=== PATIENT | male | born 1940 | race Caucasian/White ===

== ENCOUNTER 2021-05-23 15:50 | Inpatient (IN) | payer MEDICARE ==
[2021-05-23 15:58] LABS: Glucose,Whole Blood 152 mg/dL (75-99)
[2021-05-23] MEDS ORDERED: SODIUM CHLORIDE 0.9% 1,000 ML IV ONE (16:10)
--- NOTE | 2021-05-23 16:13 | ED ---
General Adult HPI - General Chief complaint: Altered Mental Status Stated complaint: AMS Time Seen by Provider: 05/23/21 15:58 Source: patient, EMS, RN notes reviewed Mode of arrival: EMS Limitations: altered mental status - History of Present Illness Initial comments: Patient is a pleasant 81-year-old male presenting to the emergency department with concerns for change in mental status. Patient is somewhat a poor historian. Patient reportedly drove to his friend's house and was altered. Unclear onset. Patient denies any complaints. Patient denies any weakness. - Related Data Home Medications Medication Instructions Recorded Confirmed Unable To Assess [Unable to Assess] 05/23/21 05/23/21 Allergies Allergy/AdvReac Type Severity Reaction Status Date / Time Unable to Assess Allergy Verified 05/23/21 15:58 Review of Systems ROS Statement: Those systems with pertinent positive or pertinent negative responses have been documented in the HPI. ROS Other: All systems not noted in ROS Statement are negative. Constitutional: Denies: fever Eyes: Denies: eye pain ENT: Denies: ear pain Respiratory: Denies: cough Cardiovascular: Denies: chest pain Endocrine: Denies: fatigue Gastrointestinal: Denies: abdominal pain Genitourinary: Denies: dysuria Musculoskeletal: Denies: back pain Skin: Denies: rash Neurological: Reports: as per HPI. Denies: headache, weakness Past Medical History Past Medical History: Unable to Obtain History of Any Multi-Drug Resistant Organisms: Unobtainable Past Surgical History: Unable to Obtain Past Psychological History: Unable to Obtain Smoking Status: Unknown if ever smoked Past Alcohol Use History: Unable to Obtain Past Drug Use History: Unable to Obtain General Exam Limitations: no limitations General appearance: alert, in no apparent distress Head exam: Present: normocephalic Eye exam: Present: normal appearance, PERRL, EOMI ENT exam: Present: normal oropharynx Neck exam: Present: normal inspection Respiratory exam: Present: normal lung sounds bilaterally Cardiovascular Exam: Present: regular rate, normal rhythm GI/Abdominal exam: Absent: tenderness Extremities exam: Present: normal inspection, full ROM. Absent: tenderness Neurological exam: Present: alert, altered, CN II-XII intact. Absent: motor sensory deficit Expanded Neurological exam: Present: protecting the airway, other (Questionable mild slurred speech intermittently.) Patient oriented to: Present: person. Absent: place, time Cranial nerves: EOM's Intact: Normal Sensory exam: Upper Extremity Light Touch: Normal, Lower Extremity Light Touch: Normal Motor strength exam: RUE: 5, LUE: 5, RLE: 5, LLE: 5 Eye Response: (4) open spontaneously Motor Response: (6) obeys commands Verbal Response: (5) oriented Psychiatric exam: Present: normal affect, normal mood Skin exam: Present: normal color Course Vital Signs 05/23/21 05/23/21 15:52 17:35 Temperature 98.1 F Pulse Rate 104 H 99 Respiratory 20 20 Rate Blood Pressure 204/110 192/102 O2 Sat by Pulse 97 97 Oximetry EKG Findings - EKG Comments: EKG Findings:: Normal sinus rhythm with rate of 92. CA 164. QRS 128. QT 356. QTc 440. Left axis. Right bundle branch block. No acute ST change. Medical Decision Making - Medical Decision Making Patient reevaluated and unchanged. Case was discussed with Dr. Bryant, who will admit covering hospital call. - Lab Data Result diagrams: 05/23/21 16:27 05/23/21 16:27 Lab Results 05/23/21 05/23/21 05/23/21 Range/Units 15:56 16:27 16:27 WBC 9.9 (3.8-10.6) k/uL RBC 4.65 (4.30-5.90) m/uL Hgb 14.5 (13.0-17.5) gm/dL Hct 43.8 (39.0-53.0) % MCV 94.0 (80.0-100.0) fL MCH 31.1 (25.0-35.0) pg MCHC 33.1 (31.0-37.0) g/dL RDW 12.8 (11.5-15.5) % Plt Count 227 (150-450) k/uL MPV 7.3 Neutrophils % (Manual) 79 % Lymphocytes % (Manual) 17 % Monocytes % (Manual) 3 % Eosinophils % (Manual) 1 % Neutrophils # MASTER PRINTER Neutrophils # (Manual) 7.82 H (1.3-7.7) k/uL Lymphocytes # (Manual) 1.68 (1.0-4.8) k/uL Monocytes # (Manual) 0.30 (0-1.0) k/uL Eosinophils # (Manual) 0.10 (0-0.7) k/uL Nucleated RBCs 0 (0-0) /100 WBC Polychromasia Present PT 9.4 (9.0-12.0) sec INR 0.8 (<1.2) APTT 22.1 (22.0-30.0) sec Sodium (137-145) mmol/L Potassium (3.5-5.1) mmol/L Chloride (98-107) mmol/L Carbon Dioxide (22-30) mmol/L Anion Gap mmol/L BUN (9-20) mg/dL Creatinine (0.66-1.25) mg/dL Est GFR (CKD-EPI)AfAm (>60 ml/min/1.73 sqM) Est GFR (CKD-EPI)NonAf (>60 ml/min/1.73 sqM) Glucose (74-99) mg/dL POC Glucose (mg/dL) 152 H (75-99) mg/dL POC Glu Trademark Attorney ID Viky Badillo Calcium (8.4-10.2) mg/dL Total Bilirubin (0.2-1.3) mg/dL AST (17-59) U/L ALT (4-49) U/L Alkaline Phosphatase (38-126) U/L Troponin I (0.000-0.034) ng/mL Total Protein (6.3-8.2) g/dL Albumin (3.5-5.0) g/dL Urine Color Urine Appearance (Clear) Urine pH (5.0-8.0) Ur Specific Tolley (1.001-1.035) Urine Protein (Negative) Urine Glucose (UA) (Negative) Urine Ketones (Negative) Urine Blood (Negative) Urine Nitrite (Negative) Urine Bilirubin (Negative) Urine Urobilinogen (<2.0) mg/dL Ur Leukocyte Esterase (Negative) Urine Opiates Screen (NotDetected) Ur Oxycodone Screen (NotDetected) Urine Methadone Screen (NotDetected) Ur Propoxyphene Screen (NotDetected) Ur Barbiturates Screen (NotDetected) U Tricyclic Antidepress (NotDetected) Ur Phencyclidine Scrn (NotDetected) Ur Amphetamines Screen (NotDetected) U Methamphetamines Scrn (NotDetected) U Benzodiazepines Scrn (NotDetected) Urine Cocaine Screen (NotDetected) U Marijuana (THC) Screen (NotDetected) Coronavirus (PCR) (Not Detectd) 05/23/21 05/23/21 05/23/21 Range/Units 16:27 16:27 16:27 WBC (3.8-10.6) k/uL RBC (4.30-5.90) m/uL Hgb (13.0-17.5) gm/dL Hct (39.0-53.0) % MCV (80.0-100.0) fL MCH (25.0-35.0) pg MCHC (31.0-37.0) g/dL RDW (11.5-15.5) % Plt Count (150-450) k/uL MPV Neutrophils % (Manual) % Lymphocytes % (Manual) % Monocytes % (Manual) % Eosinophils % (Manual) % Neutrophils # Neutrophils # (Manual) (1.3-7.7) k/uL Lymphocytes # (Manual) (1.0-4.8) k/uL Monocytes # (Manual) (0-1.0) k/uL Eosinophils # (Manual) (0-0.7) k/uL Nucleated RBCs (0-0) /100 WBC Polychromasia PT (9.0-12.0) sec INR (<1.2) APTT (22.0-30.0) sec Sodium 139 (137-145) mmol/L Potassium 4.2 (3.5-5.1) mmol/L Chloride 103 (98-107) mmol/L Carbon Dioxide 26 (22-30) mmol/L Anion Gap 10 mmol/L BUN 21 H (9-20) mg/dL Creatinine 1.05 (0.66-1.25) mg/dL Est GFR (CKD-EPI)AfAm 77 (>60 ml/min/1.73 sqM) Est GFR (CKD-EPI)NonAf 66 (>60 ml/min/1.73 sqM) Glucose 158 H (74-99) mg/dL POC Glucose (mg/dL) (75-99) mg/dL POC Glu Trademark Attorney ID Calcium 9.0 (8.4-10.2) mg/dL Total Bilirubin 0.4 (0.2-1.3) mg/dL AST 26 (17-59) U/L ALT 18 (4-49) U/L Alkaline Phosphatase 69 (38-126) U/L Troponin I <0.012 (0.000-0.034) ng/mL Total Protein 6.7 (6.3-8.2) g/dL Albumin 3.9 (3.5-5.0) g/dL Urine Color Light Yellow Urine Appearance Clear (Clear) Urine pH 5.0 (5.0-8.0) Ur Specific Tolley 1.009 (1.001-1.035) Urine Protein Negative (Negative) Urine Glucose (UA) Negative (Negative) Urine Ketones Negative (Negative) Urine Blood Negative (Negative) Urine Nitrite Negative (Negative) Urine Bilirubin Negative (Negative) Urine Urobilinogen <2.0 (<2.0) mg/dL Ur Leukocyte Esterase Negative (Negative) Urine Opiates Screen Not Detected (NotDetected) Ur Oxycodone Screen Not Detected (NotDetected) Urine Methadone Screen Not Detected (NotDetected) Ur Propoxyphene Screen Not Detected (NotDetected) Ur Barbiturates Screen Not Detected (NotDetected) U Tricyclic Antidepress Not Detected (NotDetected) Ur Phencyclidine Scrn Not Detected (NotDetected) Ur Amphetamines Screen Not Detected (NotDetected) U Methamphetamines Scrn Not Detected (NotDetected) U Benzodiazepines Scrn Not Detected (NotDetected) Urine Cocaine Screen Not Detected (NotDetected) U Marijuana (THC) Screen Not Detected (NotDetected) Coronavirus (PCR) (Not Detectd) 05/23/21 Range/Units 17:43 WBC (3.8-10.6) k/uL RBC (4.30-5.90) m/uL Hgb (13.0-17.5) gm/dL Hct (39.0-53.0) % MCV (80.0-100.0) fL MCH (25.0-35.0) pg MCHC (31.0-37.0) g/dL RDW (11.5-15.5) % Plt Count (150-450) k/uL MPV Neutrophils % (Manual) % Lymphocytes % (Manual) % Monocytes % (Manual) % Eosinophils % (Manual) % Neutrophils # Neutrophils # (Manual) (1.3-7.7) k/uL Lymphocytes # (Manual) (1.0-4.8) k/uL Monocytes # (Manual) (0-1.0) k/uL Eosinophils # (Manual) (0-0.7) k/uL Nucleated RBCs (0-0) /100 WBC Polychromasia PT (9.0-12.0) sec INR (<1.2) APTT (22.0-30.0) sec Sodium (137-145) mmol/L Potassium (3.5-5.1) mmol/L Chloride (98-107) mmol/L Carbon Dioxide (22-30) mmol/L Anion Gap mmol/L BUN (9-20) mg/dL Creatinine (0.66-1.25) mg/dL Est GFR (CKD-EPI)AfAm (>60 ml/min/1.73 sqM) Est GFR (CKD-EPI)NonAf (>60 ml/min/1.73 sqM) Glucose (74-99) mg/dL POC Glucose (mg/dL) (75-99) mg/dL POC Glu Trademark Attorney ID Calcium (8.4-10.2) mg/dL Total Bilirubin (0.2-1.3) mg/dL AST (17-59) U/L ALT (4-49) U/L Alkaline Phosphatase (38-126) U/L Troponin I (0.000-0.034) ng/mL Total Protein (6.3-8.2) g/dL Albumin (3.5-5.0) g/dL Urine Color Urine Appearance (Clear) Urine pH (5.0-8.0) Ur Specific Tolley (1.001-1.035) Urine Protein (Negative) Urine Glucose (UA) (Negative) Urine Ketones (Negative) Urine Blood (Negative) Urine Nitrite (Negative) Urine Bilirubin (Negative) Urine Urobilinogen (<2.0) mg/dL Ur Leukocyte Esterase (Negative) Urine Opiates Screen (NotDetected) Ur Oxycodone Screen (NotDetected) Urine Methadone Screen (NotDetected) Ur Propoxyphene Screen (NotDetected) Ur Barbiturates Screen (NotDetected) U Tricyclic Antidepress (NotDetected) Ur Phencyclidine Scrn (NotDetected) Ur Amphetamines Screen (NotDetected) U Methamphetamines Scrn (NotDetected) U Benzodiazepines Scrn (NotDetected) Urine Cocaine Screen (NotDetected) U Marijuana (THC) Screen (NotDetected) Coronavirus (PCR) Not Detected (Not Detectd) - Radiology Data Radiology results: report reviewed (Computed tomography scan of the brain reveals infarcts that appear old new from previous.), image reviewed (Chest x- ray shows mild interstitial infiltrate and atelectasis.) Disposition Clinical Impression: Altered mental status Disposition: ADMITTED IP TO THIS HOSP Is patient prescribed a controlled substance at d/c from ED?: No Referrals: None,Stated [Primary Care Provider] - 1-2 days Decision Time: 18:59
[2021-05-23 16:39] LABS: Appearance,Urine Clear (Clear); Bilirubin,Urine Negative (Negative); Blood,Urine Negative (Negative); Color,Urine Light Yellow; Glucose,Urine (UA) Negative (Negative); Ketones,Urine Negative (Negative); Leukocyte Esterase,Urine Negative (Negative); Nitrite,Urine Negative (Negative); Protein,Urine Negative (Negative); Specific Gravity,Urine 1.009 (1.001-1.035); Urobilinogen,Urine <2.0 mg/dL (<2.0)
[2021-05-23 16:45] LABS: Albumin 3.9 g/dL (3.5-5.0); HCT 43.8 % (39.0-53.0); HGB 14.5 gm/dL (13.0-17.5); MCH 31.1 pg (25.0-35.0); MCHC 33.1 g/dL (31.0-37.0); Mean Platelet Volume 7.3; Platelet Count 227 k/uL (150-450); Potassium 4.2 mmol/L (3.5-5.1); RBC 4.65 m/uL (4.30-5.90); RDW 12.8 % (11.5-15.5); Total Bilirubin 0.4 mg/dL (0.2-1.3); Total Protein 6.7 g/dL (6.3-8.2); WBC 9.9 k/uL (3.8-10.6)
[2021-05-23 16:52] LABS: Amphetamine Screen,Urine Not Detected (NotDetected); Barbiturate Screen,Urine Not Detected (NotDetected); Benzodiazepines Screen,Urine Not Detected (NotDetected); Cocaine Screen,Urine Not Detected (NotDetected); Methadone Screen, Urine Not Detected (NotDetected); Opiate Screen,Urine Not Detected (NotDetected); Oxycodone Screen, Urine Not Detected (NotDetected); Phencyclidine Screen,Urine Not Detected (NotDetected); Tricyclic Antidepressant,Urine Not Detected (NotDetected); Urn Cannabinoid Scrn Not Detected (NotDetected)
--- NOTE | 2021-05-23 17:07 | CT ---
EXAMINATION TYPE: CT brain wo con DATE OF EXAM: 05/23/2021 COMPARISON: 05/10/2012 HISTORY: altered mental status CT DLP: 1099.4 mGycm Automated exposure control for dose reduction was used. FINDINGS: Images obtained without contrast. There is diffuse cerebral atrophy. There is no mass effect or midli ne shift. There is no sign of intracranial hemorrhage. There is some hypodensity in the left and righ t internal capsule bilaterally. Skull base is intact. Calvarium is intact. IMPRESSION: Cerebral atrophy. 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
[2021-05-23 17:13] LABS: Lymphocytes # (M) 1.68 k/uL (1.0-4.8); Neutrophils # (M) 7.82 k/uL (1.3-7.7); Neutrophils % (M) 79 %; Nucleated Red Blood Cells 0 /100 WBC (0-0); Total Cells Counted 100
[2021-05-23 17:14] LABS: Polychromasia Present
--- NOTE | 2021-05-23 17:20 | XR ---
EXAMINATION TYPE: XR chest 2V DATE OF EXAM: 05/23/2021 COMPARISON: NONE HISTORY: Altered mental status TECHNIQUE: 2 views FINDINGS: Heart is normal. Lungs are clear of consolidation. There are no hilar masses. There are mohit e mild interstitial density at the lung bases. Bony thorax is intact. IMPRESSION: Mild interstitial infiltrate and subsegmental atelectasis at the lung bases. Normal heart . No heart failure.
[2021-05-23 17:25] LABS: INR 0.8 (<1.2); Partial Thromboplastin Time 22.1 sec (22.0-30.0); Prothrombin Time 9.4 sec (9.0-12.0)
[2021-05-23] MEDS ORDERED: amLODIPine 5 MG TAB PO STA ×2 (17:42→20:53)
[2021-05-23] MEDS ORDERED: NALOXONE 0.4 MG/ML 1 ML VIAL IV PRN (18:59)
[2021-05-23] MEDS: ASPIRIN 325 MG TAB PO SCH (20:23)
[2021-05-23] MEDS: SODIUM CHLORIDE 0.9% 1,000 ML IV SCH (20:23)
--- NOTE | 2021-05-24 00:33 | P.HPIM ---
History of Present Illness H&P Date: 05/23/21 Chief Complaint: altered mental status 81 year old male with unknown past medical history patient unable to provide any meaningful history , he was uncooperative initially wanting to leave, with some reassurance, he became pleasant and was only interested in fooling around. he was arm wrestling me, or squeezes my hands really hard during exam , almost kicked me couple times as a joke while doing neuro exam , he looks well, but pleasantly confused and does not provide any meaningful history and he currently denies any medical concerns , and answers with no to all review of systems which is unreliable , otherwise he does not answer any questions related to his living conditions and becomes immediately suspicious when asked such questions. ER reported that he drove himself to a friend house, who found the patient unlike his normal self and a bit more confused, and decided to get him to the hospital for evaluation . workup in the ED showed no electrolytes abnormalities. CT of the brain , suggested some old bilateral lacunar infarcts. Review of Systems ROS unobtainable: due to mental status Past Medical History Past Medical History: Unable to Obtain History of Any Multi-Drug Resistant Organisms: Unobtainable Past Surgical History: Unable to Obtain Past Psychological History: Unable to Obtain Smoking Status: Unknown if ever smoked Past Alcohol Use History: Unable to Obtain Past Drug Use History: Unable to Obtain - Past Family History family Family Medical History: No Reported History Medications and Allergies Home Medications Medication Instructions Recorded Confirmed Type Unable To Assess [Unable to Assess] 05/23/21 05/23/21 History Allergies Allergy/AdvReac Type Severity Reaction Status Date / Time Unable to Assess Allergy Verified 05/23/21 15:58 Physical Exam Vitals: Vital Signs Temp Pulse Resp BP Pulse Ox 05/23/21 20:23 98 18 172/117 93 L 05/23/21 17:35 99 20 192/102 97 05/23/21 15:52 98.1 F 104 H 20 204/110 97 Intake and Output 05/23/21 05/23/21 05/23/21 06:59 14:59 22:59 Other: Weight 81.964 kg Constitutional: No acute distress, paranoid, dressed in his casual clothes refusing hospital gown , not cooperative with meds and care. Eyes: Anicteric sclerae, moist conjunctiva, Pupils equal round reactive to light ENMT: NC/AT otherwise limited Neck: Supple, no masses, or JVD No carotid bruits No thyromegaly Lungs: inspirtory rales audible bilaterally at lung bases otherwise good air entry Clear to percussion Normal respiratory effort, no accessory muscle use Cardiovascular: Heart regular in rate and rhythm, No murmurs, gallops, or rubs No peripheral edema Abdominal: limited exam Soft Nontender, no guarding, rebound or rigidity Abdomen moving with respiration Normoactive bowel sounds Skin: visible portion of the skin looked Normal temperature, tone, texture, turgor Extremities: No digital cyanosis No clubbing Pedal pulses intact and symmetrical Radial pulses intact and symmetrical No calf tenderness Psychiatric: Alert and oriented self only Neuro Muscles Strength 5/5 in all 4 extremities Sensation to light touch grossly present throughout did not cooperated with cranial nerve exam able to stand up quickly when asked , patient did not walk for no specific reason Lymphatics: no palpable cervical or supraclavicular lymph nodes Results CBC & Chem 7: 05/23/21 16:27 05/23/21 16:27 Labs: Abnormal Lab Results - Last 24 Hours (Table) 05/23/21 05/23/21 05/23/21 Range/Units 15:56 16:27 16:27 Neutrophils # (Manual) 7.82 H (1.3-7.7) k/uL BUN 21 H (9-20) mg/dL Glucose 158 H (74-99) mg/dL POC Glucose (mg/dL) 152 H (75-99) mg/dL Assessment and Plan Assessment: patient resisting care altered mental status , unknown underlying cause, rule out stroke ASA, statin check echocardiogram neuro checks neuro eval fall precautions check thyroid function follow up labs CT of the brain reviewed showed old bilateral lacunar infarcts allow permissive hypertension today unknown past medical history blood work overall unremarkable attempt to contact family if possible unable to discuss code status DVT PPX mechanical anticipated length of stay > 2 midnights
[2021-05-24] MEDS ORDERED: cloNIDine HCL 0.2 MG TAB PO PRN (00:35)
[2021-05-24] MEDS ORDERED: LORazepam 2 MG/ML INJ IV STA (07:48)
[2021-05-24] MEDS: SODIUM CHLORIDE 0.9% 1,000 ML IV SCH ×2 (08:13→21:40)
[2021-05-24 09:12] LABS: African American GFR (CKD) 77 (>60 ml/min/1.73 sqM); Anion Gap 8 mmol/L; Blood Urea Nitrogen 15 mg/dL (9-20); Calcium 9.2 mg/dL (8.4-10.2); Carbon Dioxide 26 mmol/L (22-30); Chloride 106 mmol/L (98-107); Glucose 128 mg/dL (74-99); Non-African American GFR(CKD) 66 (>60 ml/min/1.73 sqM); Potassium 3.9 mmol/L (3.5-5.1); Sodium 140 mmol/L (137-145)
[2021-05-24 09:28] LABS: HCT 47.4 % (39.0-53.0); HGB 15.4 gm/dL (13.0-17.5); MCHC 32.6 g/dL (31.0-37.0); MCV 95.2 fL (80.0-100.0); Mean Platelet Volume 7.5; Platelet Count 243 k/uL (150-450); RBC 4.98 m/uL (4.30-5.90); WBC 10.3 k/uL (3.8-10.6)
[2021-05-24 09:59] LABS: Lymphocytes # (M) 1.65 k/uL (1.0-4.8); Monocytes # (M) 0.21 k/uL (0-1.0); Neutrophils # (M) 8.34 k/uL (1.3-7.7); Neutrophils % (M) 81 %; Nucleated Red Blood Cells 0 /100 WBC (0-0); Total Cells Counted 100
--- NOTE | 2021-05-24 10:47 | US ---
EXAMINATION TYPE: US carotid duplex BILAT DATE OF EXAM: 05/24/2021 COMPARISON: NONE CLINICAL HISTORY: possible stroke . AMA, poor historian EXAM MEASUREMENTS: RIGHT: Peak Systolic Velocity (PSV) cm/sec ----- Right CCA: 61.7 ----- Right ICA: 59.8 ----- Right ECA: 140.0 ICA/CCA ratio: 1.0 RIGHT: End Diastole cm/sec ----- Right CCA: 9.1 ----- Right ICA: 13.0 ----- Right ECA: 0.0 LEFT: Peak Systolic Velocity (PSV) cm/sec ----- Left CCA: 90.1 ----- Left ICA: 90.7 ----- Left ECA: 130.0 ICA/CCA ratio: 1.0 LEFT: End Diastole cm/sec ----- Left CCA: 9.8 ----- Left ICA: 18.9 ----- Left ECA: 0.0 VERTEBRALS (direction of flow): Right Vertebral: Antegrade Left Vertebral: Antegrade Rhythm: Normal No wall thickening or plaque. No significant stenosis. Bilateral elevated ECA velocities. IMPRESSION: Less than 50% stenosis of the bilateral carotid bifurcations. Criteria for Assigning % of Stenosis / Diameter reduction (Estimation based on the indirect measurements of the internal carotid artery velocities (ICA PSV). 1. Normal (no stenosis)=ICA PSV < 125 cm/s: ratio < 2.0: ICA EDV<40 cm/s. 2. Less than 50% stenosis=ICA PSV < 125 cm/s: ratio < 2.0: ICA EDV<40 cm/s. 3. 50 to 69% stenosis=ICA PSV of 125 to 230 cm/s: ration 2.0 ? 4.0: ICA EDV 40-100 cm/s. 4. Greater than 70% stenosis to near occlusion= ICA PSV > 230 cm/s: ratio > 4.0: ICA EDV > 100 cm/s. 5. Near occlusion= ICA PSV velocities may be low or undetectable: variable ratio and ICA EDV. 6. Total occlusion=unable to detect flow.
--- NOTE | 2021-05-24 12:17 | P.CNNES ---
History of Present Illness Consult date: 05/24/21 Requesting physician: Sita Fountain Reason for Consult: stroke History of Present Illness: This is a 81-year-old gentleman with unknown medical history who presented emergency department on 05/23/2021 for altered mental status. Patient is a poor historian. History is obtained from medical record that. Per the ED note and it is reported that patient reportedly drove to his friend's house and was altered and unclear onset but he denied any complaints to the ED team and denied any weakness. per the patient's nurse patient is having difficulty speaking and had some slurring of speech. He got agitated and as result he was Ativan 1mg. Upon seeing him he could not provide with history. Some of the workup in the hospital consisted of: Initial vital signs is blood pressure of 204/110, heart rate of 104, respiratory of 20, and per Dr. of 98.1 Fahrenheit oral and pulse ox of 97% room air. Most recent blood pressure is 171/99. CBC with differential is unremarkable Chemistry panel is the initial serum glucose is 158 otherwise the rest of the chemistry panel is unremarkable. TSH is 2.220. Urinalysis negative for urinary tract infection. Urine drug screen is nondetected Garcia virus PCR is negative CT of the head is reported as cerebral atrophy. Bilateral lacunar infarct in the internal capsule which appears old R change compared to old exam and old exam was comparison for CT of the head was in 2013 Per the nurse overnight the patient was agitated and wanted to Levaquin was restless as a result patient received Ativan 1 mg around 7:48am today. Review of Systems Review of system is limited but the parent positive and negative as per HPI. Past Medical History Past Medical History: Unable to Obtain History of Any Multi-Drug Resistant Organisms: Unobtainable Past Surgical History: Unable to Obtain Past Psychological History: Unable to Obtain Smoking Status: Unknown if ever smoked Past Alcohol Use History: Unable to Obtain Past Drug Use History: Unable to Obtain - Past Family History family Family Medical History: No Reported History Medications and Allergies Home Medications Medication Instructions Recorded Confirmed Type Unable To Assess [Unable to Assess] 05/23/21 05/23/21 History Allergies Allergy/AdvReac Type Severity Reaction Status Date / Time Unable to Assess Allergy Verified 05/23/21 15:58 Physical Examination - Vital Signs Vital Signs: Vital Signs Temp Pulse Pulse Resp BP BP Pulse Ox 05/24/21 04:00 88 18 192/88 97 05/24/21 00:00 82 18 179/90 96 05/23/21 23:21 89 18 171/99 95 05/23/21 22:09 85 18 176/112 96 05/23/21 20:23 98 18 172/117 93 L 05/23/21 17:35 99 20 192/102 97 05/23/21 15:52 98.1 F 104 H 20 204/110 97 Intake and Output 05/23/21 05/24/21 05/24/21 22:59 06:59 14:59 Other: Weight 81.964 kg GENERAL: The patient is lying in bed and does not seem in acute distress. CHEST: The heart rate is regular rate rhythm. No murmurs to auscultation. No carotid bruit bilaterally. LUNG: Clear to auscultation bilaterally no wheezing noted throughout. Not labored breathing. ABDOMEN/GI: Bowel sounds present in all 4 quadrants. No tenderness to palpation throughout. NEUROLOGICAL: Higher mental function: The patient is awake, alert, oriented to self. He could not tell me year or month. Patient is able to name telephone correctly but could not name watch or cup. Patient is following few simple commands. It seems he has expressive aphasia. No neglect. Cranial nerves: The pupils are round, equal and reactive to light. Has mild ptosis over the left eyes. Visual farrell are full to confrontation throughout. Extraocular movement is intact no nystagmus is noted. No facial weakness. Is very hard of hearing bilaterally. Tongue is midline and moved [id number] without any difficulty. Has moderate dysarthria. Motor: Gait is deferred. The strength is 5 over 5 throughout uppers and lifting bilateral lower above gravity and no focality noted (could not evaluated lower individual muscle because of cooperation). Normal tone and bulk. Cerebellum: Normal finger to nose over right but would not cooperate for left. Sensation: Could not assess because of cooperation. Reflexes (right/left): 2+ throughout except ankles are 1+. Plantars are mute bilaterally. Results - Laboratory Findings CBC and BMP: 05/24/21 08:12 05/24/21 08:12 Abnormal Lab Findings: Abnormal Labs 01/21/22 01/21/22 01/21/22 15:56 16:27 16:27 Neutrophils # (Manual) 7.82 H BUN 21 H Glucose 158 H POC Glucose (mg/dL) 152 H 05/24/21 05/24/21 08:12 08:12 Neutrophils # (Manual) 8.34 H BUN Glucose 128 H POC Glucose (mg/dL) Assessment and Plan Assessment: Altered mental status: Encephalopathy of unknown etiology. On examination I feel patient has expressive aphasia and dysarthria: Rule out acute ischemic stroke. 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 2-D echo, carotid duplex is ordered and is pending I ordered MRI of the brain and routine EEG. Ordered vitamin B12, folate. Lipid pane, TSH and HbA1c are ordered is pending PT, OT, [employer] SCIENTIST are consulted I started the patient on Seroquel 25 mg daily at bedtime for agitation. Please avoid any sedation especially in elderly patient which can worsens his agitation. Sedation should be used as last resort in elderly patient's. We'll defer the rest of the medical management to primary team The plan was discussed with the primary team and his nurse. We'll try to find out whether the patient has any family members or friends that we can contact for more history. Thank you for the consultation. UPDATE: The patient's nurse spoke with the patient's friend, who stated that patient resides byself but is independent and it seems he went to lead mechanic shop yesterday then went next door to restaurant and was confused. He is very hard of hearing at baseline and stutters. The friend is not sure about his medical history. Fredo Mcfadden M.D. Neuro-Hospitalist Time with Patient: Greater than 30
--- NOTE | 2021-05-24 14:01 | ECHOF ---
Referral Reason:possible stroke MEASUREMENTS -------- HEIGHT: 175.3 cm WEIGHT: 4.5 kg BP: IVSd: 1.3 cm (0.6 - 1.1) LVIDd: 3.8 cm (3.9 - 5.3) LVPWd: 1.5 cm (0.6 - 1.1) IVSs: 1.7 cm LVIDs: 2.7 cm LVPWs: 1.6 cm Ao Diam: 2.6 cm (2.0 - 3.7) AV Cusp: 3.2 cm (1.5 - 2.6) MV E Torres: 0.09 m/s MV DecT: 98 ms MV A Torres: 0.04 m/s MV E/A Ratio: 2.16 RAP: 5.00 mmHg RVSP: 13.38 mmHg FINDINGS -------- Sinus rhythm. This was a technically adequate study. LV size, wall thickness and systolic function are normal, with an EF greater than 55%. The left brennen tricular size is normal. The right ventricle is normal in size. The left atrial size is normal. The right atrial size is normal. There is mild aortic valve sclerosis. There is no evidence of aortic regurgitation. Mild mitral regurgitation is present. Mild tricuspid regurgitation present. Right ventricular systolic pressure is normal at < 35 mmHg. The pulmonic valve was not well visualized. CONCLUSIONS -------- 1. LV size, wall thickness and systolic function are normal, with an EF greater than 55%. 2. The left ventricular size is normal. 3. The right ventricle is normal in size. 4. The left atrial size is normal. 5. The right atrial size is normal. 6. There is mild aortic valve sclerosis. 7. Mild mitral regurgitation is present. 8. Mild tricuspid regurgitation present. 9. The pulmonic valve was not well visualized. RENT AND HOUSING INVESTIGATOR: Ewa Askew RDCS
--- NOTE | 2021-05-24 15:04 | MR ---
EXAMINATION TYPE: MR brain wo/w con DATE OF EXAM: 05/24/2021 COMPARISON: CT brain yesterday HISTORY: Altered mental status. CONTRAST: Standard multiplanar, multisequence MRI departmental protocol images were obtained without contrast a nd with 8 mL intravenous Gadavist gadolinium contrast. There is diffuse cerebral atrophy. There is no mass effect or midline shift. There is mild enlargemen t of the ventricles. There is a 2 x 0.7 cm area of increased signal in the right internal capsule on the diffusion images suggestive of an acute infarct. There is patchy increased signal in the perivent ricular white matter on the T2 and FLAIR images with coalescent areas measuring up to 1 cm in thickne ss. There is irregular mild increased signal in the amos in the midline and towards the left side measuri ng 10 mm and consistent with ischemia. There is no evidence of posterior fossa mass. There is thinning of the corpus callosum. There is no e vidence of orbital mass. Sella turcica appears normal. IMPRESSION: There is evidence of acute or subacute infarct right internal capsule. Cerebral atrophy and extensive white matter changes consistent with chronic small vessel ischemia or demyelinating disease.
[2021-05-24] MEDS: ATORVASTATIN 40 MG TAB PO SCH (15:22)
[2021-05-24] MEDS: ASPIRIN 325 MG TAB PO SCH (15:22)
[2021-05-24 17:42] LABS: LDL Cholesterol,Calculated 132.8 mg/dL (0.0-131.0); VLDL Calculation 14.92 mg/dL (5.00-40.00)
--- NOTE | 2021-05-24 18:11 | P.PN ---
Subjective Progress Note Date: 05/24/21 (delayed charting seen at 1030) Principal diagnosis: confusion Patient is an 81-year-old female with a known past medical history who was brought in by friends do to confusion. In the ER he underwent an extensive evaluation. CT head was obtained which showed bilateral lacunar infarcts. He was found to be hypertensive with blood pressure of 204/110 on arrival. Laboratory analysis is unremarkable. He was admitted for possible stroke. He was seen by neurology who ordered an MRI, EEG. Patient seen and examined at bedside. He wants to leave and does not understand the hospital. He believes it is 2001. He is able to tell me his first and last name and that he has born in January but not the date and year. He is also very worried about how much information we all know about him. General: non toxic, no distress, appears at stated age Derm: warm, dry Head: atraumatic, normocephalic, symmetric Eyes: EOMI, no lid lag, anicteric sclera Mouth: no lip lesion, mucus membranes moist Cardiovascular: S1S2 reg, no murmur, positive posterior tibial pulse bilateral, Lungs: CTA bilateral, no rhonchi, no rales , no accessory muscle use Abdominal: soft, nontender to palpation, no guarding, no appreciable organomegaly Ext: no gross muscle atrophy, no edema, no contractures Neuro: Pupils equal round reactive to light, extraocular motion intact, finger to nose normal, muscle strength 5 out of 5 in bilateral upper and lower extremities. Word finding difficulties with stuttering. Psych: Alert, oriented 1. 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 Discussed with neurology -Await echocardiogram, EEG, and MRI of the brain -All of her permissive hypertension -Lipid profile, TSH, and vitamin B12 as well as folic acid are all within normal limits -Neuro checks -Aspirin -Statin -Telemetry DVT prophylaxis: Lovenox Discussed with: patient, nursing, neurology Anticipated discharge: undetermined Anticipated discharge place: undetermined A total of 35 minutes was spent on the care of this complex patient more than 50% of the time was spent in counseling and care coordination. Objective - Vital Signs Vital signs: Vital Signs Temp 98 F 05/24/21 12:00 Pulse 77 05/24/21 12:00 Resp 18 05/24/21 12:00 BP 147/75 05/24/21 12:00 Pulse Ox 97 05/24/21 12:00 Intake & Output 05/23/21 05/24/21 05/24/21 18:59 06:59 18:59 Output Total 1 Balance -1 Weight 81.964 kg 81.964 kg Output: Urine 1 Other: # Voids 1 - Labs CBC & Chem 7: 05/24/21 08:12 05/24/21 08:12 Labs: Abnormal Lab Results - Last 24 Hours (Table) 05/24/21 05/24/21 05/24/21 Range/Units 08:12 08:12 08:12 Neutrophils # (Manual) 8.34 H (1.3-7.7) k/uL Glucose 128 H (74-99) mg/dL Hemoglobin A1c 6.5 H (0.0-6.0) % LDL Cholesterol, Calc 132.8 H (0.0-131.0) mg/dL
[2021-05-24] MEDS: QUEtiapine 25 MG TAB PO SCH (20:40)
[2021-05-25] MEDS: ENOXAPARIN 40 MG/0.4 ML SYRINGE SQ SCH (09:37)
[2021-05-25] MEDS: ATORVASTATIN 40 MG TAB PO SCH (09:38)
[2021-05-25] MEDS: ASPIRIN 81 MG PO SCH (09:38)
[2021-05-25] MEDS: CLOPIDOGREL 75 MG TAB PO SCH (09:38)
[2021-05-25] MEDS: lisinopriL 20 MG TAB PO SCH (09:38)
[2021-05-25] MEDS: SODIUM CHLORIDE 0.9% 1,000 ML IV SCH (09:39)
--- NOTE | 2021-05-25 14:16 | P.PN ---
Subjective Progress Note Date: 05/25/21 The patient is seen at bedside and per his nurse no confusion. According to nurse, she spoke to his sister who feels he is slurred and his language is not same as prior. Also, it seems, the patient is not following-up with PCP and does not spend any money for medication. He was independent prior to this. Objective - Vital Signs Vital signs: Vital Signs Temp 98 F 05/25/21 08:00 Pulse 78 05/25/21 11:46 Resp 18 05/25/21 11:46 BP 132/64 05/25/21 11:46 Pulse Ox 97 05/25/21 11:46 Intake & Output 05/24/21 05/25/21 05/25/21 18:59 06:59 18:59 Output Total 3 Balance -3 Weight 81.964 kg Output: Urine 3 Other: # Voids 1 2 - Exam GENERAL: The patient is lying in bed and does not seem in acute distress. NEUROLOGICAL: Higher mental function: The patient is awake, alert, oriented to self. He stated the year is 2021 and month is July. He could not tell me place but to options he correctly chose Hospital. Patient is able to name telephone, glasses, and pen. Patient is following few simple commands. It seems he has mi ld expressive aphasia. There is some delay in response. No neglect. Cranial nerves: The pupils are round, equal and reactive to light. Has mild ptosis over the left eye. Visual farrell are full to confrontation throughout. Extraocular movement is intact no nystagmus is noted. No facial weakness. Is very hard of hearing bilaterally. Tongue is midline and moved [id number] without any difficulty. Has moderate dysarthria. Motor: Gait is deferred. The strength is 5 over 5 throughout uppers and lowers. Normal tone and bulk. Cerebellum: Normal finger to nose bilaterally.. Sensation: Was hard to assess but on repeated try he stated normal.. Reflexes (right/left): 2+ throughout except ankles are 1+. Plantars are mute bilaterally. WORK-UP: TSH is 2.220. Lipid panel is triglyceride of 74, cholesterol 197, LDL of 132, HDL of 49. Serum Vitamin B12 is 275 was considered low normal. Folate is 10.5. Hemoglobin A1c is 6.5 Urinalysis negative for urinary tract infection. Urine drug screen is nondetected Rousseau virus PCR is negative 2-D echo was reported as left ventricular size is normal. Ejection fraction greater than 55%. Left atrial size is normal. Carotid duplex is reported as less than 50% stenosis bilateral carotid bifurcation. CT of the head is reported as cerebral atrophy. Bilateral lacunar infarct in the internal capsule which appears old R change compared to old exam and old exam was comparison for CT of the head was in 2012 MRI of the brain is reported as there is evidence of acute or subacute infarct in the right internal capsule. She will atrophy and extensive white matter changes consistent with chronic small vessel ischemia or edema in disease. I personally reviewed the CT of the head and I felt that ischemic stroke was more Rousseau radiata them basal ganglia in location. - Labs CBC & Chem 7: 05/24/21 08:12 05/24/21 08:12 Labs: Abnormal Lab Results - Last 24 Hours (Table) 05/24/21 Range/Units 08:12 LDL Cholesterol, Calc 132.8 H (0.0-131.0) mg/dL Assessment and Plan Assessment: * Acute to subacute ischemic stroke (It is reported as right basal ganglia but I felt more rousseau radiata). On physical exam has mild expressive aphasia and dysarthria. Etiology likely small vessel disease. No IV tpa since outside window. 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 * Very hard of hearing bilaterally * Non-compliant seeing Primary care and not taking medication (his sister notified nurse) Plan: * Started the patient on ASA 81mg and Plavix 75mg (new for both during hospital stay). The patient to be on dual antiplatelets for 21 days and after that to stop Plavix but indefinitely continue aspirin 81 mg daily. Continue Lipitor 40 mg daily at bedtime for secondary stroke prophylaxis with LDL goal less than 70 and strokes. * On cardiac monitoring and the while he was on it there is no A. fib or flutter per the nurse patient refuses to wear it. * Very low normal Vitamin B12 (275). Normal is between 200-944. I started the patient on vitamin B-12 1000 g IM for 2 days and after that by mouth after that. I started the patient on folic acid 1 mg daily * Continue neuro checks * PT, OT, BAR CAPTAIN are consulted * I canceled the EEG since it is not warranted since his symptoms are due to stroke and not altered mental status. Per nurse patient has not had altered mental status yesterday in AM or overnight. If patient has any further confusion recommend getting a routine EEG. * I started the patient on gabapentin the 100 mg 1 tablet twice a day since she was complaining of numbness and tingling of both hands. Possibly consider EMG with nerve conduction as an outpatient if the patient continues to have neuropathy. His neuropathy could be due to diabetes another possibility is a very low normal vitamin B12. * Continue Seroquel 25 mg daily at bedtime for agitation. Please avoid any sedation especially in elderly patient which can worsens his agitation. Sedation should be used as last resort in elderly patient's. * We'll defer the rest of the medical management to primary team. * Upon discharge the patient needs to follow-up with a neurologist as outpatient within 1-2 weeks. The plan was discussed with the primary team and his nurse. If patient continues to be doing well by tomorrow no further work-up and patient is clear for discharge by tomorrow from neurological perspective. Dr. Tyson will start neurology service tomorrow AM. Fredo Mcfadden M.D. Neuro-Hospitalist Time with Patient: Less than 30
[2021-05-25] MEDS ORDERED: GABAPENTIN 100 MG CAP PO STA (14:17)
[2021-05-25] MEDS: FOLIC ACID 1 MG TAB PO SCH (16:48)
[2021-05-25] MEDS: CYANOCOBALAMIN 1,000 MCG/ML 1 ML VIAL IM SCH (16:48)
--- NOTE | 2021-05-25 18:00 | P.PN ---
Subjective Progress Note Date: 05/25/21 (Delayed charting patient seen at 10:30) Principal diagnosis: confusion Patient is an 81-year-old female with a known past medical history who was brought in by friends do to confusion. In the ER he underwent an extensive evaluation. CT head was obtained which showed bilateral lacunar infarcts. He was found to be hypertensive with blood pressure of 204/110 on arrival. Laboratory analysis is unremarkable. He was admitted for possible stroke. He was seen by neurology who ordered an MRI, EEG. MRI brain demonstrated acute or subacute infarct in the right internal capsule, carotid Dopplers are less than 50% stenosis bilateral. Echocardiogram demonstrated an ejection fraction of 55%, telemetry without any signs of atrial fibrillation Patient seen and examined at bedside. He was wanting to be discharged. He is forgetting that he had an acute stroke. He denies any nausea, vomiting, or chest pain. He states he is fine to return home. General: non toxic, no distress, appears at stated age Derm: warm, dry Head: atraumatic, normocephalic, symmetric Eyes: EOMI, no lid lag, anicteric sclera Mouth: no lip lesion, mucus membranes moist Cardiovascular: S1S2 reg, no murmur, positive posterior tibial pulse bilateral, Lungs: CTA bilateral, no rhonchi, no rales , no accessory muscle use Abdominal: soft, nontender to palpation, no guarding, no appreciable organomegaly Ext: no gross muscle atrophy, no edema, no contractures Neuro: Pupils equal round reactive to light, extraocular motion intact, uvula elevation equal, no tongue deviation finger to nose normal, muscle strength 5 out of 5 in bilateral upper and lower extremities. Patient is able to maintain a phone and a watch. He calls a fork filter but is able to tell me that he uses to eat. Psych: Alert, oriented to self and being in the hospital. He is unable to remember which hospital. He believes it is 2001. Assessment/Plan: Subacute infarct in the right internal capsule Old basil ganglia ischemic stroke Hearing difficulties Hypertensive urgency-undetermined if in reaction to stroke or could be causing encephalopathy -Neurology recommendations appreciated. Discussed with neurology -Patient has completed permissive hypertension. Lisinopril initiated. -Lipid profile, TSH, and vitamin B12 as well as folic acid are all within normal limits -Neuro checks -Aspirin, Plavix -Statin -Telemetry DVT prophylaxis: Lovenox Discussed with: patient, nursing, neurology Anticipated discharge: Likely in a.m. Anticipated discharge place: Anticipate will need rehab A total of 35 minutes was spent on the care of this complex patient more than 50% of the time was spent in counseling and care coordination. Active Medications Aspirin (Aspirin 81 Mg) 81 mg PO DAILY [facility] Last Admin: 05/25/21 09:38 Dose: 81 mg Documented by: Atorvastatin Calcium (Atorvastatin 40 Mg Tab) 40 mg PO DAILY [facility] Last Admin: 05/25/21 09:38 Dose: 40 mg Documented by: Clonidine (Clonidine Hcl 0.2 Mg Tab) 0.2 mg PO TID PRN PRN Reason: Blood Pressure - High Clopidogrel Bisulfate (Clopidogrel 75 Mg Tab) 75 mg PO DAILY [facility] Last Admin: 05/25/21 09:38 Dose: 75 mg Documented by: Cyanocobalamin (Cyanocobalamin 1,000 Mcg/Ml 1 Ml Vial) 1,000 mcg IM DAILY [facility] Stop: 05/26/21 17:00 Last Admin: 05/25/21 16:48 Dose: Not Given Documented by: Cyanocobalamin (Cyanocobalamin 500 Mcg Tab) 1,000 mcg PO DAILY [facility] Enoxaparin Sodium (Enoxaparin 40 Mg/0.4 Ml Syringe) 40 mg SQ DAILY [facility] Last Admin: 05/25/21 09:37 Dose: 40 mg Documented by: Folic Acid (Folic Acid 1 Mg Tab) 1 mg PO DAILY [facility] Last Admin: 05/25/21 16:48 Dose: Not Given Documented by: Gabapentin (Gabapentin 100 Mg Cap) 100 mg PO BID [facility] Sodium Chloride (Saline 0.9%) 1,000 mls @ 75 mls/hr IV .[id number] [facility] Last Admin: 05/25/21 09:39 Dose: Not Given Documented by: Lisinopril (Lisinopril 20 Mg Tab) 20 mg PO DAILY [facility] Last Admin: 05/25/21 09:38 Dose: 20 mg Documented by: Naloxone HCl (Naloxone 0.4 Mg/Ml 1 Ml Vial) 0.2 mg IV Q2M PRN PRN Reason: Opioid Reversal Quetiapine Fumarate (Quetiapine 25 Mg Tab) [address] [facility] Last Admin: 05/24/21 20:40 Dose: 25 mg Documented by: Objective - Vital Signs Vital signs: Vital Signs Temp 98 F 05/25/21 08:00 Pulse 78 01/23/22 11:46 Resp 18 05/25/21 11:46 BP 132/64 05/25/21 11:46 Pulse Ox 97 05/25/21 11:46 Intake & Output 05/24/21 05/25/21 05/25/21 18:59 06:59 18:59 Output Total 3 Balance -3 Weight 81.964 kg Output: Urine 3 Other: Voiding Method Incontinent # Voids 1 2 1 - Labs CBC & Chem 7: 05/24/21 08:12 05/24/21 08:12
[2021-05-25] MEDS: QUEtiapine 25 MG TAB PO SCH (20:41)
[2021-05-25] MEDS: GABAPENTIN 100 MG CAP PO SCH (20:50)
[2021-05-26] MEDS: SODIUM CHLORIDE 0.9% 1,000 ML IV SCH ×3 (01:12→20:58)
[2021-05-26] MEDS: ASPIRIN 81 MG PO SCH (09:03)
[2021-05-26] MEDS: CLOPIDOGREL 75 MG TAB PO SCH (09:03)
[2021-05-26] MEDS: LINAGLIPTIN 5 MG TABLET PO SCH (09:04)
[2021-05-26] MEDS: CYANOCOBALAMIN 1,000 MCG/ML 1 ML VIAL IM SCH (09:04)
[2021-05-26] MEDS: ENOXAPARIN 40 MG/0.4 ML SYRINGE SQ SCH ×2 (09:04→09:19)
[2021-05-26] MEDS: ATORVASTATIN 40 MG TAB PO SCH (09:04)
[2021-05-26] MEDS: FOLIC ACID 1 MG TAB PO SCH (09:04)
[2021-05-26] MEDS: lisinopriL 20 MG TAB PO SCH (09:04)
[2021-05-26] MEDS: GABAPENTIN 100 MG CAP PO SCH ×2 (09:09→20:58)
--- NOTE | 2021-05-26 13:33 | P.PN ---
Subjective Progress Note Date: 05/26/21 Principal diagnosis: confusion Patient is an 81-year-old female with a known past medical history who was brought in by friends do to confusion. In the ER he underwent an extensive evaluation. CT head was obtained which showed bilateral lacunar infarcts. He w as found to be hypertensive with blood pressure of 204/110 on arrival. Laboratory analysis is unremarkable. He was admitted for possible stroke. He was seen by neurology who ordered an MRI, EEG. MRI brain demonstrated acute or subacute infarct in the right internal capsule, carotid Dopplers are less than 50% stenosis bilateral. Echocardiogram demonstrated an ejection fraction of 55%, telemetry without any signs of atrial fibrillation. LDL was 132. A1C 6.5 consistent wiht pre-diabetes. He was having significant speech and cognitive dysfunction and will require rehab placement. Patient seen and examined at bedside. He is asked to go home. We again discussed that he had a stroke and he is having word finding difficulties and difficulty with concentration that he needs to work with therapy. He again struggles with these concepts. General: non toxic, no distress, appears at stated age Derm: warm, dry Head: atraumatic, normocephalic, symmetric Eyes: EOMI, no lid lag, anicteric sclera Mouth: no lip lesion, mucus membranes moist Cardiovascular: S1S2 reg, no murmur, positive posterior tibial pulse bilateral, Lungs: CTA bilateral, no rhonchi, no rales , no accessory muscle use Abdominal: soft, nontender to palpation, no guarding, no appreciable organomegaly Ext: no gross muscle atrophy, no edema, no contractures Neuro: Pupils equal round reactive to light, extraocular motion intact, uvula elevation equal, no tongue deviation finger to nose normal, muscle strength 5 out of 5 in bilateral upper and lower extremities. Patient is able to maintain a phone and a watch. He calls a fork filter but is able to tell me that he uses to eat. Psych: Alert, oriented to self and being in the hospital. 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 -Patient has completed permissive hypertension. Lisinopril initiated and blood pressure well controlled -Lipid profile, TSH, and vitamin B12 as well as folic acid are all within normal limits -Neuro checks -Aspirin, Plavix -Statin -Telemetry Diabetes mellitus type 2 newly discovered, A1c 6.5 -Start should gentle and -Follow blood sugars every morning -Carb consistent diet. DVT prophylaxis: Lovenox Discussed with: patient, nursing, neurology Anticipated discharge: once bed available at rehab Anticipated discharge place: Anticipate will need rehab A total of 35 minutes was spent on the care of this complex patient more than 50% of the time was spent in counseling and care coordination. Active Medications Generic Name Dose Route Start Last Admin Trade Name Freq PRN Reason Stop Dose Admin Aspirin 81 mg 05/25/21 09:00 05/26/21 09:03 Aspirin 81 Mg PO 81 mg DAILY [facility] Administration Atorvastatin Calcium 40 mg 05/24/21 09:00 05/26/21 09:04 Atorvastatin 40 Mg Tab PO 40 mg DAILY [facility] Administration Clonidine 0.2 mg 05/24/21 00:35 Clonidine Hcl 0.2 Mg Tab PO TID PRN Blood Pressure - High Clopidogrel Bisulfate 75 mg 05/25/21 09:00 05/26/21 09:03 Clopidogrel 75 Mg Tab PO 75 mg DAILY [facility] Administration Cyanocobalamin 1,000 mcg 05/25/21 14:15 05/26/21 09:04 Cyanocobalamin 1,000 Mcg/Ml 1 Ml Vial IM 05/26/21 17:00 Not Given DAILY [facility] Cyanocobalamin 1,000 mcg 05/27/21 09:00 Cyanocobalamin 500 Mcg Tab PO DAILY [facility] Enoxaparin Sodium 40 mg 05/25/21 09:00 05/26/21 09:19 Enoxaparin 40 Mg/0.4 Ml Syringe SQ Not Given DAILY [facility] Folic Acid 1 mg 05/25/21 14:15 05/26/21 09:04 Folic Acid 1 Mg Tab PO 1 mg DAILY [facility] Administration Gabapentin 100 mg 05/25/21 21:00 05/26/21 09:09 Gabapentin 100 Mg Cap PO 100 mg BID [facility] Administration Sodium Chloride 1,000 mls @ 75 mls/hr 05/23/21 19:00 05/26/21 01:12 Saline 0.9% IV Not Given .[id number] [facility] Linagliptin 5 mg 05/26/21 09:00 05/26/21 09:04 Linagliptin 5 Mg Tablet PO 5 mg DAILY [facility] Administration Lisinopril 20 mg 05/25/21 09:00 05/26/21 09:04 Lisinopril 20 Mg Tab PO 20 mg DAILY [facility] Administration Naloxone HCl 0.2 mg 05/23/21 18:59 Naloxone 0.4 Mg/Ml 1 Ml Vial IV Q2M PRN Opioid Reversal Quetiapine Fumarate 25 mg 05/24/21 21:00 05/25/21 20:41 Quetiapine 25 Mg Tab PO 25 mg HS [facility] Administration Objective - Vital Signs Vital signs: Vital Signs Temp 97.8 F 05/26/21 08:59 Pulse 92 05/26/21 13:24 Resp 18 05/26/21 13:24 BP 121/68 05/26/21 13:24 Pulse Ox 94 L 05/26/21 13:24 Intake & Output 05/25/21 05/26/21 05/26/21 18:59 06:59 18:59 Other: Voiding Method Incontinent Incontinent # Voids 1 2 - Labs CBC & Chem 7: 05/24/21 08:12 05/24/21 08:12
[2021-05-26] MEDS: QUEtiapine 25 MG TAB PO SCH (20:56)
[2021-05-27] MEDS ORDERED: CYANOCOBALAMIN 500 MCG TAB PO SCH (09:00)
[2021-05-27 09:30] VITALS: RESP 20
[2021-05-27] MEDS: ENOXAPARIN 40 MG/0.4 ML SYRINGE SQ SCH (09:30)
[2021-05-27 09:31] LABS: Potassium 4.3 mmol/L (3.5-5.1)
[2021-05-27] MEDS: ASPIRIN 81 MG PO SCH (09:31)
[2021-05-27] MEDS: LINAGLIPTIN 5 MG TABLET PO SCH (09:31)
[2021-05-27] MEDS: lisinopriL 20 MG TAB PO SCH (09:31)
[2021-05-27] MEDS: FOLIC ACID 1 MG TAB PO SCH (09:31)
[2021-05-27] MEDS: GABAPENTIN 100 MG CAP PO SCH (09:31)
[2021-05-27] MEDS: CLOPIDOGREL 75 MG TAB PO SCH (09:31)
[2021-05-27] MEDS: ATORVASTATIN 40 MG TAB PO SCH (09:31)
[2021-05-27 13:01] VITALS: BP 164/95; PULSE 70; TEMP 98
--- NOTE | 2021-05-27 14:10 | P.DS ---
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 In the ER he underwent an extensive evaluation. CT head was obtained which showed bilateral lacunar infarcts. He was found to be hypertensive with blood pressure of 204/110 on arrival. Laboratory analysis is unremarkable. He was admitted for possible stroke. He was seen by neurology who ordered an MRI, EEG. MRI brain demonstrated acute or subacute infarct in the right internal capsule, carotid Dopplers are less than 50% stenosis bilateral. Echocardiogram demonstrated an ejection fraction of 55%, telemetry without any signs of atrial fibrillation. LDL was 132. A1C 6.5 consistent with pre-diabetes. He was having significant speech and cognitive dysfunction and requires rehab placement. Patient seen and examined at bedside. He is agreeable to go to rehab, he has no complaints currently. no nausea no vomiting. Vital signs reviewed and stable. General: non toxic, no distress, appears at stated age Derm: warm, dry Head: atraumatic, normocephalic, symmetric Eyes: EOMI, no lid lag, anicteric sclera Mouth: no lip lesion, mucus membranes moist Cardiovascular: S1S2 reg, no murmur, positive posterior tibial pulse bilateral, Lungs: CTA bilateral, no rhonchi, no rales , no accessory muscle use Abdominal: soft, nontender to palpation, no guarding, no appreciable organomegaly Ext: no gross muscle atrophy, no edema, no contractures Neuro: stuttering, EOMI, PERRL, no focal neuro deficits Psych: Alert, oriented to self and place, appropriate affect A total of 42 minutes of time were spent preparing this complex discharge summary . Plan - Discharge Summary New Discharge Prescriptions: New Folic Acid 1 mg PO DAILY tab Gabapentin [Neurontin] 100 mg PO BID #60 cap Linagliptin [Tradjenta] 5 mg PO DAILY tablet lisinopriL [Zestril] 20 mg PO DAILY tab Aspirin 81 mg PO DAILY Atorvastatin [Lipitor] 40 mg PO DAILY tab Clopidogrel [Plavix] 75 mg PO DAILY #0 tab QUEtiapine [SEROquel] 25 mg PO HS #0 tab Discharge Medication List Aspirin 81 mg PO DAILY 05/27/21 [Rx] Atorvastatin [Lipitor] 40 mg PO DAILY tab 05/27/21 [Rx] Clopidogrel [Plavix] 75 mg PO DAILY #0 tab 05/27/21 [Rx] Folic Acid 1 mg PO DAILY tab 05/27/21 [Rx] Gabapentin [Neurontin] 100 mg PO BID #60 cap 05/27/21 [Rx] Linagliptin [Tradjenta] 5 mg PO DAILY tablet 05/27/21 [Rx] QUEtiapine [SEROquel] 25 mg PO HS #0 tab 05/27/21 [Rx] lisinopriL [Zestril] 20 mg PO DAILY tab 05/27/21 [Rx] Follow up Appointment(s)/Referral(s): None,Stated [Primary Care Provider] - 1-2 days Activity/Diet/Wound Care/Special Instructions: Activity: as tolerated Diet: heart healthy Special Instructions: take AM blood sugar daily
== END 2021-05-27 15:41 | DRG 65 ==
LOC: EC 15:50 → 3SCARD 18:59
PROVIDERS: ADMIT Internal Medicine; ATTEND Internal Medicine
DX: I63.9 Cerebral infarction, unspecified (principal); G93.40 Encephalopathy, unspecified; E11.9 Type 2 diabetes mellitus without complications; E78.5 Hyperlipidemia, unspecified; H91.93 Unspecified hearing loss, bilateral; I10 Essential (primary) hypertension; I16.0 Hypertensive urgency; I65.23 Occlusion and stenosis of bilateral carotid arteries; Z20.822 Contact with and (suspected) exposure to COVID-19; R47.01 Aphasia; Z79.02 Long term (current) use of antithrombotics/antiplatelets; Z79.82 Long term (current) use of aspirin; Z79.84 Long term (current) use of oral hypoglycemic drugs; Z79.899 Other long term (current) drug therapy; Z86.73 Personal history of transient ischemic attack (TIA), and cerebral infarction without residual deficits; Z91.19 Patient's noncompliance with other medical treatment and regimen
CPT/HCPCS: 36415; 70450; 70553; 71046; 80048; 80053; 80061; 80306; 81003; 82140; 82607; 82746; 83036; 84443; 84484; 85025; 85610; 85730; 87635; 93005; 93306; 93880; 99285

== ENCOUNTER 2021-07-01 09:49 | Inpatient (IN) | payer MEDICARE ==
[2021-07-01] MEDS ORDERED: SODIUM CHLORIDE 0.9% 500 ML 500 ML IV STA (09:52)
[2021-07-01 09:58] LABS: Glucose,Whole Blood 147 mg/dL (75-99)
--- NOTE | 2021-07-01 10:38 | CT ---
EXAMINATION TYPE: CT brain wo con for TPA DATE OF EXAM: 07/01/2021 COMPARISON: CT dated 05/23/2021 and MRI dated 05/24/2021 HISTORY: Stroke, altered mental status CT DLP: 1183.8 mGycm Automated exposure control for dose reduction was used. TECHNIQUE: CT scan of the brain is performed without IV contrast administration. FINDINGS: Generalized brain volume loss changes, likely age-related. Bilateral cerebral white matter hypodensit ies, likely representing chronic microvascular ischemic changes. Tiny chronic infarct is seen in the right cerebellar hemisphere with another infarct in the right basal ganglia region. Chronic small lac unar infarct in the posterior limb of the left internal capsule as well as in the left side of the po ns. No acute intracranial hemorrhage or gross acute cortical infarct. No midline shift or herniation. Unr emarkable basal cisterns, sella and CP angles. No gross space-occupying lesion, vasogenic edema or ma ss effect. 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 Unremarkable orbits otherwise. Bilateral maxillary sinus polyps/retention cysts. Clear mastoid air cells. Unremarkable calvarial bones. IMPRESSION: Brain volume loss changes, chronic ischemic changes and scattered chronic infarcts as described above . No acute intracranial hemorrhage or gross acute cortical infarct however a small acute or hyperacut e infarct cannot be excluded.
[2021-07-01] MEDS ORDERED: hydrALAZINE HCL 20 MG/ML 1 ML VIAL IVP STA (10:44)
[2021-07-01 10:48] LABS: INR 0.9 (<1.2); Partial Thromboplastin Time 22.5 sec (22.0-30.0); Prothrombin Time 9.7 sec (9.0-12.0)
[2021-07-01 10:49] LABS: Albumin 3.7 g/dL (3.5-5.0); Calcium 8.8 mg/dL (8.4-10.2); Potassium 4.1 mmol/L (3.5-5.1); Total Bilirubin 0.5 mg/dL (0.2-1.3); Total Protein 6.5 g/dL (6.3-8.2)
[2021-07-01 11:04] LABS: HCT 41.8 % (39.0-53.0); HGB 14.3 gm/dL (13.0-17.5); MCH 31.4 pg (25.0-35.0); MCHC 34.2 g/dL (31.0-37.0); MCV 91.9 fL (80.0-100.0); Mean Platelet Volume 7.3; Platelet Count 216 k/uL (150-450); RBC 4.55 m/uL (4.30-5.90); RDW 12.7 % (11.5-15.5); WBC 9.1 k/uL (3.8-10.6)
--- NOTE | 2021-07-01 11:10 | CT ---
EXAMINATION TYPE: CT angio head neck DATE OF EXAM: 07/01/2021 HISTORY: Neuro deficit COMPARISON: CT brain same date MRI 05/24/2021 CT DLP: 466.5 mGycm. Automated Exposure Control for Dose Reduction was Utilized. TECHNIQUE: CTA scan of the neck is performed with IV Contrast, patient injected with 65 mL of Isovue 370, axial images are obtained, coronal and sagittal reformatted images are reviewed. 3D reconstruct ed images are created on an independent workstation and reviewed. FINDINGS: Carotid/Vascular Structures: The transverse aorta, 3 super aortic branch vessels are patent, left and right subclavian arteries, innominate artery, common carotid artery show no significant stenosis, th ere are atheromatous changes. The common carotid, internal and external carotid arteries are patent. Vertebral arteries are patent, left vertebral artery is dominant. There is no evident dissection, ane urysm, or embolus. No significant stenosis of the proximal internal carotid arteries. Anterior and posterior circulation are patent within the brain. No evident aneurysm, stenosis, dissec tion, or embolus. Other: Degenerative disc changes are present in the visualized spine. Multilevel foraminal encroachme nt is present. Possible mucus retention cyst or polyp present within the maxillary sinuses. IMPRESSION: No significant abnormality is seen. Consider MRI follow-up. NASCET criteria was used in interpretation of this exam?
--- NOTE | 2021-07-01 11:14 | ED ---
General Adult HPI - General Chief complaint: Altered Mental Status Stated complaint: Stroke Time Seen by Provider: 07/01/21 09:49 Source: patient, EMS, RN notes reviewed, old records reviewed Mode of arrival: EMS Limitations: altered mental status - History of Present Illness Initial comments: This is an 81-year-old male who came in his constitution party one stroke patient according to the staff there he normally has some slurred speech for previous stroke which occurred about a month ago but this morning his speech was much worse and he had left-sided weakness. According to EMS as left-sided weakness had resolved and he continued have some slurred speech versus some word salad. A code alteplase was called prior to patient's arrival on arrival I assessed the patient his speech was clear and he was not a candidate for TPA because of the recent previous stroke as well as the fact that we can find no new deficit. Patient is a very poor historian but he was able to move all 4 extremities with equal strength and was able to count to 5 clearly. - Related Data Home Medications Medication Instructions Recorded Confirmed Atorvastatin Calcium [Lipitor] 40 mg PO HS 07/01/21 07/01/21 Clopidogrel [Plavix] 75 mg PO DAILY@0800 07/01/21 07/01/21 Folic Acid 1 mg PO DAILY@0800 07/01/21 07/01/21 Healthshake 1 dose PO TID-W/MEALS 07/01/21 07/01/21 Linagliptin [Tradjenta] 5 mg PO DAILY@0800 07/01/21 07/01/21 QUEtiapine [SEROquel] 100 mg PO HS 07/01/21 07/01/21 Previous Rx's Medication Instructions Recorded Aspirin 81 mg PO DAILY 05/27/21 Gabapentin [Neurontin] 100 mg PO BID #60 cap 05/27/21 lisinopriL [Zestril] 20 mg PO DAILY tab 05/27/21 Allergies Allergy/AdvReac Type Severity Reaction Status Date / Time No Known Allergies Allergy Verified 07/01/21 10:35 Review of Systems ROS Statement: Those systems with pertinent positive or pertinent negative responses have been documented in the HPI. ROS Other: All systems not noted in ROS Statement are negative. Past Medical History Past Medical History: No Reported History Additional Past Medical History / Comment(s): Per sister, denies any medial di agnosis History of Any Multi-Drug Resistant Organisms: Unobtainable Past Surgical History: No Surgical Hx Reported Additional Past Surgical History / Comment(s): Per sister, no surgical interventions, patient did have eye injury at 9 years old with branch from tree Past Anesthesia/Blood Transfusion Reactions: No Reported Reaction Past Psychological History: No Psychological Hx Reported Smoking Status: Never smoker Past Alcohol Use History: None Reported Past Drug Use History: None Reported - Past Family History family Family Medical History: Cancer Additional Family Medical History / Comment(s): Father of lung cancer. Mother had Breast Cancer. Brother of pancreatic cancer. brother of colon cancer. Was the forth child out of sever, oldest living ouf of siblings General Exam - General Exam Comments Initial Comments: GENERAL: Patient is well-developed and well-nourished. Patient is nontoxic and well- hydrated and is in no acute distress. ENT: Neck is soft and supple. No significant lymphadenopathy is noted. Oropharynx is clear. Moist mucous membranes. Neck has full range of motion without eliciting any pain. EYES: The sclera were anicteric and conjunctiva were pink and moist. Extraocular movements were intact and pupils were equal round and reactive to light. Eyelids were unremarkable. PULMONARY: Unlabored respirations. Good breath sounds bilaterally. No audible rales rhonchi or wheezing was noted. CARDIOVASCULAR: There is a regular rate and rhythm without any murmurs gallops or rubs. Femoral pulses are equal bilaterally ABDOMEN: Soft and nontender with normal bowel sounds. No palpable organomegaly was noted. There is no palpable pulsatile mass. SKIN: Skin is clear with no lesions or rashes and otherwise unremarkable. NEUROLOGIC: Patient is alert and oriented 1. Cranial nerves II through XII are grossly intact. Motor and sensory are also intact. Normal speech, volume and content. Symmetrical smile. MUSCULOSKELETAL: Normal extremities with adequate strength and full range of motion. LYMPHATICS: No significant lymphadenopathy is noted PSYCHIATRIC: Unable to assess Limitations: altered mental status Course Vital Signs 07/01/21 07/01/21 07/01/21 09:51 10:05 10:20 Temperature 97.0 F L 98.5 F 98.5 F Pulse Rate 88 87 85 Respiratory 18 18 18 Rate Blood Pressure 225/112 207/109 190/76 O2 Sat by Pulse 95 98 98 Oximetry 07/01/21 07/01/21 07/01/21 10:35 10:45 10:50 Temperature 98.5 F 98.5 F Pulse Rate 89 85 92 Respiratory 18 18 18 Rate Blood Pressure 170/96 220/170 181/97 O2 Sat by Pulse 97 96 95 Oximetry 07/01/21 07/01/21 11:05 12:03 Temperature 98.4 F Pulse Rate 97 106 H Respiratory 18 18 Rate Blood Pressure 140/65 167/78 O2 Sat by Pulse 97 97 Oximetry Medical Decision Making - Medical Decision Making EKG shows sinus rhythm at 91 bpm RI interval is 183 QRS is 1:30 for QT interval 375 QTC is 424 per patient's EKG shows no ST segment elevation or depression. CT of the brain showed no acute abnormality. CT angiogram of the head and neck show no acute abnormalities. Patient did not have any deficit while in the emergency department. I spoke with Dr. Vivas he agreed to admit the patient admitted the patient I consult the neurology. - Lab Data Result diagrams: 07/01/21 10:28 Lab Results 07/01/21 07/01/21 07/01/21 Range/Units 09:54 10:28 10:28 Neutrophils % (Manual) 86 % Lymphocytes % (Manual) 10 % Monocytes % (Manual) 3 % Eosinophils % (Manual) 1 % Nucleated RBCs 0 (0-0) /100 WBC Manual Slide Review Performed PT 9.7 (9.0-12.0) sec INR 0.9 (<1.2) APTT 22.5 (22.0-30.0) sec Sodium (137-145) mmol/L Potassium (3.5-5.1) mmol/L Chloride (98-107) mmol/L Carbon Dioxide (22-30) mmol/L Anion Gap mmol/L BUN (9-20) mg/dL Creatinine (0.66-1.25) mg/dL Est GFR (CKD-EPI)AfAm (>60 ml/min/1.73 sqM) Est GFR (CKD-EPI)NonAf (>60 ml/min/1.73 sqM) Glucose (74-99) mg/dL POC Glucose (mg/dL) 147 H (75-99) mg/dL POC Glu [employer] Aylin Theodore Calcium (8.4-10.2) mg/dL Total Bilirubin (0.2-1.3) mg/dL AST (17-59) U/L ALT (4-49) U/L Alkaline Phosphatase (38-126) U/L Troponin I (0.000-0.034) ng/mL Total Protein (6.3-8.2) g/dL Albumin (3.5-5.0) g/dL Urine Color Urine Appearance (Clear) Urine pH (5.0-8.0) Ur Specific [place] (1.001-1.035) Urine Protein (Negative) Urine Glucose (UA) (Negative) Urine Ketones (Negative) Urine Blood (Negative) Urine Nitrite (Negative) Urine Bilirubin (Negative) Urine Urobilinogen (<2.0) mg/dL Ur Leukocyte Esterase (Negative) 07/01/21 07/01/21 07/01/21 Range/Units 10:28 10:28 11:58 Neutrophils % (Manual) % Lymphocytes % (Manual) % Monocytes % (Manual) % Eosinophils % (Manual) % Nucleated RBCs (0-0) /100 WBC Manual Slide Review PT (9.0-12.0) sec INR (<1.2) APTT (22.0-30.0) sec Sodium 140 (137-145) mmol/L Potassium 4.1 (3.5-5.1) mmol/L Chloride 105 (98-107) mmol/L Carbon Dioxide 27 (22-30) mmol/L Anion Gap 8 mmol/L BUN 18 (9-20) mg/dL Creatinine 1.06 (0.66-1.25) mg/dL Est GFR (CKD-EPI)AfAm 76 (>60 ml/min/1.73 sqM) Est GFR (CKD-EPI)NonAf 66 (>60 ml/min/1.73 sqM) Glucose 110 H (74-99) mg/dL POC Glucose (mg/dL) (75-99) mg/dL POC Glu Tower Excavator Operator ID Calcium 8.8 (8.4-10.2) mg/dL Total Bilirubin 0.5 (0.2-1.3) mg/dL AST 18 (17-59) U/L ALT 11 (4-49) U/L Alkaline Phosphatase 66 (38-126) U/L Troponin I <0.012 (0.000-0.034) ng/mL Total Protein 6.5 (6.3-8.2) g/dL Albumin 3.7 (3.5-5.0) g/dL Urine Color Light Yellow Urine Appearance Clear (Clear) Urine pH 6.5 (5.0-8.0) Ur Specific [place] 1.010 (1.001-1.035) Urine Protein Negative (Negative) Urine Glucose (UA) Negative (Negative) Urine Ketones Negative (Negative) Urine Blood Negative (Negative) Urine Nitrite Negative (Negative) Urine Bilirubin Negative (Negative) Urine Urobilinogen <2.0 (<2.0) mg/dL Ur Leukocyte Esterase Negative (Negative) Disposition Clinical Impression: TIA (transient ischemic attack) Disposition: ADMITTED IP TO THIS HOSP Referrals: Michael Diego DO [Primary Care Provider] - 1-2 days Time of Disposition: 13:13
[2021-07-01 11:51] LABS: Neutrophils % (M) 86 %; Nucleated Red Blood Cells 0 /100 WBC (0-0); Total Cells Counted 100
--- NOTE | 2021-07-01 11:59 | XR ---
EXAMINATION TYPE: XR chest 2V DATE OF EXAM: 07/01/2021 COMPARISON: Chest x-ray May 23, 2021 HISTORY: AMS and confusion. TECHNIQUE: Frontal and lateral views of the chest are obtained. FINDINGS: Low lung volumes and scattered chronic parenchymal changes redemonstrated. There is no new suspicious focal air space opacity, pleural effusion, or pneumothorax seen. The cardiac silhouette size remains within normal limits. The osseous structures are intact. IMPRESSION: Chronic changes without new acute pulmonary process.
[2021-07-01 12:13] LABS: Appearance,Urine Clear (Clear); Bilirubin,Urine Negative (Negative); Blood,Urine Negative (Negative); Color,Urine Light Yellow; Glucose,Urine (UA) Negative (Negative); Ketones,Urine Negative (Negative); Leukocyte Esterase,Urine Negative (Negative); Nitrite,Urine Negative (Negative); PH, Urine 6.5 (5.0-8.0); Protein,Urine Negative (Negative); Urobilinogen,Urine <2.0 mg/dL (<2.0)
[2021-07-01] MEDS ORDERED: CALCIUM CARBONATE 500 MG CHEWABLE PO PRN (13:26)
[2021-07-01] MEDS ORDERED: ONDANSETRON 4 MG/2 ML VIAL IVP PRN (13:26)
[2021-07-01] MEDS ORDERED: NALOXONE 0.4 MG/ML 1 ML VIAL IV PRN (13:26)
[2021-07-01] MEDS ORDERED: LACTULOSE 20 GM/30 ML CUP PO PRN (13:26)
[2021-07-01] MEDS ORDERED: ACETAMINOPHEN TAB 325 MG TAB PO PRN (13:26)
[2021-07-01] MEDS ORDERED: MELATONIN 3 MG TABLET PO PRN (13:26)
--- NOTE | 2021-07-01 14:59 | P.HPIM ---
History of Present Illness H&P Date: 07/01/21 Chief Complaint: Left-sided weakness This is a 81-year-old patient who follows with Dr. Diego. As per the ER physician patient is brought in for a stroke and the staff and reported that patient had had some slurred speech and a baseline from previous stroke which happened about a month ago this morning patient became much worse and had left- sided weakness. Then per the EMS the left-sided weakness had resolved but continued to have some slurred speech. Some word salad. When the patient arrived to speech was more clear and is felt not to be candidate for TPA. In t he ER physician could not find a new deficit. Patient not a very good historian. Does not complain of any vision changes or headache. Moving all his for his limbs. Patient was discharged on May 27 being here for about 4 days with a subacute infarct in the right internal Serial with resultant speech delay and cognitive reasoning deficit, hypertensive urgency. Chronic stable medical conditions include or basal ganglia, hearing difficulties, diabetes mellitus type 2, hyperlipidemia. Patient was discharged to rehab. EMS notes additionally stated: Patient's friend stated that patient showed up to his house confused and appeared that he was unit due to dizziness bands. As per the friend he was not making much sense not acting like his baseline. Patient normally lives alone and is usually able to care for himself. EMS stroke assessment was negative. Patient was initially uncooperative about coming to the hospital. His initial blood pressure recorded was over 200 systolic Review of systems:: Difficult obtained because of patient's speech GEN.: None EYES: None HEENT: Decreased hearing NECK: None RESPIRATORY: None CARDIOVASCULAR: None GASTROINTESTINAL: None GENITOURINARY: None MUSCULOSKELETAL: None LYMPHATICS: None HEMATOLOGICAL: None PSYCHIATRY: Bit confused NEUROLOGICAL: As above Past medical history to include: Right internal capsule infarct causing speech delay and cognitive impairment in May 2021, old basal ganglia ischemic stroke, hearing difficulties, hyper tensive, diabetes type 2, hyperlipidemia Social history: Lives alone. Nonsmoking. No alcohol. Family history: Lung cancer, breast cancer, pancreatic cancer, colon cancer Physical examination: VITAL SIGNS: 98.4, 97, 18, 140/65, 97% room air. Blood pressure presentation was 225/112] GENERAL: BMI 25.3, laying in bed, anxious, moving all limbs. EYES: Pupils equal. Conjunctiva normal. HEENT: External appearance of nose and ears normal, oral cavity grossly normal. NECK: JVD not raised; masses not palpable. HEART: First and second heart sounds are normal; no edema. LUNGS: Respiratory rate normal; clear to auscultation. ABDOMEN: Soft, nontender, liver spleen not palpable, no masses palpable. PSYCH: Difficult to assess, anxiousl. MUSCULOSKELETAL:No Clubbing/cyanosis;muscles-grossly intact NEUROLOGICAL: [Cranial nerves grossly intact; no facial asymmetry, patient is moving all 4 limbs.. Speech sometimes doesn't make sense, slow LYMPHATICS: No lymph nodes palpable in neck and axilla INVESTIGATIONS, reviewed in the clinical context: White count 9.1 hemoglobin 14.3 platelets 216 sodium 140 potassium 4.1 creatinine 1.06 Troponin I less than 0.012 UA: Negative EKG tracing personally reviewed by me: Right bundle-branch block, sinus rhythm Chest x-ray film personally reviewed by me-possible chronic changes CT angiogram head and neck: JVD T changes. Nothing acute CT brain without contrast for TPA: Pain volume loss changes, chronic ischemic changes and scattered chronic infarct. Lacunar infarct cannot be ruled out. Assessment and plan: -Possible acute lacunar infarct/stroke versus TIA, in a patient with a stroke just over a month ago Consults neurology. Not a candidate for TPA symptoms improved in the ER. Continue aspirin and Plavix. Lipitor 40 mg daily at bedtime -Essential hypertension with emergency Given blood in 24 hours blood pressures being washed. Repeat blood pressure is coming down. Continue with Zestril 20 mg a day -Hyperlipidemia Lipitor 40 mg daily at bedtime -Diabetes mellitus type 2 trajenta 5 mg daily. Follow Accu-Cheks with sliding scale. 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 Resume home medications. Neuro checks. Consult neurology. Patient has rather extensive neurological workup on the recent admission. We'll probably, need a MRI Consult speech therapy, PT OT. Past Medical History Past Medical History: No Reported History Additional Past Medical History / Comment(s): Per sister, denies any medial diagnosis History of Any Multi-Drug Resistant Organisms: Unobtainable Past Surgical History: No Surgical Hx Reported Additional Past Surgical History / Comment(s): Per sister, no surgical interventions, patient did have eye injury at 9 years old with branch from tree Past Anesthesia/Blood Transfusion Reactions: No Reported Reaction Past Psychological History: No Psychological Hx Reported Smoking Status: Never smoker Past Alcohol Use History: None Reported Past Drug Use History: None Reported - Past Family History family Family Medical History: Cancer Additional Family Medical History / Comment(s): Father of lung cancer. Mother had Breast Cancer. Brother of pancreatic cancer. brother of colon cancer. Was the forth child out of sever, oldest living ouf of siblings Medications and Allergies Home Medications Medication Instructions Recorded Confirmed Type Aspirin 81 mg PO DAILY 05/27/21 07/01/21 Rx Gabapentin [Neurontin] 100 mg PO BID #60 cap 05/27/21 07/01/21 Rx lisinopriL [Zestril] 20 mg PO DAILY tab 05/27/21 07/01/21 Rx Atorvastatin Calcium [Lipitor] 40 mg PO HS 07/01/21 07/01/21 History Clopidogrel [Plavix] 75 mg PO DAILY@0800 07/01/21 07/01/21 History Folic Acid 1 mg PO DAILY@0800 07/01/21 07/01/21 History Healthshake 1 dose PO TID-W/MEALS 07/01/21 07/01/21 History Linagliptin [Tradjenta] 5 mg PO DAILY@0800 07/01/21 07/01/21 History QUEtiapine [SEROquel] 100 mg PO HS 07/01/21 07/01/21 History Allergies Allergy/AdvReac Type Severity Reaction Status Date / Time No Known Allergies Allergy Verified 07/01/21 10:35 Physical Exam Vitals: Vital Signs Temp Pulse Resp BP Pulse Ox 07/01/21 12:03 106 H 18 167/78 97 07/01/21 11:05 98.4 F 97 18 140/65 97 07/01/21 10:50 98.5 F 92 18 181/97 95 07/01/21 10:45 85 18 220/170 96 07/01/21 10:35 98.5 F 89 18 170/96 97 07/01/21 10:20 98.5 F 85 18 190/76 98 07/01/21 10:05 98.5 F 87 18 207/109 98 07/01/21 09:51 97.0 F L 88 18 225/112 95 Intake and Output 06/30/21 07/01/21 07/01/21 22:59 06:59 14:59 Other: Weight 77.8 kg Results CBC & Chem 7: 07/01/21 10:28 07/01/21 10:28 Labs: Abnormal Lab Results - Last 24 Hours (Table) 07/01/21 07/01/21 Range/Units 09:54 10:28 Glucose 110 H (74-99) mg/dL POC Glucose (mg/dL) 147 H (75-99) mg/dL
--- NOTE | 2021-07-01 16:27 | P.CNNES ---
History of Present Illness Consult date: 07/01/21 Requesting physician: Fred Hutton Reason for Consult: tia History of Present Illness: This is an 82-year-old gentleman with history of multiple strokes (most recent 05/2021), diabetes mellitus, Low normal vitamin B12, very hard of hearing who presented emergency department on 07/01/2021 via EMS for worsening of slurred speech and left-sided weakness. Some of the history is obtained from medical record and patient nurse. Per nurse patient is residing at [facility] and it seems the that the patient was noted to have a worsening of her slurred speech and left-sided weakness and that ED team felt that left-sided weakness resolved but is to continue to have the slurred speech versus "word salad". But upon presenting to the ED the speech was clear and initially the a code stroke was activated then the was decided that he is not a TPA candidate since was felt his speech was clear and he was speaking normally and moving all extremities equally. Per the ED nurse she felt his speech is slurred and continue to not make sense to her. Upon seeing the patient he could not tell me what transpired and he was not making sense. Unknown exact last normal. Patient is on home medication of aspirin 81 mg, Plavix 75 mg and Lipitor 40 mg. Other oral medication consists of gabapentin 100 mg 1 tablet twice a day, lis inopril, Seroquel 100 mg daily at bedtime, folic acid. Of note I personally saw the patient last on 05/25/2021 and during the admission the patient had acute to subacute ischemic stroke and is reported as right basal ganglia by felt was more rousseau radiata. Patient on physical exam patient had mild expressive aphasia and dysarthria and etiology for his stroke seems small vessel. During that admission he did not receive IV TPA. He has a history of old bilateral basal ganglia ischemic stroke and again is due to small vessel disease. His hemoglobin A1c was 6.5 and the vitamin B12 was 275. During that admission patient was started on aspirin 81 Plavix 75 which was new during the hospital stay and was recommended for the patient to be on dual antiplatelets for 21 days then stop Plavix after that. And to continue Lipitor 40 mg daily. During that admission. Patient had a stroke workup and had the carotid duplex which was less than 50% stenosis. MRI of the brain as stated above the revealed the stroke. Please refer to my note for further details. Some of the workup in the hospital consisted of: Initial vital signs his blood pressure of 225/112, heart rate of 88, respiratory of 18, temperature of 98.0 Fahrenheit oral and pulse ox of 95% room air. Patient's blood pressure has been uncontrolled and has been in the range of 200 to 220s. Most recent blood pressure is a 160/78. CBC differential is unremarkable Chemistry panel is unremarkable. PT, PTT and INR is within normal limits Urine analysis negative for urinary tract infection CT of the head is reported as brain volume loss changes, chronic ischemic changes and scattered chronic infarct described above. No acute intracranial hemorrhage or gross acute cortical infarct however a small acute or hyperacute infarct not be excluded. CT angiography of the head and neck was reported as no significant abnormality seen. Consider MRI follow-up. Review of Systems Review of system: The 12 point system was reviewed and apparent positive and negative per HPI. Past Medical History Past Medical History: No Reported History Additional Past Medical History / Comment(s): Per sister, denies any medial diagnosis History of Any Multi-Drug Resistant Organisms: Unobtainable Past Surgical History: No Surgical Hx Reported Additional Past Surgical History / Comment(s): Per sister, no surgical interventions, patient did have eye injury at 9 years old with branch from tree Past Anesthesia/Blood Transfusion Reactions: No Reported Reaction Past Psychological History: No Psychological Hx Reported Smoking Status: Never smoker Past Alcohol Use History: None Reported Past Drug Use History: None Reported - Past Family History family Family Medical History: Cancer Additional Family Medical History / Comment(s): Father of lung cancer. Mother had Breast Cancer. Brother of pancreatic cancer. brother of colon cancer. Was the forth child out of sever, oldest living ouf of siblings Medications and Allergies Home Medications Medication Instructions Recorded Confirmed Type Aspirin 81 mg PO DAILY 05/27/21 07/01/21 Rx Gabapentin [Neurontin] 100 mg PO BID #60 cap 05/27/21 07/01/21 Rx lisinopriL [Zestril] 20 mg PO DAILY tab 05/27/21 07/01/21 Rx Atorvastatin Calcium [Lipitor] 40 mg PO HS 07/01/21 07/01/21 History Clopidogrel [Plavix] 75 mg PO DAILY@0807/01/21 07/01/21 History Folic Acid 1 mg PO DAILY@0800 07/01/21 07/01/21 History Healthshake 1 dose PO TID-W/MEALS 07/01/21 07/01/21 History Linagliptin [Tradjenta] 5 mg PO DAILY@0800 07/01/21 07/01/21 History QUEtiapine [SEROquel] 100 mg PO HS 07/01/21 07/01/21 History Allergies Allergy/AdvReac Type Severity Reaction Status Date / Time No Known Allergies Allergy Verified 07/01/21 10:35 Physical Examination - Vital Signs Vital Signs: Vital Signs Temp Pulse Resp BP Pulse Ox 07/01/21 12:03 106 H 18 167/78 97 07/01/21 11:05 98.4 F 97 18 140/65 97 07/01/21 10:50 98.5 F 92 18 181/97 95 07/01/21 10:45 85 18 220/170 96 07/01/21 10:35 98.5 F 89 18 170/96 97 07/01/21 10:20 98.5 F 85 18 190/76 98 07/01/21 10:05 98.5 F 87 18 207/109 98 07/01/21 09:51 97.0 F L 88 18 225/112 95 Intake and Output 06/30/21 07/01/21 07/01/21 22:59 06:59 14:59 Other: Weight 77.8 kg GENERAL: The patient is lying in bed and does not seem in acute distress. CHEST: The heart rate is regular rate rhythm. No murmurs to auscultation. No carotid bruit bilaterally. LUNG: Clear to auscultation bilaterally no wheezing noted throughout. Not labored breathing. ABDOMEN/GI: Bowel sounds present in all 4 quadrants. No tenderness to palpation throughout. NEUROLOGICAL: Limited because of cooperation. Higher mental function: The patient is awake, alert, oriented to self. He could not tell me place or time. Patient is following few simple commands. He speech is noncoherent for the most part and appears he is aphasic (at times it appers expressive and sometimes mixed). Cranial nerves: The pupils are round, equal and reactive to light. Visual farrell are full to confrontation throughout. Extraocular movement is intact no nystagmus is noted. Left nasolabial flattening (left eye opening seems more constricted than right). No dysarthria noted. Tongue is midline and moved [id number] without any difficulty. Motor: The strength is lifting all extremities above gravity and no drift. Could not assess individual muscle strength because of cooperation. Normal tone and bulk. Cerebellum: Normal finger to nose bilaterally. Sensation: Sensation is normal to touch throughout. Reflexes (right/left):1+ throughout Plantars are mute bilaterally. Results - Laboratory Findings CBC and BMP: 07/01/21 10:28 07/01/21 10:28 Abnormal Lab Findings: Abnormal Labs 07/01/21 07/01/21 09:54 10:28 Glucose 110 H POC Glucose (mg/dL) 147 H Assessment and Plan Assessment: * Aphasia and seems confused. (on presentation it is reported by ED has dyarthria and left sided weakness and resolved. But on examination he has aphasia and seems confused). Rule out acute ischemic stroke. Another possibility is hypertensive encephalopathy * Uncontrolled hypertension and on presentation blood pressure is 225/112 * History of stroke last on 2021 (had stroke over left basal ganglia that is reported on MRI but I felt rousseau radiata. He presented with dysarthria and expressive aphasia) * History of bilateral basal ganglia ischemic stroke * Diabetes mellitus with recent hemoglobin A1c 6.5 * Low vitamin B12 of 275 * Very hard of hearing Plan: Patient was restarted on his home dose of aspirin 81mg daily and Plavix 75mg daily. Continue Lipitor 40 mg daily at bedtime. Ordered repeat MRI of the brain. Lipid panel is ordered as pending Patient had a recent 2-D echo on 05/2021. If the patient does has a new stroke on MRI I'll get a repeated limited 2-D echo Continue neuro checks Placed on cardiac monitoring PT, OT and DISTRICT RESOURCE OFFICER is consulted We'll defer the blood pressure management to the primary team. Please avoid aggressive blood pressure management. Started the patient on Vitamin B12 1000mcg daily. We'll defer the rest of medical management to the primary team The plan was discussed with the patient's nurse. Thank you consultation Fredo Mcfadden M.D. Neuro-hospitalist Time with Patient: Greater than 30
[2021-07-01] MEDS: INSULIN ASPART (NovoLOG) 100 UNIT/ML VIAL SQ SCH ×2 (20:33→21:33)
[2021-07-01 21:31] LABS: Glucose,Whole Blood 135 mg/dL (75-99)
[2021-07-01] MEDS: QUEtiapine 100 MG TAB PO SCH (22:27)
[2021-07-01] MEDS: GABAPENTIN 100 MG CAP PO SCH (22:27)
[2021-07-01] MEDS: ATORVASTATIN 40 MG TAB PO SCH (22:27)
[2021-07-02 06:27] LABS: Glucose,Whole Blood 119 mg/dL (75-99)
[2021-07-02] MEDS: INSULIN ASPART (NovoLOG) 100 UNIT/ML VIAL SQ SCH ×4 (06:27→20:22)
[2021-07-02] MEDS: FOLIC ACID 1 MG TAB PO SCH (09:39)
[2021-07-02] MEDS: ASPIRIN 81 MG PO SCH (09:39)
[2021-07-02] MEDS: CLOPIDOGREL 75 MG TAB PO SCH (09:39)
[2021-07-02] MEDS: LINAGLIPTIN 5 MG TABLET PO SCH (09:39)
[2021-07-02] MEDS: GABAPENTIN 100 MG CAP PO SCH ×2 (09:39→20:24)
[2021-07-02] MEDS: lisinopriL 20 MG TAB PO SCH (09:39)
[2021-07-02 10:00] LABS: Chol/HDL Ratio 2.69 Ratio; LDL Cholesterol,Calculated 55.1 mg/dL (0.0-131.0); VLDL Calculation 15.86 mg/dL (5.00-40.00)
[2021-07-02 12:12] LABS: Glucose,Whole Blood 113 mg/dL (75-99)
--- NOTE | 2021-07-02 13:06 | P.PN ---
Subjective Progress Note Date: 07/02/21 I spoke with the patient's nurse's aid and she stated that patient is very confused. Upon seeing the patient he seemed startled and was tell me there was somebody behind knee and even though there is nobody behind me. Objective - Vital Signs Vital signs: Vital Signs Temp 97.8 F 07/02/21 11:59 Pulse 91 07/02/21 11:58 Resp 18 07/02/21 11:59 BP 154/74 07/02/21 11:58 Pulse Ox 96 07/02/21 11:59 Intake & Output 07/01/21 07/02/21 07/02/21 18:59 06:59 18:59 Intake Total 780 Output Total 1293 200 Balance -1293 580 Weight 77.8 kg Intake: Oral 780 Output: Urine 550 200 Uretheral ([place]) 550 Post Void Residual 743 Other: Voiding Method Indwelling Catheter Indwelling Catheter - Exam GENERAL: The patient is lying in bed and does not seem in acute distress but seems anxious. NEUROLOGICAL: Limited because of cooperation. Higher mental function: The patient is awake, alert. Upon asking him his name he stated it was "none of your business". He stated he was at home. He was speaking in tangential and he was telling me somewhat was behind me even though no one was behind me. Cranial nerves: The pupils are round, equal and reactive to light. Visual farrell are full to confrontation throughout. Extraocular movement is intact no nystagmus is noted. ?right nasolabial flattening (left eye opening seems more constricted than right). No dysarthria noted. Motor: The strength is lifting bilateral upper extremities equally but would not cooperate in lifting lowers (upon trying to take cover off to assess lowers he told me "no"). e Cerebellum: Could not assess because of cooperation. Sensation: Could not assess because of cooperation. Reflexes (right/left): Could not assess because of cooperation. Plantars Could not assess because of cooperation. WORK-UP: Lipid panel triglycerides of 79, cholesterol is 113, LDLs 55 and HDL is 42 Urine analysis negative for urinary tract infection CT of the head is reported as brain volume loss changes, chronic ischemic changes and scattered chronic infarct described above. No acute intracranial hemorrhage or gross acute cortical infarct however a small acute or hyperacute infarct not be excluded. CT angiography of the head and neck was reported as no significant abnormality seen. Consider MRI follow-up. Patient had a recent vitamin B12 of 275 on 05/24/2021. Serum folate at that time was 10.5 the. And that hemoglobin A1c was 6.5 also during that visit. - Labs CBC & Chem 7: 07/01/21 10:28 07/01/21 10:28 Labs: Abnormal Lab Results - Last 24 Hours (Table) 07/01/21 07/02/21 07/02/21 Range/Units 21:28 06:26 11:52 POC Glucose (mg/dL) 135 H 119 H 113 H (75-99) mg/dL Assessment and Plan Assessment: * Encephalopathy of unknown etiology (on presentation it is reported by ED has dyarthria and left sided weakness and resolved. But on examination he seems confused and ?aphasia). Rule out acute ischemic stroke. Another possibility is hypertensive encephalopathy * Uncontrolled hypertension and on presentation blood pressure is 225/112 * History of stroke last on 2021 (had stroke over left basal ganglia that is reported on MRI but I felt rousseau radiata. He presented with dysarthria and expressive aphasia) * History of bilateral basal ganglia ischemic stroke * Diabetes mellitus with recent hemoglobin A1c 6.5 * Low vitamin B12 of 275 * Very hard of hearing Plan: Ordered urgent EEG. I will not start the patient on antiepileptic drug unless there is epileptiform discharges or seizure on the EEG. MRI Brain is pending. Continue on his home dose of aspirin 81mg daily and Plavix 75mg daily. Continue Lipitor 40 mg daily at bedtime. Patient had a recent 2-D echo on 05/2021. If the patient does has a new stroke on MRI I'll get a repeated limited 2-D echo Continue neuro checks Placed on cardiac monitoring PT, OT and INSURANCE LEGAL ASSISTANT is consulted We'll defer the blood pressure management to the primary team. Please avoid aggressive blood pressure management. Patient had a recent vitamin B12 of 275 on 05/24/2021. Serum folate at that time was 10.5 the. And that hemoglobin A1c was 6.5 also during that visit. Also had TSH of 2.20. Started the patient on Vitamin B12 1000mcg daily especially with every low normal vitamin B12 on recent prior admission. We'll defer the rest of medical management to the primary team The plan was discussed with the patient's nurse. Fredo Mcfadden M.D. Neuro-hospitalist Time with Patient: Less than 30
--- NOTE | 2021-07-02 15:53 | EEG ---
ELECTROENCEPHALOGRAM REPORT DATE OF SERVICE: 07/02/2021. CLINICAL HISTORY: This is an 81-year-old gentleman with altered mental status. The video EEG is obtained to evaluate for seizure epileptiform activity. RELEVANT MEDICATION: The patient is not on any antiepileptic drugs. EEG TYPE: A routine 21-channel EEG is performed with video using the 10/20 electrode placement system. DESCRIPTION: Wakefulness and drowsiness are obtained. During wakefulness, the posterior- dominant rhythm consists of low to moderate voltage, somewhat well modulated, of 7 hertz activity. There is no physiological stage 2 sleep architecture. There is no focal slowing. Interictal and ictal is none. ACTIVATION PROCEDURE: Photic stimulation and hyperventilation are not performed. CLINICAL INTERPRETATION: This is an abnormal routine EEG. The background slowing is suggestive of mild encephalopathy of unknown etiology. There is no focal slowing, epileptiform discharges or seizure on the EEG. Clinical correlation is recommended. CHON / POORNIMA: [id number] / MTDD
--- NOTE | 2021-07-02 15:57 | MR ---
MR brain without contrast HISTORY: Aphasia, stroke Multiplanar multisequence imaging through the brain Correlation to CT brain dated 07/01/2021 Fast brain protocol utilized due to patient's debility There is cortical atrophy is noted on CT. Restricted diffusion is noted in the left parietal perivent ricular white matter. Corpus callosum shows a focus of low signal on sagittal T1-weighted images, jai ge 10. The pituitary, cervical medullary junction, cerebellopontine angles are within normal limits. There are expected vascular flow voids. There is lacunar infarct in the left amos with corresponding signal change on T1 and inversion recovery sequences, T2-weighted sequence consistent with encephalom alacia, additional foci of encephalomalacia are present within the deep white matter, confluent and s cattered hyperintensities present in the periventricular, pericallosal, subcortical white matter on T 2 and inversion recovery sequences. There is no hemorrhage or hydrocephalus. Cerebellopontine angles are within normal limits. There are expected vascular flow voids. Globes show a somewhat irregular sh ape bilaterally, possible mucus retention cyst or polyps present within the maxillary sinus, inflamma tory change present in the ethmoid air cells IMPRESSION: Subacute or vascular accident as described on chronic small vessel ischemic changes withi n the brain. Age-related atrophy.
[2021-07-02 16:38] LABS: Glucose,Whole Blood 105 mg/dL (75-99)
--- NOTE | 2021-07-02 16:54 | P.PN ---
Progress Note - Text Progress Note Date: 07/02/21 Chief Complaint: Left-sided weakness This is a 81-year-old patient who follows with Dr. Diego. As per the ER physician patient is brought in for a stroke and the staff and reported that patient had had some slurred speech and a baseline from previous stroke which happened about a month ago this morning patient became much worse and had left- sided weakness. Then per the EMS the left-sided weakness had resolved but continued to have some slurred speech. Some word salad. When the patient arrived to speech was more clear and is felt not to be candidate for TPA. In the ER physician could not find a new deficit. Patient not a very good historian. Does not complain of any vision changes or headache. Moving all his for his limbs. Patient was discharged on May 27 being here for about 4 days with a subacute infarct in the right internal Serial with resultant speech delay and cognitive reasoning deficit, hypertensive urgency. Chronic stable medical conditions include or basal ganglia, hearing difficulties, diabetes mellitus type 2, hyperlipidemia. Patient was discharged to rehab. EMS notes additionally stated: Patient's friend stated that patient showed up to his house confused and appeared that he was unit due to dizziness bands. As per the friend he was not making much sense not acting like his baseline. Patient normally lives alone and is usually able to care for himself. EMS stroke assessment was negative. Patient was initially uncooperative about coming to the hospital. His initial blood pressure recorded was over 200 systolic July 2: Patient has a slow speech. No focal weakness. MRI done today shows subacute old vascular accident./Lacunar infarct in the left amos. Also had an EEG done today. Did not show any epileptiform activity. Questionable delirium too.. Active Medications Acetaminophen (Acetaminophen Tab 325 Mg Tab) 650 mg PO Q6HR PRN PRN Reason: Mild Pain or Fever > 100.5 Alprazolam (Alprazolam 0.25 Mg Tab) 0.25 mg PO Q6HR PRN PRN Reason: Anxiety Aspirin (Aspirin 81 Mg) 81 mg PO DAILY [facility] Last Admin: 07/02/21 09:39 Dose: 81 mg Documented by: Atorvastatin Calcium (Atorvastatin 40 Mg Tab) 40 mg PO HS [facility] Last Admin: 07/01/21 22:27 Dose: 40 mg Documented by: Calcium Carbonate/Glycine (Calcium Carbonate 500 Mg Chewable) 1,000 mg PO Q4HR PRN PRN Reason: Dyspepsia Clopidogrel Bisulfate (Clopidogrel 75 Mg Tab) 75 mg PO DAILY@0800 [facility] Last Admin: 07/02/21 09:39 Dose: 75 mg Documented by: Folic Acid (Folic Acid 1 Mg Tab) 1 mg PO DAILY@0800 [facility] Last Admin: 07/02/21 09:39 Dose: 1 mg Documented by: Gabapentin (Gabapentin 100 Mg Cap) 100 mg PO BID [facility] Last Admin: 07/02/21 09:39 Dose: 100 mg Documented by: Insulin Aspart (Insulin Aspart (Novolog) 100 Unit/Ml Vial) 0 unit SQ [facility]; Protocol Last Admin: 07/02/21 11:57 Dose: Not Given Documented by: Lactulose (Lactulose 20 Gm/30 Ml Cup) 20 gm PO DAILY PRN PRN Reason: Constipation Linagliptin (Linagliptin 5 Mg Tablet) 5 mg PO DAILY@0800 [facility] Last Admin: 07/02/21 09:39 Dose: 5 mg Documented by: Lisinopril (Lisinopril 20 Mg Tab) 20 mg PO DAILY [facility] Last Admin: 07/02/21 09:39 Dose: 20 mg Documented by: Melatonin (Melatonin 3 Mg Tablet) 3 mg PO HS PRN PRN Reason: Insomnia Naloxone HCl (Naloxone 0.4 Mg/Ml 1 Ml Vial) 0.2 mg IV Q2M PRN PRN Reason: Opioid Reversal Ondansetron HCl (Ondansetron 4 Mg/2 Ml Vial) 4 mg IVP Q8HR PRN PRN Reason: Nausea And Vomiting Quetiapine Fumarate (Quetiapine 100 Mg Tab) 100 mg PO HS [facility] Last Admin: 07/01/21 22:27 Dose: 100 mg Documented by: Past medical history to include: 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 Nonsmoking. No alcohol. Family history: Lung cancer, breast cancer, pancreatic cancer, colon cancer Physical examination: VITAL SIGNS: 97.8, 91, 18, 154/74, 96% room air GENERAL: BMI 25.3, laying in bed, awake. EYES: Pupils equal. Conjunctiva normal. HEENT: External appearance of nose and ears normal, oral cavity grossly normal. NECK: JVD not raised; masses not palpable. HEART: First and second heart sounds are normal; no edema. LUNGS: Respiratory rate normal; clear to auscultation. ABDOMEN: Soft, nontender, liver spleen not palpable, no masses palpable. PSYCH: Difficult to assess, anxiousl. MUSCULOSKELETAL:No Clubbing/cyanosis;muscles-grossly intact NEUROLOGICAL: [Cranial nerves grossly intact; no facial asymmetry, patient is moving all 4 limbs.. Speech is slow. INVESTIGATIONS, reviewed in the clinical context: EEG: Negative for epilepsy. MRI brain: Left amos lacunar infarct with other findings White count 9.1 hemoglobin 14.3 platelets 216 sodium 140 potassium 4.1 creatinine 1.06 Troponin I less than 0.012 UA: Negative EKG tracing personally reviewed by me: Right bundle-branch block, sinus rhythm Chest x-ray film personally reviewed by me-possible chronic changes CT angiogram head and neck: JVD T changes. Nothing acute CT brain without contrast for TPA: Pain volume loss changes, chronic ischemic changes and scattered chronic infarct. Lacunar infarct cannot be ruled out. Assessment and plan: -acute lacunar infarct/stroke in the left amos, in a patient with a stroke just over a month ago Not a candidate for TPA symptoms improved in the ER. Continue aspirin and Plavix. Lipitor 40 mg daily at bedtime -Essential hypertension with emergency: Better controlled Continue with Zestril 20 mg a day -Hyperlipidemia Lipitor 40 mg daily at bedtime -Diabetes mellitus type 2 trajenta 5 mg daily. Follow Accu-Cheks with sliding scale. 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 MRI EGD results noted. Discussed with Dr. Gregory from neurology. PTOT to continue.
[2021-07-02 20:10] LABS: Glucose,Whole Blood 112 mg/dL (75-99)
[2021-07-02] MEDS: QUEtiapine 100 MG TAB PO SCH (20:24)
[2021-07-02] MEDS: ATORVASTATIN 40 MG TAB PO SCH (20:24)
[2021-07-03 06:06] LABS: Glucose,Whole Blood 117 mg/dL (75-99)
[2021-07-03] MEDS: INSULIN ASPART (NovoLOG) 100 UNIT/ML VIAL SQ SCH ×4 (06:15→20:43)
[2021-07-03] MEDS: ASPIRIN 81 MG PO SCH (08:14)
[2021-07-03] MEDS: lisinopriL 20 MG TAB PO SCH (08:14)
[2021-07-03] MEDS: GABAPENTIN 100 MG CAP PO SCH ×2 (08:14→20:45)
[2021-07-03] MEDS: CLOPIDOGREL 75 MG TAB PO SCH (08:14)
[2021-07-03] MEDS: FOLIC ACID 1 MG TAB PO SCH (08:14)
[2021-07-03] MEDS: LINAGLIPTIN 5 MG TABLET PO SCH (08:14)
[2021-07-03 11:11] LABS: Glucose,Whole Blood 109 mg/dL (75-99)
[2021-07-03] MEDS ORDERED: TICAGRELOR 90 MG TAB PO STA (12:26)
--- NOTE | 2021-07-03 12:37 | P.PN ---
Subjective Progress Note Date: 07/03/21 The patient is seen at bedside and he feels he is doing better but per nursing staff he continues to be somewhat confused. Objective - Vital Signs Vital signs: Vital Signs Temp 98.4 F 07/03/21 08:00 Pulse 95 07/03/21 12:10 Resp 18 07/03/21 12:10 BP 142/79 07/03/21 12:10 Pulse Ox 94 L 07/03/21 12:10 Intake & Output 07/02/21 07/03/21 07/03/21 18:59 06:59 18:59 Intake Total 600 260 Output Total 750 Balance -150 260 Weight 58.5 kg Intake: Oral 600 260 Output: Urine 750 Other: Voiding Method Indwelling Catheter Indwelling Catheter Indwelling Catheter - Exam GENERAL: The patient is lying in bed and does not seem in acute distress but seems anxious. NEUROLOGICAL: Limited because of cooperation. Higher mental function: The patient is awake, alert oriented to self. He stated he is in the hospital. He stated the month is January and could not tell me current year. He is able to name pen and watch. He seems tangential upon taking to patient and a bit anxious. No aphasia or neglect. Cranial nerves: The pupils are round, equal and reactive to light. Visual farrell are full to confrontation throughout. Extraocular movement is intact no nystagmus is noted. ?right nasolabial flattening (left eye opening seems more constricted than right). No dysarthria noted. Motor: The strength is lifting bilateral upper and lower extremities above gravity and no drift. But could not assess individual muscles because of cooperation. b WORK-UP: Lipid panel triglycerides of 79, cholesterol is 113, LDLs 55 and HDL is 42 Urine analysis negative for urinary tract infection CT of the head is reported as brain volume loss changes, chronic ischemic changes and scattered chronic infarct described above. No acute intracranial hemorrhage or gross acute cortical infarct however a small acute or hyperacute infarct not be excluded. CT angiography of the head and neck was reported as no significant abnormality seen. Consider MRI follow-up. MRI of the brain is reported as subacute vascular accidents as described on chronic small vessel ischemic changes within the brain. The stroke is over the left parietal periventricular white matter Routine EEG on 07/02/2021 is abnormal. The back was SUGGESTIVE of mild encephalopathy of unknown etiology. There is no focal slowing, epileptiform dis charges or seizure on the EEG. Patient had a recent vitamin B12 of 275 on 05/24/2021. Serum folate at that time was 10.5 the. And that hemoglobin A1c was 6.5 also during that visit. - Labs CBC & Chem 7: 07/01/21 10:28 07/01/21 10:28 Labs: Abnormal Lab Results - Last 24 Hours (Table) 07/02/21 07/02/21 07/03/21 Range/Units 16:25 20:08 06:04 POC Glucose (mg/dL) 105 H 112 H 117 H (75-99) mg/dL 07/03/21 Range/Units 11:09 POC Glucose (mg/dL) 109 H (75-99) mg/dL Assessment and Plan Assessment: * Subacute stroke over the subcortical left parietal. On presentation he had dysarthria and left-sided weakness which resolved on my examination he is confused and he had questionable aphasia. No IV TPA since the risk outweighed the benefit and his symptoms resolved per the ED team. * Patient also has a component of hypertensive encephalopathy. * Uncontrolled hypertension and on presentation blood pressure is 225/112 * History of stroke last on 2021 (had stroke over left basal ganglia that is reported on MRI but I felt rousseau radiata. He presented with dysarthria and expressive aphasia) * History of bilateral basal ganglia ischemic stroke * Diabetes mellitus with recent hemoglobin A1c 6.5 * Low vitamin B12 of 275 * Very hard of hearing Plan: MRI of the brain is reported as subacute subcortical left parietal. Routine EEG shows mild encephalopathy. There is no focal slowing, epileptiform discharges or seizure on EEG. On his home dose of aspirin 81mg daily and Plavix 75mg daily. Because of recent stroke CONTINUE the aspirin but stopped Plavix and instead start him on Brilinta 180 mg loading dose the 90 mg 1 tablet twice a day. Patient to be on dual antiplatelets (ASA and Brilinta) for 21 days and after that to stop aspirin. Continue Lipitor 40 mg daily at bedtime for secondary stroke prophylaxis.. Patient had a recent 2-D echo on 05/2021. Because of the recent stroke I ordered a repeat limited the 2-D echo. Recommend consideration of ODALIS as an outpatient because the patient continues to have recurrent stroke as well as an event monitor/loop recorder. Recommend the patient to follow-up with cardiology as an outpatient. Continue neuro checks Placed on cardiac monitoring PT, OT and WATCH DIAL PRINTER is consulted We'll defer the blood pressure management to the primary team. Please avoid aggressive blood pressure management. Patient had a recent vitamin B12 of 275 on 05/24/2021. Serum folate at that time was 10.5 the. And that hemoglobin A1c was 6.5 also during that visit. Also had TSH of 2.20. Started the patient on Vitamin B12 1000mcg daily especially with every low normal vitamin B12 on recent prior admission. We'll defer the rest of medical management to the primary team Recommend the patient follow up with a neurologist in outpatient within 1-2 weeks. The plan was discussed with the patient's nurse. Beside above no further work-up. Fredo Mcfadden M.D. Neuro-hospitalist Time with Patient: Less than 30
[2021-07-03 13:16] VITALS: BMI 19.0
--- NOTE | 2021-07-03 15:42 | P.PN ---
Progress Note - Text Progress Note Date: 07/03/21 Chief Complaint: Left-sided weakness This is a 81-year-old patient who follows with Dr. Diego. As per the ER physician patient is brought in for a stroke and the staff and reported that patient had had some slurred speech and a baseline from previous stroke which happened about a month ago this morning patient became much worse and had left- sided weakness. Then per the EMS the left-sided weakness had resolved but continued to have some slurred speech. Some word salad. When the patient arrived to speech was more clear and is felt not to be candidate for TPA. In the ER physician could not find a new deficit. Patient not a very good historian. Does not complain of any vision changes or headache. Moving all his for his limbs. Patient was discharged on May 27 being here for about 4 days with a subacute infarct in the right internal Serial with resultant speech delay and cognitive reasoning deficit, hypertensive urgency. Chronic stable medical conditions include or basal ganglia, hearing difficulties, diabetes mellitus type 2, hyperlipidemia. Patient was discharged to rehab. EMS notes additionally stated: Patient's friend stated that patient showed up to his house confused and appeared that he was unit due to dizziness bands. As per the friend he was not making much sense not acting like his baseline. Patient normally lives alone and is usually able to care for himself. EMS stroke assessment was negative. Patient was initially uncooperative about coming to the hospital. His initial blood pressure recorded was over 200 systolic July 2: Patient has a slow speech. No focal weakness. MRI done today shows subacute old vascular accident./Lacunar infarct in the left amos. Also had an EEG done today. Did not show any epileptiform activity. Questionable delirium too.. July 3: Sitting up in a recliner. Talking with a bit slow. Discussed with Dr. Gregory from neurology. Consult cardiology for ODALIS and possible loop monitor given his computed tomography scan findings. Active Medications Acetaminophen (Acetaminophen Tab 325 Mg Tab) 650 mg PO Q6HR PRN PRN Reason: Mild Pain or Fever > 100.5 Alprazolam (Alprazolam 0.25 Mg Tab) 0.25 mg PO Q6HR PRN PRN Reason: Anxiety Aspirin (Aspirin 81 Mg) 81 mg PO DAILY [facility] [place] [place] Last Admin: 07/03/21 08:14 Dose: 81 mg Documented by: Atorvastatin Calcium (Atorvastatin 40 Mg Tab) 40 mg PO HS [facility] [place] Last Admin: 07/02/21 20:24 Dose: 40 mg Documented by: Calcium Carbonate/Glycine (Calcium Carbonate 500 Mg Chewable) 1,000 mg PO Q4HR PRN PRN Reason: Dyspepsia Folic Acid (Folic Acid 1 Mg Tab) 1 mg PO DAILY@0800 [facility] [place] Last Admin: 07/03/21 08:14 Dose: 1 mg Documented by: Gabapentin (Gabapentin 100 Mg Cap) 100 mg PO BID [facility] [place] Last Admin: 07/03/21 08:14 Dose: 100 mg Documented by: Insulin Aspart (Insulin Aspart (Novolog) 100 Unit/Ml Vial) 0 unit SQ [facility] [place]; Protocol Last Admin: 07/03/21 12:09 Dose: Not Given Documented by: Lactulose (Lactulose 20 Gm/30 Ml Cup) 20 gm PO DAILY PRN PRN Reason: Constipation Linagliptin (Linagliptin 5 Mg Tablet) 5 mg PO DAILY@0800 [facility] [place] [place] Last Admin: 07/03/21 08:14 Dose: 5 mg Documented by: Lisinopril (Lisinopril 20 Mg Tab) 20 mg PO DAILY [facility] [place] Last Admin: 07/03/21 08:14 Dose: 20 mg Documented by: Melatonin (Melatonin 3 Mg Tablet) 3 mg PO HS PRN PRN Reason: Insomnia Naloxone HCl (Naloxone 0.4 Mg/Ml 1 Ml Vial) 0.2 mg IV Q2M PRN PRN Reason: Opioid Reversal Ondansetron HCl (Ondansetron 4 Mg/2 Ml Vial) 4 mg IVP Q8HR PRN PRN Reason: Nausea And Vomiting Quetiapine Fumarate (Quetiapine 100 Mg Tab) 100 mg PO [facility] Last Admin: 07/02/21 20:24 Dose: 100 mg Documented by: Ticagrelor (Ticagrelor 90 Mg Tab) 90 mg PO BID [facility] Past medical history to include: 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 Nonsmoking. No alcohol. Family history: Lung cancer, breast cancer, pancreatic cancer, colon cancer Physical examination: VITAL SIGNS: 98.4, 94, 18, 142/79, 94% room air GENERAL: Up in a recliner, awake, comfortable EYES: Pupils equal. Conjunctiva normal. HEENT: External appearance of nose and ears normal, oral cavity grossly normal. NECK: JVD not raised; masses not palpable. HEART: First and second heart sounds are normal; no edema. LUNGS: Respiratory rate normal; clear to auscultation. ABDOMEN: Soft, nontender, liver spleen not palpable, no masses palpable. PSYCH: Answering simple questions. MUSCULOSKELETAL:No Clubbing/cyanosis;muscles-grossly intact NEUROLOGICAL: [Cranial nerves grossly intact; no facial asymmetry, patient is moving all 4 limbs.. Speech is slow. INVESTIGATIONS, reviewed in the clinical context: EEG: Negative for epilepsy. MRI brain: Left amos lacunar infarct with other findings White count 9.1 hemoglobin 14.3 platelets 216 sodium 140 potassium 4.1 creatinine 1.06 Troponin I less than 0.012 UA: Negative EKG tracing personally reviewed by me: Right bundle-branch block, sinus rhythm Chest x-ray film personally reviewed by me-possible chronic changes CT angiogram head and neck: JVD T changes. Nothing acute CT brain without contrast for TPA: Pain volume loss changes, chronic ischemic changes and scattered chronic infarct. Lacunar infarct cannot be ruled out. Assessment and plan: -acute lacunar infarct/stroke in the left amos, in a patient with a stroke just over a month ago Not a candidate for TPA symptoms improved in the ER. Continue aspirin and Plavix. Lipitor 40 mg daily at bedtime Given his recurrent strokes concerned for embolic versus underlying arrhythmia -Essential hypertension with emergency: Better controlled Continue with Zestril 20 mg a day -Hyperlipidemia Lipitor 40 mg daily at bedtime -Diabetes mellitus type 2 trajenta 5 mg daily. Follow Accu-Cheks with sliding scale. 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 Discussed with Dr. Mcfadden from neurology. Consult cardiology for ODALIS and possible loop monitor
[2021-07-03 16:12] LABS: Glucose,Whole Blood 102 mg/dL (75-99)
[2021-07-03 19:59] LABS: Glucose,Whole Blood 100 mg/dL (75-99)
[2021-07-03] MEDS: ATORVASTATIN 40 MG TAB PO SCH (20:45)
[2021-07-03] MEDS: TICAGRELOR 90 MG TAB PO SCH (20:45)
[2021-07-03] MEDS: QUEtiapine 100 MG TAB PO SCH (20:45)
[2021-07-04 06:08] LABS: Glucose,Whole Blood 110 mg/dL (75-99)
[2021-07-04] MEDS: INSULIN ASPART (NovoLOG) 100 UNIT/ML VIAL SQ SCH ×4 (06:08→20:30)
[2021-07-04] MEDS: LINAGLIPTIN 5 MG TABLET PO SCH (08:43)
[2021-07-04] MEDS: TICAGRELOR 90 MG TAB PO SCH ×2 (08:43→20:31)
[2021-07-04] MEDS: ASPIRIN 81 MG PO SCH (08:43)
[2021-07-04] MEDS: GABAPENTIN 100 MG CAP PO SCH ×2 (08:43→20:31)
[2021-07-04] MEDS: lisinopriL 20 MG TAB PO SCH (08:43)
[2021-07-04] MEDS: FOLIC ACID 1 MG TAB PO SCH (08:43)
--- NOTE | 2021-07-04 10:00 | ECHOF ---
Referral Reason:stroke. Limited echo MEASUREMENTS -------- HEIGHT: 175.3 cm WEIGHT: 58.1 kg BP: FINDINGS -------- Echo done 05/24/21: Limit study for TIA. LV size, wall thickness and systolic function are normal, with an EF greater than 55%. The left brennen tricular size is normal. CONCLUSIONS -------- 1. Echo done 05/24/21: Limit study for TIA. 2. LV size, wall thickness and systolic function are normal, with an EF greater than 55%. 3. The left ventricular size is normal. SCRUB NURSE: Ewa Askew RDCS
[2021-07-04] MEDS: BENZOCAINE SPRAY 1 CAN TOPICAL ONE ×2 (11:30→11:40)
[2021-07-04] MEDS ORDERED: SODIUM CHLORIDE 0.9% 500 ML 500 ML IV ONE ×2 (11:40)
[2021-07-04] MEDS ORDERED: MIDAZOLAM 2 MG/2 ML VIAL IV ONE (11:40)
[2021-07-04] MEDS ORDERED: fentaNYL (PF) 50 MCG/ML 2 ML AMP IV ONE (11:40)
--- NOTE | 2021-07-04 11:55 | P.TEE ---
Indications for Procedure(s): CVA Date of Procedure: 07/04/21 Preoperative Diagnosis: CVA, rule out cardiac source of emboli Postoperative Diagnosis: No cardiac source of emboli. Moderate plaque in the aorta Description of Procedure(s): INDICATION: This patient is admitted with a recurrent CVA. A ODALIS examination is requested to rule out cardiac source of emboli CONSENT: Consent was obtained from the family and power of contract attorney PROCEDURE: . Pt was brought to the lab in a fasting state. Pt was prepped and draped in the usual fashion. The throat was sprayed with Hurricaine. A lubricated Omni probe was introduced into the oropharynx and was advanced into the esophagus. Multiple views were obtained. Color, pulsed and continuous Doppler studies were done. Saline contrast bubble injection is performed .patient tolerated the procedure well. No immediate complications FINDINGS: The aortic valve is tricuspid and seemed to be functioning normally. The mitral valve is mildly thickened without any significant stenosis. Trace regurgitation noted. Tricuspid and pulmonic valves are not well visualized but seems to function normally. Left atrial appendage is free of any clot. The interatrial septum is appeared to be intact without any spontaneous shunt. Injection of the contrast saline bubble injections did not reveal any crossing of bubbles. The left ankle function appear to be preserved. The aorta showed moderate plaque. IMPRESSION: #1. No PFO #2. No clot in the left atrial appendage. #3. Normal valvular function, except trace to mild mitral regurgitation. #4. Preserved LV function. #5. Moderate plaque in the aorta PLAN: Continue current medical therapy
[2021-07-04 12:24] LABS: Glucose,Whole Blood 89 mg/dL (75-99)
[2021-07-04] MEDS: SODIUM CHLORIDE 0.9% 1,000 ML IV SCH (13:00)
--- NOTE | 2021-07-04 14:48 | P.PN ---
Subjective Progress Note Date: 07/04/21 The patient is seen at bedside and per the nurse he continues to be confused. Otherwise no new neurological issues. Primary team spoke with me about going with ODALIS and event monitor as inpatient and it was agreed to pursue it. Objective - Vital Signs Vital signs: Vital Signs Temp 97.6 F 07/04/21 08:54 Pulse 72 07/04/21 12:45 Resp 18 07/04/21 12:45 BP 131/70 07/04/21 12:45 Pulse Ox 97 07/04/21 12:45 Intake & Output 07/03/21 07/04/21 07/04/21 18:59 06:59 18:59 Intake Total 620 360 100 Output Total 700 225 Balance -80 135 100 Weight 58.5 kg 58.6 kg Intake: IV 100 Oral 620 360 0 Output: Urine 700 225 Uretheral ([place]) 225 Other: Voiding Method Indwelling Catheter Indwelling Catheter Indwelling Catheter - Exam GENERAL: The patient is lying in bed and does not seem in acute distress but seems anxious. NEUROLOGICAL: Limited because of cooperation. Higher mental function: The patient is awake, alert oriented to self. He stated he is in the hospital. He stated the month is January and could not tell me current year. He is able to name pen and watch. He seems tangential upon taking to patient and a bit anxious. No aphasia or neglect. Cranial nerves: The pupils are round, equal and reactive to light. Visual farrell are full to confrontation throughout. Extraocular movement is intact no nystagmus is noted. ?right nasolabial flattening (left eye opening seems more constricted than right). No dysarthria noted. Motor: The strength is lifting bilateral upper and lower extremities above gravity and no drift. But could not assess individual muscles because of cooperation. b WORK-UP: Lipid panel triglycerides of 79, cholesterol is 113, LDLs 55 and HDL is 42 Urine analysis negative for urinary tract infection CT of the head is reported as brain volume loss changes, chronic ischemic changes and scattered chronic infarct described above. No acute intracranial hemorrhage or gross acute cortical infarct however a small acute or hyperacute infarct not be excluded. CT angiography of the head and neck was reported as no significant abnormality seen. Consider MRI follow-up. MRI of the brain is reported as subacute vascular accidents as described on chronic small vessel ischemic changes within the brain. The stroke is over the left parietal periventricular white matter Routine EEG on 07/02/2021 is abnormal. The back was SUGGESTIVE of mild encephalopathy of unknown etiology. There is no focal slowing, epileptiform discharges or seizure on the EEG. Patient had a recent vitamin B12 of 275 on 05/24/2021. Serum folate at that time was 10.5 the. And that hemoglobin A1c was 6.5 also during that visit. Ordered 2-D echo is reported as left ventricle size, wall thickness and systolic function is low normal. Ejection fraction greater than 55%. - Labs CBC & Chem 7: 07/01/21 10:28 07/01/21 10:28 Labs: Abnormal Lab Results - Last 24 Hours (Table) 07/03/21 07/03/21 07/04/21 Range/Units 16:10 19:57 06:07 POC Glucose (mg/dL) 102 H 100 H 110 H (75-99) mg/dL Assessment and Plan Assessment: * Subacute stroke over the subcortical left parietal. On presentation he had dysarthria and left-sided weakness which resolved on my examination he is confused and he had questionable aphasia. No IV TPA since the risk outweighed the benefit and his symptoms resolved per the ED team. * Patient also has a component of hypertensive encephalopathy. * Uncontrolled hypertension and on presentation blood pressure is 225/112 * History of stroke last on 2021 (had stroke over left basal ganglia that is reported on MRI but I felt rousseau radiata. He presented with dysarthria and expressive aphasia) * History of bilateral basal ganglia ischemic stroke * Diabetes mellitus with recent hemoglobin A1c 6.5 * Low vitamin B12 of 275 * Very hard of hearing Plan: MRI of the brain is reported as subacute subcortical left parietal. Routine EEG shows mild encephalopathy. There is no focal slowing, epileptiform discharges or seizure on EEG. On his home dose of aspirin 81mg daily. Stopped Plavix during this hospital stay since failled. Instead started him on Brilinta 90 mg 1 tablet twice a day. Patient to be on dual antiplatelets (ASA and Brilinta) for 21 days and after that to stop aspirin. Continue Lipitor 40 mg daily at bedtime for secondary stroke prophylaxis.. Patient had a recent 2-D echo on 05/2021. Since the patient continues to have recurrent strokes cardiology is consulted for ODALIS and for event monitor. Continue neuro checks Placed on cardiac monitoring PT, OT and FACILITY MANAGER HISTOLOGY is consulted We'll defer the blood pressure management to the primary team. Please avoid aggressive blood pressure management. Patient had a recent vitamin B12 of 275 on 05/24/2021. Serum folate at that time was 10.5 the. And that hemoglobin A1c was 6.5 also during that visit. Also had TSH of 2.20. Started the patient on Vitamin B12 1000mcg daily especially with every low normal vitamin B12 on recent prior admission. We'll defer the rest of medical management to the primary team Recommend the patient follow up with a neurologist in outpatient within 1-2 weeks. UPDATE: Transesophageal echocardiogram is reported as no PFO. No clot in the left atrial appendage. Normal valvular function except trace to mild mitral regurgitation. Preserved left ventricular function. Moderate plaque in the aorta. The plan was discussed with the patient's nurse. Beside above no further work-up. Fredo Mcfadden M.D. Neuro-hospitalist Time with Patient: Less than 30
[2021-07-04 17:00] LABS: Glucose,Whole Blood 93 mg/dL (75-99)
--- NOTE | 2021-07-04 18:24 | P.PN ---
Progress Note - Text Progress Note Date: 07/04/21 Chief Complaint: Left-sided weakness This is a 81-year-old patient who follows with Dr. Diego. As per the ER physician patient is brought in for a stroke and the staff and reported that patient had had some slurred speech and a baseline from previous stroke which happened about a month ago this morning patient became much worse and had left- sided weakness. Then per the EMS the left-sided weakness had resolved but continued to have some slurred speech. Some word salad. When the patient arrived to speech was more clear and is felt not to be candidate for TPA. In the ER physician could not find a new deficit. Patient not a very good historian. Does not complain of any vision changes or headache. Moving all his for his limbs. Patient was discharged on May 27 being here for about 4 days with a subacute infarct in the right internal Serial with resultant speech delay and cognitive reasoning deficit, hypertensive urgency. Chronic stable medical conditions include or basal ganglia, hearing difficulties, diabetes mellitus type 2, hyperlipidemia. Patient was discharged to rehab. EMS notes additionally stated: Patient's friend stated that patient showed up to his house confused and appeared that he was unit due to dizziness bands. As per the friend he was not making much sense not acting like his baseline. Patient normally lives alone and is usually able to care for himself. EMS stroke assessment was negative. Patient was initially uncooperative about coming to the hospital. His initial blood pressure recorded was over 200 systolic July 2: Patient has a slow speech. No focal weakness. MRI done today shows subacute old vascular accident./Lacunar infarct in the left amos. Also had an EEG done today. Did not show any epileptiform activity. Questionable delirium too.. July 3: Sitting up in a recliner. Talking with a bit slow. Discussed with Dr. Gregory from neurology. Consult cardiology for ODALIS and possible loop monitor given his computed tomography scan findings. July 04: Patient underwent ODALIS today. No PFO no clot discovered. Discussed with Dr. Jc Juarez from cardio: loop monitor placement Active Medications Acetaminophen (Acetaminophen Tab 325 Mg Tab) 650 mg PO Q6HR PRN PRN Reason: Mild Pain or Fever > 100.5 Alprazolam (Alprazolam 0.25 Mg Tab) 0.25 mg PO Q6HR PRN PRN Reason: Anxiety Aspirin (Aspirin 81 Mg) 81 mg PO DAILY [facility] Last Admin: 07/04/21 08:43 Dose: 81 mg Documented by: Atorvastatin Calcium (Atorvastatin 40 Mg Tab) 40 mg PO HS [facility] Last Admin: 07/03/21 20:45 Dose: 40 mg Documented by: Calcium Carbonate/Glycine (Calcium Carbonate 500 Mg Chewable) 1,000 mg PO Q4HR PRN PRN Reason: Dyspepsia Folic Acid (Folic Acid 1 Mg Tab) 1 mg PO DAILY@0800 [facility] Last Admin: 07/04/21 08:43 Dose: 1 mg Documented by: Gabapentin (Gabapentin 100 Mg Cap) 100 mg PO BID [facility] Last Admin: 07/04/21 08:43 Dose: 100 mg Documented by: Sodium Chloride (Saline 0.9%) 1,000 mls @ 20 mls/hr IV .Q24H [facility] Last Admin: 07/04/21 13:00 Dose: Not Given Documented by: Insulin Aspart (Insulin Aspart (Novolog) 100 Unit/Ml Vial) 0 unit SQ [facility]; Protocol Last Admin: 07/04/21 17:49 Dose: Not Given Documented by: Lactulose (Lactulose 20 Gm/30 Ml Cup) 20 gm PO DAILY PRN PRN Reason: Constipation Linagliptin (Linagliptin 5 Mg Tablet) 5 mg PO DAILY@0800 [facility] Last Admin: 07/04/21 08:43 Dose: 5 mg Documented by: Lisinopril (Lisinopril 20 Mg Tab) 20 mg PO DAILY [facility] Last Admin: 07/04/21 08:43 Dose: 20 mg Documented by: Melatonin (Melatonin 3 Mg Tablet) 3 mg PO HS PRN PRN Reason: Insomnia Naloxone HCl (Naloxone 0.4 Mg/Ml 1 Ml Vial) 0.2 mg IV Q2M PRN PRN Reason: Opioid Reversal Ondansetron HCl (Ondansetron 4 Mg/2 Ml Vial) 4 mg IVP Q8HR PRN PRN Reason: Nausea And Vomiting Quetiapine Fumarate (Quetiapine 100 Mg Tab) 100 mg PO HS [facility] Last Admin: 07/03/21 20:45 Dose: 100 mg Documented by: Ticagrelor (Ticagrelor 90 Mg Tab) 90 mg PO BID [facility] Last Admin: 07/04/21 08:43 Dose: 90 mg Documented by: Past medical history to include: 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 Nonsmoking. No alcohol. Family history: Lung cancer, breast cancer, pancreatic cancer, colon cancer Physical examination: VITAL SIGNS: 97.6, 72, 18, 150/85, iron percent room air GENERAL: Laying in bed comfortable EYES: Pupils equal. Conjunctiva normal. HEENT: External appearance of nose and ears normal, oral cavity grossly normal. NECK: JVD not raised; masses not palpable. HEART: First and second heart sounds are normal; no edema. LUNGS: Respiratory rate normal; clear to auscultation. ABDOMEN: Soft, nontender, liver spleen not palpable, no masses palpable. PSYCH: Answering simple questions. MUSCULOSKELETAL:No Clubbing/cyanosis;muscles-grossly intact NEUROLOGICAL: [Cranial nerves grossly intact; no facial asymmetry, patient is moving all 4 limbs.. Speech is slow. INVESTIGATIONS, reviewed in the clinical context: ODALIS: Negative EEG: Negative for epilepsy. MRI brain: Left amos lacunar infarct with other findings White count 9.1 hemoglobin 14.3 platelets 216 sodium 140 potassium 4.1 creatinine 1.06 Troponin I less than 0.012 UA: Negative EKG tracing personally reviewed by me: Right bundle-branch block, sinus rhythm Chest x-ray film personally reviewed by me-possible chronic changes CT angiogram head and neck: JVD T changes. Nothing acute CT brain without contrast for TPA: Pain volume loss changes, chronic ischemic changes and scattered chronic infarct. Lacunar infarct cannot be ruled out. Assessment and plan: -acute lacunar infarct/stroke in the left amos, in a patient with a stroke just over a month ago Not a candidate for TPA symptoms improved in the ER. Continue aspirin and Plavix. Lipitor 40 mg daily at bedtime ODALIS: Negative follow-up monitor -Essential hypertension with emergency: Better controlled Continue with Zestril 20 mg a day -Hyperlipidemia Lipitor 40 mg daily at bedtime -Diabetes mellitus type 2 trajenta 5 mg daily. Follow Accu-Cheks with sliding scale. 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 ODALIS: Unremarkable. For loop monitor. Other medications to continue
[2021-07-04 19:52] LABS: Glucose,Whole Blood 180 mg/dL (75-99)
[2021-07-04] MEDS: QUEtiapine 100 MG TAB PO SCH (20:31)
[2021-07-04] MEDS: ATORVASTATIN 40 MG TAB PO SCH (20:31)
[2021-07-05 06:01] LABS: Glucose,Whole Blood 112 mg/dL (75-99)
[2021-07-05] MEDS: INSULIN ASPART (NovoLOG) 100 UNIT/ML VIAL SQ SCH ×4 (06:16→20:37)
[2021-07-05] MEDS: LINAGLIPTIN 5 MG TABLET PO SCH (09:20)
[2021-07-05] MEDS: TICAGRELOR 90 MG TAB PO SCH ×2 (09:20→20:37)
[2021-07-05] MEDS: ASPIRIN 81 MG PO SCH (09:20)
[2021-07-05] MEDS: FOLIC ACID 1 MG TAB PO SCH (09:20)
[2021-07-05] MEDS: GABAPENTIN 100 MG CAP PO SCH ×2 (09:20→20:37)
[2021-07-05] MEDS: lisinopriL 20 MG TAB PO SCH (09:20)
[2021-07-05] MEDS: SODIUM CHLORIDE 0.9% 1,000 ML IV SCH (09:21)
[2021-07-05 11:30] LABS: Glucose,Whole Blood 85 mg/dL (75-99)
--- NOTE | 2021-07-05 13:16 | P.PN ---
Subjective Progress Note Date: 07/05/21 The patient was interviewed and examined lying comfortably in bed. He awakened to stimuli to his feet as well as his name. Inappropriate answers. States he is unaware of his location. Recent ODALIS showed no evidence of PFO or vegetation GENERAL: Well-appearing, lethargic. NECK: Supple without JVD or thyromegaly. LUNGS: Breath sounds clear to auscultation bilaterally. Respiration equal and unlabored. No wheezes, rales or rhonchi. HEART: Regular rate and rhythm without murmurs, rubs or gallops. S1 and S2 heard. EXTREMITIES: Normal range of motion, no edema. No clubbing or cyanosis. VITALS: Blood pressure 118/72, SpO2 96% on room air, respiratory rate 16, pulse 84 TELEMETRY: Sinus mechanism IMPRESSION: Acute CVA, subcortical left parietal Mental status changes Diabetes Hypertension Dyslipidemia PLAN: Proceed with Loop monitor implant for A. fib monitoring as he has had recurrent strokes Continue current medication regimens Further recommendations to be clinical course I am dictating on behalf of Dr Arun Juarez's history/physical and assessment/plan. Objective - Vital Signs Vital signs: Vital Signs Temp 97.6 F 07/05/21 04:00 Pulse 73 07/05/21 08:00 Resp 16 07/05/21 08:00 BP 105/61 07/05/21 08:00 Pulse Ox 95 07/05/21 08:00 Intake & Output 07/04/21 07/05/21 07/05/21 18:59 06:59 18:59 Intake Total 808 Output Total 1200 300 Balance -392 -300 Intake: IV 100 Oral 708 Output: Urine 1200 300 Other: Voiding Method Indwelling Catheter Indwelling Catheter # Emeses 1 - Labs CBC & Chem 7: 07/01/21 10:28 07/01/21 10:28 Labs: Abnormal Lab Results - Last 24 Hours (Table) 07/04/21 07/05/21 Range/Units 19:50 06:00 POC Glucose (mg/dL) 180 H 112 H (75-99) mg/dL
--- NOTE | 2021-07-05 14:09 | P.PN ---
Progress Note - Text Progress Note Date: 07/05/21 Chief Complaint: Left-sided weakness This is a 81-year-old patient who follows with Dr. Diego. As per the ER physician patient is brought in for a stroke and the staff and reported that patient had had some slurred speech and a baseline from previous stroke which happened about a month ago this morning patient became much worse and had left- sided weakness. Then per the EMS the left-sided weakness had resolved but continued to have some slurred speech. Some word salad. When the patient arrived to speech was more clear and is felt not to be candidate for TPA. In the ER physician could not find a new deficit. Patient not a very good historian. Does not complain of any vision changes or headache. Moving all his for his limbs. Patient was discharged on May 27 being here for about 4 days with a subacute infarct in the right internal Serial with resultant speech delay and cognitive reasoning deficit, hypertensive urgency. Chronic stable medical conditions include or basal ganglia, hearing difficulties, diabetes mellitus type 2, hyperlipidemia. Patient was discharged to rehab. EMS notes additionally stated: Patient's friend stated that patient showed up to his house confused and appeared that he was unit due to dizziness bands. As per the friend he was not making much sense not acting like his baseline. Patient normally lives alone and is usually able to care for himself. EMS stroke assessment was negative. Patient was initially uncooperative about coming to the hospital. His initial blood pressure recorded was over 200 systolic July 2: Patient has a slow speech. No focal weakness. MRI done today shows subacute old vascular accident./Lacunar infarct in the left amos. Also had an EEG done today. Did not show any epileptiform activity. Questionable delirium too.. July 3: Sitting up in a recliner. Talking with a bit slow. Discussed with Dr. Gregory from neurology. Consult cardiology for ODALIS and possible loop monitor given his computed tomography scan findings. July 04: Patient underwent ODALIS today. No PFO no clot discovered. Discussed with Dr. Jc Juarez from cardio: loop monitor placement July 05: Comfortable. Pending loop monitor placement. No new issues. Active Medications Acetaminophen (Acetaminophen Tab 325 Mg Tab) 650 mg PO Q6HR PRN PRN Reason: Mild Pain or Fever > 100.5 Alprazolam (Alprazolam 0.25 Mg Tab) 0.25 mg PO Q6HR PRN PRN Reason: Anxiety Aspirin (Aspirin 81 Mg) 81 mg PO DAILY [facility] Last Admin: 07/05/21 09:20 Dose: 81 mg Documented by: Atorvastatin Calcium (Atorvastatin 40 Mg Tab) 40 mg PO HS [facility] Last Admin: 07/04/21 20:31 Dose: 40 mg Documented by: Calcium Carbonate/Glycine (Calcium Carbonate 500 Mg Chewable) 1,000 mg PO Q4HR PRN PRN Reason: Dyspepsia Folic Acid (Folic Acid 1 Mg Tab) 1 mg PO DAILY@0800 [facility] Last Admin: 07/05/21 09:20 Dose: 1 mg Documented by: Gabapentin (Gabapentin 100 Mg Cap) 100 mg PO BID [facility] Last Admin: 07/05/21 09:20 Dose: 100 mg Documented by: Sodium Chloride (Saline 0.9%) 1,000 mls @ 20 mls/hr IV .Q24H [facility] Last Admin: 07/05/21 09:21 Dose: Not Given Documented by: Insulin Aspart (Insulin Aspart (Novolog) 100 Unit/Ml Vial) 0 unit SQ [facility]; Protocol Last Admin: 07/05/21 12:40 Dose: Not Given Documented by: Lactulose (Lactulose 20 Gm/30 Ml Cup) 20 gm PO DAILY PRN PRN Reason: Constipation Linagliptin (Linagliptin 5 Mg Tablet) 5 mg PO DAILY@0800 [facility] Last Admin: 07/05/21 09:20 Dose: 5 mg Documented by: Lisinopril (Lisinopril 20 Mg Tab) 20 mg PO DAILY [facility] Last Admin: 07/05/21 09:20 Dose: 20 mg Documented by: Lisinopril (Lisinopril 10 Mg Tab) 10 mg PO DAILY [facility] Melatonin (Melatonin 3 Mg Tablet) 3 mg PO HS PRN PRN Reason: Insomnia Naloxone HCl (Naloxone 0.4 Mg/Ml 1 Ml Vial) 0.2 mg IV Q2M PRN PRN Reason: Opioid Reversal Ondansetron HCl (Ondansetron 4 Mg/2 Ml Vial) 4 mg IVP Q8HR PRN PRN Reason: Nausea And Vomiting Quetiapine Fumarate (Quetiapine 100 Mg Tab) 100 mg PO HS [facility] Last Admin: 07/04/21 20:31 Dose: 100 mg Documented by: Ticagrelor (Ticagrelor 90 Mg Tab) 90 mg PO BID [facility] Last Admin: 07/05/21 09:20 Dose: 90 mg Documented by: Past medical history to include: 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 Nonsmoking. No alcohol. Family history: Lung cancer, breast cancer, pancreatic cancer, colon cancer Physical examination: VITAL SIGNS: 97.6, 84, 16, 118/72, 96% room air GENERAL: Laying in bed comfortable EYES: Pupils equal. Conjunctiva normal. HEENT: External appearance of nose and ears normal, oral cavity grossly normal. NECK: JVD not raised; masses not palpable. HEART: First and second heart sounds are normal; no edema. LUNGS: Respiratory rate normal; clear to auscultation. ABDOMEN: Soft, nontender, liver spleen not palpable, no masses palpable. PSYCH: Answering simple questions. MUSCULOSKELETAL:No Clubbing/cyanosis;muscles-grossly intact NEUROLOGICAL: [Cranial nerves grossly intact; no facial asymmetry, patient is moving all 4 limbs.. Speech is slow. INVESTIGATIONS, reviewed in the clinical context: ODALIS: Negative EEG: Negative for epilepsy. MRI brain: Left amos lacunar infarct with other findings White count 9.1 hemoglobin 14.3 platelets 216 sodium 140 potassium 4.1 creatinine 1.06 Troponin I less than 0.012 UA: Negative EKG tracing personally reviewed by me: Right bundle-branch block, sinus rhythm Chest x-ray film personally reviewed by me-possible chronic changes CT angiogram head and neck: JVD T changes. Nothing acute CT brain without contrast for TPA: Pain volume loss changes, chronic ischemic changes and scattered chronic infarct. Lacunar infarct cannot be ruled out. Assessment and plan: -acute lacunar infarct/stroke in the left amos, in a patient with a stroke just over a month ago Not a candidate for TPA symptoms improved in the ER. Continue aspirin and Plavix. Lipitor 40 mg daily at bedtime ODALIS: Negative follow-up monitor -Essential hypertension with emergency: Better controlled Continue with Zestril 20 mg a day -Hyperlipidemia Lipitor 40 mg daily at bedtime -Diabetes mellitus type 2 trajenta 5 mg daily. Follow Accu-Cheks with sliding scale. 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 ODALIS: Unremarkable. Pending loop monitor placement.
[2021-07-05 16:11] LABS: Glucose,Whole Blood 91 mg/dL (75-99)
--- NOTE | 2021-07-05 17:10 | P.PN ---
Subjective Progress Note Date: 07/05/21 The patient is seen at bedside and he feels about the same. He continues to have confusion episodes per nurse. Objective - Vital Signs Vital signs: Vital Signs Temp 97.6 F 07/05/21 04:00 Pulse 84 07/05/21 12:00 Resp 16 07/05/21 12:59 BP 118/72 07/05/21 12:00 Pulse Ox 96 07/05/21 12:59 Intake & Output 07/04/21 07/05/21 07/05/21 18:59 06:59 18:59 Intake Total 808 Output Total 1200 300 Balance -392 -300 Intake: IV 100 Oral 708 Output: Urine 1200 300 Other: Voiding Method Indwelling Catheter Indwelling Catheter Indwelling Catheter # Emeses 1 - Exam GENERAL: The patient is lying in bed and does not seem in acute distress but seems anxious. NEUROLOGICAL: Limited because of cooperation. Higher mental function: The patient is awake, alert oriented to self. He stated he is in the hospital. He stated the month is January and could not tell me current year. He is able to name pen and watch. He seems tangential upon taking to patient and a bit anxious. No aphasia or neglect. Cranial nerves: The pupils are round, equal and reactive to light. Visual farrell are full to confrontation throughout. Extraocular movement is intact no nystagmus is noted. ?right nasolabial flattening (left eye opening seems more constricted than right). No dysarthria noted. Motor: The strength is lifting bilateral upper and lower extremities above gravity and no drift. But could not assess individual muscles because of cooperation. b WORK-UP: Lipid panel triglycerides of 79, cholesterol is 113, LDLs 55 and HDL is 42 Urine analysis negative for urinary tract infection CT of the head is reported as brain volume loss changes, chronic ischemic changes and scattered chronic infarct described above. No acute intracranial hemorrhage or gross acute cortical infarct however a small acute or hyperacute infarct not be excluded. CT angiography of the head and neck was reported as no significant abnormality seen. Consider MRI follow-up. MRI of the brain is reported as subacute vascular accidents as described on chronic small vessel ischemic changes within the brain. The stroke is over the left parietal periventricular white matter Routine EEG on 07/02/2021 is abnormal. The back was SUGGESTIVE of mild encephalopathy of unknown etiology. There is no focal slowing, epileptiform d ischarges or seizure on the EEG. Patient had a recent vitamin B12 of 275 on 05/24/2021. Serum folate at that time was 10.5 the. And that hemoglobin A1c was 6.5 also during that visit. Ordered 2-D echo is reported as left ventricle size, wall thickness and systolic function is low normal. Ejection fraction greater than 55%. Transesophageal echocardiogram is reported as no PFO. No clot in the left atrial appendage. Normal valvular function, except trace mild mitral regurgitation. Preserved left ventricular function. Moderate plaque in the aorta. - Labs CBC & Chem 7: 07/01/21 10:28 07/01/21 10:28 Labs: Abnormal Lab Results - Last 24 Hours (Table) 07/04/21 07/05/21 Range/Units 19:50 06:00 POC Glucose (mg/dL) 180 H 112 H (75-99) mg/dL Assessment and Plan Assessment: * Subacute stroke over the subcortical left parietal. On presentation he had dysarthria and left-sided weakness which resolved on my examination he is confused and he had questionable aphasia. No IV TPA since the risk outweighed the benefit and his symptoms resolved per the ED team. * Patient also has a component of hypertensive encephalopathy. * Uncontrolled hypertension and on presentation blood pressure is 225/112 * History of stroke last on 05/2021 (had stroke over left basal ganglia that is reported on MRI but I felt rousseau radiata. He presented with dysarthria and expressive aphasia) * History of bilateral basal ganglia ischemic stroke * Diabetes mellitus with recent hemoglobin A1c 6.5 * Low vitamin B12 of 275 * Very hard of hearing Plan: MRI of the brain is reported as subacute subcortical left parietal. Routine EEG shows mild encephalopathy. There is no focal slowing, epileptiform discharges or seizure on EEG. On his home dose of aspirin 81mg daily. Stopped Plavix during this hospital stay since failed. Instead started him on Brilinta 90 mg 1 tablet twice a day. Patient to be on dual antiplatelets (ASA and Brilinta) for 21 days and after that to stop aspirin. Continue Lipitor 40 mg daily at bedtime for secondary stroke prophylaxis.. ODALIS during this hospital visit is unremarkable. Radiology team is also consulted for an event monitor or can consider loop recorder because of recurrent strokes. Continue neuro checks On cardiac monitoring PT, OT and NUCLEAR WORKER TECHNICIAN is consulted Patient had a recent vitamin B12 of 275 on 05/24/2021. Serum folate at that time was 10.5 the. And that hemoglobin A1c was 6.5 also during that visit. Also had TSH of 2.20. Started the patient on Vitamin B12 1000mcg daily especially with low normal vitamin B12 on recent prior admission. We'll defer the rest of medical management to the primary team Recommend the patient follow up with a neurologist in outpatient within 1-2 weeks. The plan was discussed with the patient's nurse. There is no further neurological work-up. Fredo Mcfadden M.D. Neuro-hospitalist Time with Patient: Less than 30
--- NOTE | 2021-07-05 17:50 | P.HPCAR ---
History of Present Illness This is Dr. Juarez dictating a consult on this patient The patient was interviewed and examined IMPRESSION / ASSESSMENT: Recurrent CVA I spoke to neurology and the were recommending a ODALIS and loop implant The original impression was that this gentleman had lacunar infarcts However despite appropriate medical treatment could used to have recurrent strokes and therefore the question was raised regarding cardiac thrombi embolism PLAN: ODALIS, with Dr. Maria loop implant later to look for atrial fibrillation Continue current medications HPI Patient presented with recurrent stroke once again despite medical treatment He does not give history at all ROS: Unable to obtain, patient not able to give history EXAMINATION: Heart sounds are regular no murmurs Breath sounds are reduced bilaterally poor respiratory effort Abdomen soft Extremities are warm Lying comfortably in bed no respiratory distress REVIEW OF LABS, ECG & MEDICAL DATA CT of the brain shows chronic ischemic changes CT of the head and neck shows no abnormalities Subacute of vascular accident on chronic small vessel ischemic changes Lacunar infarct in the left amos White count 9.1, hemoglobin 14.3 Sodium 140 potassium 4.1 BUN 18 creatinine 1.06 Normal liver function tests Triglycerides 79, total cholesterol 113, LDL 55 Normal troponin Physical Exam Vitals: Vital Signs Temp Pulse Resp BP Pulse Ox 07/04/21 08:54 97.6 F 77 16 138/78 100 07/04/21 04:00 97.8 F 77 16 110/60 96 07/04/21 00:00 98.2 F 80 18 154/74 96 07/03/21 20:00 97.6 F 83 18 163/89 95 07/03/21 16:00 97.9 F 94 18 160/103 99 07/03/21 14:00 95 18 07/03/21 13:00 18 07/03/21 12:10 95 18 142/79 94 L Intake and Output 07/03/21 07/04/21 07/04/21 22:59 06:59 14:59 Intake Total 360 Output Total 700 225 Balance -700 135 Intake: Oral 360 Output: Urine 700 225 Uretheral (Benton) 225 Other: Voiding Method Indwelling Catheter Weight 58.6 kg Past Medical History Past Medical History: No Reported History Additional Past Medical History / Comment(s): Per sister, denies any medial diagnosis History of Any Multi-Drug Resistant Organisms: Unobtainable Past Surgical History: No Surgical Hx Reported Additional Past Surgical History / Comment(s): Per sister, no surgical interventions, patient did have eye injury at 9 years old with branch from tree Past Anesthesia/Blood Transfusion Reactions: No Reported Reaction Past Psychological History: No Psychological Hx Reported Smoking Status: Never smoker Past Alcohol Use History: None Reported Past Drug Use History: None Reported - Past Family History family Family Medical History: Cancer Additional Family Medical History / Comment(s): Father of lung cancer. Mother had Breast Cancer. Brother of pancreatic cancer. brother of colon cancer. Was the forth child out of sever, oldest living ouf of siblings Physical Examination Vital Signs Temp Pulse Resp BP Pulse Ox 07/04/21 08:54 97.6 F 77 16 138/78 100 07/04/21 04:00 97.8 F 77 16 110/60 96 07/04/21 00:00 98.2 F 80 18 154/74 96 07/03/21 20:00 97.6 F 83 18 163/89 95 07/03/21 16:00 97.9 F 94 18 160/103 99 07/03/21 14:00 95 18 07/03/21 13:00 18 07/03/21 12:10 95 18 142/79 94 L Intake and Output 07/03/21 07/04/21 07/04/21 22:59 06:59 14:59 Intake Total 360 Output Total 700 225 Balance -700 135 Intake: Oral 360 Output: Urine 700 225 Uretheral (Benton) 225 Other: Voiding Method Indwelling Catheter Weight 58.6 kg Results 07/01/21 10:28 07/01/21 10:28 Current Medications Generic Name Dose Route Start Last Admin Trade Name Freq PRN Reason Stop Dose Admin Acetaminophen 650 mg 07/01/21 13:26 Acetaminophen Tab 325 Mg Tab PO Q6HR PRN Mild Pain or Fever > 100.5 Alprazolam 0.25 mg 07/01/21 13:26 Alprazolam 0.25 Mg Tab PO Q6HR PRN Anxiety Aspirin 81 mg 07/02/21 09:00 07/04/21 08:43 Aspirin 81 Mg PO 81 mg DAILY [facility] Administration Atorvastatin Calcium 40 mg 07/01/21 21:00 07/03/21 20:45 Atorvastatin 40 Mg Tab PO 40 mg HS [facility] Administration Calcium Carbonate/Glycine 1,000 mg 07/01/21 13:26 Calcium Carbonate 500 Mg Chewable PO Q4HR PRN Dyspepsia Folic Acid 1 mg 07/02/21 08:00 07/04/21 08:43 Folic Acid 1 Mg Tab PO 1 mg DAILY@0800 [facility] Administration Gabapentin 100 mg 07/01/21 21:00 07/04/21 08:43 Gabapentin 100 Mg Cap PO 100 mg BID [facility] Administration Insulin Aspart 0 unit 07/01/21 17:30 07/04/21 06:08 Insulin Aspart (Novolog) 100 Unit/Ml Vial SQ Not Given ACHS [facility] Protocol Lactulose 20 gm 07/01/21 13:26 Lactulose 20 Gm/30 Ml Cup PO DAILY PRN Constipation Linagliptin 5 mg 07/02/21 08:00 07/04/21 08:43 Linagliptin 5 Mg Tablet PO 5 mg DAILY@0800 [facility] Administration Lisinopril 20 mg 07/02/21 09:00 07/04/21 08:43 Lisinopril 20 Mg Tab PO 20 mg DAILY [facility] Administration Melatonin 3 mg 07/01/21 13:26 Melatonin 3 Mg Tablet PO HS PRN Insomnia Naloxone HCl 0.2 mg 07/01/21 13:26 Naloxone 0.4 Mg/Ml 1 Ml Vial IV Q2M PRN Opioid Reversal Ondansetron HCl 4 mg 07/01/21 13:26 Ondansetron 4 Mg/2 Ml Vial IVP Q8HR PRN Nausea And Vomiting Quetiapine Fumarate 100 mg 07/01/21 21:00 07/03/21 20:45 Quetiapine 100 Mg Tab PO 100 mg HS [facility] Administration Ticagrelor 90 mg 07/03/21 21:00 07/04/21 08:43 Ticagrelor 90 Mg Tab PO 90 mg BID [facility] Administration Intake and Output 07/03/21 07/04/21 07/04/21 22:59 06:59 14:59 Intake Total 360 Output Total 700 225 Balance -700 135 Intake: Oral 360 Output: Urine 700 225 Uretheral (Benton) 225 Other: Voiding Method Indwelling Catheter Weight 58.6 kg 07/01/21 10:28 07/01/21 10:28
[2021-07-05] MEDS ORDERED: LIDOCAINE 1% INJ 10MG/ML (20 ML MDV) ONE (18:30)
[2021-07-05] MEDS: ALPRAZolam 0.25 MG TAB PO PRN (19:35)
[2021-07-05 19:49] LABS: Glucose,Whole Blood 95 mg/dL (75-99)
[2021-07-05] MEDS: ATORVASTATIN 40 MG TAB PO SCH (20:37)
[2021-07-05] MEDS: QUEtiapine 100 MG TAB PO SCH (20:37)
[2021-07-05] MEDS ORDERED: HALOPERIDOL LACTATE 5 MG/ML 1 ML VIAL IM ONE (21:31)
[2021-07-06 06:00] LABS: Glucose,Whole Blood 85 mg/dL (75-99)
[2021-07-06] MEDS: INSULIN ASPART (NovoLOG) 100 UNIT/ML VIAL SQ SCH ×4 (06:01→20:14)
[2021-07-06] MEDS ORDERED: lisinopriL 10 MG TAB PO SCH (09:00)
[2021-07-06] MEDS: ASPIRIN 81 MG PO SCH (09:12)
[2021-07-06] MEDS: FOLIC ACID 1 MG TAB PO SCH (09:12)
[2021-07-06] MEDS: TICAGRELOR 90 MG TAB PO SCH ×2 (09:12→20:14)
[2021-07-06] MEDS: lisinopriL 20 MG TAB PO SCH (09:12)
[2021-07-06] MEDS: GABAPENTIN 100 MG CAP PO SCH ×2 (09:12→20:13)
[2021-07-06] MEDS: LINAGLIPTIN 5 MG TABLET PO SCH (09:12)
[2021-07-06 11:21] LABS: Glucose,Whole Blood 145 mg/dL (75-99)
--- NOTE | 2021-07-06 12:19 | P.PN ---
Progress Note - Text Attempted implantation of a loop monitor last night that was recommended by neurology since he had. Recurrent Strokes despite optimal medical treatment for atherosclerotic cause of strokes This gentleman became quite violent and said that I was out of my mind trying to put this in him after thinking about what the patient said to be, I concur with this opinion This is a gentleman who's had multiple strokes The etiology is unclear but his overall quality of life and his mental status is extremely poor His ODALIS was unrevealing of any clear-cut cause There comes a point in time when we need to stop and I concur with the gentleman's indirect reference to this I would recommend only medical management as best as we can make it, without any further testing I'm signing off now
--- NOTE | 2021-07-06 12:31 | P.PN ---
Subjective Progress Note Date: 07/06/21 The patient was interviewed and examined lying comfortably in bed. He is a now awake and alert to self. Simple questions with appropriate answers. He denies any pain or pressure. No difficulty breathing. He is eager to leave the hospital. Recent ODALIS showed no evidence of PFO or vegetation Attempted Loop monitor implant yesterday, however the patient was combative. Deferred at this time. GENERAL: Well-appearing. NECK: Supple without JVD or thyromegaly. LUNGS: Breath sounds clear to auscultation bilaterally. Respiration equal and unlabored. No wheezes, rales or rhonchi. HEART: Regular rate and rhythm without murmurs, rubs or gallops. S1 and S2 heard. EXTREMITIES: Normal range of motion, no edema. No clubbing or cyanosis. VITALS: Blood pressure 157/80, pulse rate 76, respiratory rate 16, SpO2 96% on room TELEMETRY: Sinus mechanism IMPRESSION: Acute CVA, subcortical left parietal Mental status changes Diabetes Hypertension Dyslipidemia PLAN: Continue current medication regimen No further recommendations from the cardiac standpoint I am dictating on behalf of Dr Arun Juarez's history/physical and assessment/plan. Objective - Vital Signs Vital signs: Vital Signs Temp 97.9 F 07/06/21 03:16 Pulse 77 07/06/21 03:16 Resp 18 07/06/21 03:16 BP 124/68 07/06/21 03:16 Pulse Ox 97 07/06/21 03:16 Intake & Output 07/05/21 07/06/21 07/06/21 18:59 06:59 18:59 Output Total 650 Balance -650 Output: Urine 650 Other: Voiding Method Indwelling Catheter Indwelling Catheter # Em[place] 1 - Labs CBC & Chem 7: 07/01/21 10:28 07/01/21 10:28
--- NOTE | 2021-07-06 15:25 | P.PN ---
Progress Note - Text Progress Note Date: 07/06/21 Chief Complaint: Left-sided weakness This is a 81-year-old patient who follows with Dr. Diego. As per the ER physician patient is brought in for a stroke and the staff and reported that patient had had some slurred speech and a baseline from previous stroke which happened about a month ago this morning patient became much worse and had left- sided weakness. Then per the EMS the left-sided weakness had resolved but continued to have some slurred speech. Some word salad. When the patient arrived to speech was more clear and is felt not to be candidate for TPA. In the ER physician could not find a new deficit. Patient not a very good historian. Does not complain of any vision changes or headache. Moving all his for his limbs. Patient was discharged on May 27 being here for about 4 days with a subacute infarct in the right internal Serial with resultant speech delay and cognitive reasoning deficit, hypertensive urgency. Chronic stable medical conditions include or basal ganglia, hearing difficulties, diabetes mellitus type 2, hyperlipidemia. Patient was discharged to rehab. EMS notes additionally stated: Patient's friend stated that patient showed up to his house confused and appeared that he was unit due to dizziness bands. As per the friend he was not making much sense not acting like his baseline. Patient normally lives alone and is usually able to care for himself. EMS stroke assessment was negative. Patient was initially uncooperative about coming to the hospital. His initial blood pressure recorded was over 200 systolic July 2: Patient has a slow speech. No focal weakness. MRI done today shows subacute old vascular accident./Lacunar infarct in the left amos. Also had an EEG done today. Did not show any epileptiform activity. Questionable delirium too.. July 3: Sitting up in a recliner. Talking with a bit slow. Discussed with Dr. Gregory from neurology. Consult cardiology for ODALIS and possible loop monitor given his computed tomography scan findings. July 04: Patient underwent ODALIS today. No PFO no clot discovered. Discussed with Dr. Jc Juarez from cardio: loop monitor placement July 05: Comfortable. Pending loop monitor placement. No new issues. July 06: As patient became agitated yesterday loop monitor placement was abandoned. We will order event monitor for discharge tomorrow. Follow blood pressures changed to Zestoretic 20/12.5 one tablet twice a day Active Medications Acetaminophen (Acetaminophen Tab 325 Mg Tab) 650 mg PO Q6HR PRN PRN Reason: Mild Pain or Fever > 100.5 Alprazolam (Alprazolam 0.25 Mg Tab) 0.25 mg PO Q6HR PRN PRN Reason: Anxiety Last Admin: 07/05/21 19:35 Dose: 0.25 mg Documented by: Aspirin (Aspirin 81 Mg) 81 mg PO DAILY [facility] Last Admin: 07/06/21 09:12 Dose: 81 mg Documented by: Atorvastatin Calcium (Atorvastatin 40 Mg Tab) 40 mg PO HS [facility] Last Admin: 07/05/21 20:37 Dose: 40 mg Documented by: Calcium Carbonate/Glycine (Calcium Carbonate 500 Mg Chewable) 1,000 mg PO Q4HR PRN PRN Reason: Dyspepsia Folic Acid (Folic Acid 1 Mg Tab) 1 mg PO DAILY@0800 [facility] Last Admin: 07/06/21 09:12 Dose: 1 mg Documented by: Gabapentin (Gabapentin 100 Mg Cap) 100 mg PO BID [facility] Last Admin: 07/06/21 09:12 Dose: 100 mg Documented by: Sodium Chloride (Saline 0.9%) 1,000 mls @ 20 mls/hr IV .Q24H [facility] Last Admin: 07/05/21 09:21 Dose: Not Given Documented by: Insulin Aspart (Insulin Aspart (Novolog) 100 Unit/Ml Vial) 0 unit SQ ACHS [facility]; Protocol Last Admin: 07/06/21 12:00 Dose: Not Given Documented by: Lactulose (Lactulose 20 Gm/30 Ml Cup) 20 gm PO DAILY PRN PRN Reason: Constipation Linagliptin (Linagliptin 5 Mg Tablet) 5 mg PO DAILY@0800 [facility] Last Admin: 07/06/21 09:12 Dose: 5 mg Documented by: Lisinopril (Lisinopril 20 Mg Tab) 20 mg PO DAILY [facility] Last Admin: 07/06/21 09:12 Dose: 20 mg Documented by: Lisinopril (Lisinopril 10 Mg Tab) 10 mg PO DAILY [facility] Last Admin: 07/06/21 09:12 Dose: 10 mg Documented by: Melatonin (Melatonin 3 Mg Tablet) 3 mg PO HS PRN PRN Reason: Insomnia Naloxone HCl (Naloxone 0.4 Mg/Ml 1 Ml Vial) 0.2 mg IV Q2M PRN PRN Reason: Opioid Reversal Ondansetron HCl (Ondansetron 4 Mg/2 Ml Vial) 4 mg IVP Q8HR PRN PRN Reason: Nausea And Vomiting Quetiapine Fumarate (Quetiapine 100 Mg Tab) 100 mg PO HS [facility] Last Admin: 07/05/21 20:37 Dose: 100 mg Documented by: Ticagrelor (Ticagrelor 90 Mg Tab) 90 mg PO BID [facility] Last Admin: 07/06/21 09:12 Dose: 90 mg Documented by: Past medical history to include: 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 Nonsmoking. No alcohol. Family history: Lung cancer, breast cancer, pancreatic cancer, colon cancer Physical examination: VITAL SIGNS: 97.9, 76, 16, 157/80, 96% room air GENERAL: Laying in bed comfortable EYES: Pupils equal. Conjunctiva normal. HEENT: External appearance of nose and ears normal, oral cavity grossly normal. NECK: JVD not raised; masses not palpable. HEART: First and second heart sounds are normal; no edema. LUNGS: Respiratory rate normal; clear to auscultation. ABDOMEN: Soft, nontender, liver spleen not palpable, no masses palpable. PSYCH: Answering simple questions. MUSCULOSKELETAL:No Clubbing/cyanosis;muscles-grossly intact NEUROLOGICAL: [Cranial nerves grossly intact; no facial asymmetry, patient is moving all 4 limbs.. Speech is slow. INVESTIGATIONS, reviewed in the clinical context: ODALIS: Negative EEG: Negative for epilepsy. MRI brain: Left amos lacunar infarct with other findings White count 9.1 hemoglobin 14.3 platelets 216 sodium 140 potassium 4.1 creatinine 1.06 Troponin I less than 0.012 UA: Negative EKG tracing personally reviewed by me: Right bundle-branch block, sinus rhythm Chest x-ray film personally reviewed by me-possible chronic changes CT angiogram head and neck: JVD T changes. Nothing acute CT brain without contrast for TPA: Pain volume loss changes, chronic ischemic changes and scattered chronic infarct. Lacunar infarct cannot be ruled out. Assessment and plan: -acute lacunar infarct/stroke in the left amos, in a patient with a stroke just over a month ago Not a candidate for TPA symptoms improved in the ER. Continue aspirin and Plavix. Lipitor 40 mg daily at bedtime ODALIS: Negative follow-up monitor -Essential hypertension with emergency: Somewhat uncontrolled Increase to Zestoretic 20/12.5 one tablet twice daily -Hyperlipidemia Lipitor 40 mg daily at bedtime -Diabetes mellitus type 2 trajenta 5 mg daily. Follow Accu-Cheks with sliding scale. 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 ODALIS: Unremarkable. We will monitor could not be placed because of patient agitation. Outpatient event monitor. Increase Zestoretic to 20/12.5 twice daily
[2021-07-06] MEDS: SODIUM CHLORIDE 0.9% 1,000 ML IV SCH (16:17)
[2021-07-06 16:23] LABS: Glucose,Whole Blood 96 mg/dL (75-99)
[2021-07-06 19:22] LABS: Glucose,Whole Blood 103 mg/dL (75-99)
[2021-07-06] MEDS: ALPRAZolam 0.25 MG TAB PO PRN (20:13)
[2021-07-06] MEDS: ATORVASTATIN 40 MG TAB PO SCH (20:13)
[2021-07-06] MEDS: LISINOPRIL-HCTZ 20-12.5 MG 1 EACH TAB PO SCH (20:14)
[2021-07-06] MEDS: QUEtiapine 100 MG TAB PO SCH (20:20)
[2021-07-07 05:51] LABS: Glucose,Whole Blood 78 mg/dL (75-99)
[2021-07-07] MEDS: INSULIN ASPART (NovoLOG) 100 UNIT/ML VIAL SQ SCH ×3 (05:51→17:26)
[2021-07-07] MEDS: LISINOPRIL-HCTZ 20-12.5 MG 1 EACH TAB PO SCH (09:14)
[2021-07-07] MEDS: ASPIRIN 81 MG PO SCH (09:14)
[2021-07-07] MEDS: GABAPENTIN 100 MG CAP PO SCH (09:14)
[2021-07-07] MEDS: FOLIC ACID 1 MG TAB PO SCH (09:14)
[2021-07-07] MEDS: TICAGRELOR 90 MG TAB PO SCH (09:14)
[2021-07-07] MEDS: LINAGLIPTIN 5 MG TABLET PO SCH (09:14)
[2021-07-07 11:47] LABS: Glucose,Whole Blood 114 mg/dL (75-99)
[2021-07-07 11:52] VITALS: RESP 18
--- NOTE | 2021-07-07 14:25 | P.DS ---
Providers Date of admission: 07/01/21 13:14 Expected date of discharge: 07/07/21 Attending physician: Roland Vivas Consults: 07/01/21 13:14 Consult Physician Routine Consulting Provider: Fredo Mcfadden Consult Reason/Comments: TIA Do you want consulting provider notified?: Yes 07/03/21 13:31 Consult Physician Routine Consulting Provider: Arun Juarez Consult Reason/Comments: ODALIS poss loop recorder Do you want consulting provider notified?: Yes Primary care physician: [facility] Course: Chief Complaint: Left-sided weakness This is a 81-year-old patient who follows with Dr. Diego. As per the ER physician patient is brought in for a stroke and the staff and reported that patient had had some slurred speech and a baseline from previous stroke which happened about a month ago this morning patient became much worse and had left- sided weakness. Then per the EMS the left-sided weakness had resolved but continued to have some slurred speech. Some word salad. When the patient arrived to speech was more clear and is felt not to be candidate for TPA. In the ER physician could not find a new deficit. Patient not a very good historian. Does not complain of any vision changes or headache. Moving all his for his limbs. Patient was discharged on May 27 being here for about 4 days with a subacute infarct in the right internal Serial with resultant speech delay and cognitive reasoning deficit, hypertensive urgency. Chronic stable medical conditions include or basal ganglia, hearing difficulties, diabetes mellitus type 2, hyperlipidemia. Patient was discharged to rehab. EMS notes additionally stated: Patient's friend stated that patient showed up to his house confused and appeared that he was unit due to dizziness bands. As per the friend he was not making much sense not acting like his baseline. Patient normally lives alone and is usually able to care for himself. EMS stroke assessment was negative. Patient was initially uncooperative about coming to the hospital. His initial blood pressure recorded was over 200 systolic Patient has a slow speech. No focal weakness. MRI : shows subacute old vas cular accident./Lacunar infarct in the left amos. EEG: Did not show any epileptiform activity. Questionable delirium too.. ODALIS : No PFO no clot discovered. : As patient became agitated , loop monitor placement was abandoned. We will order event monitor for discharge Today: Eating well. No new issues. Event monitor for outpatient. Cleared by neurology. Blood pressures running on the higher side. Add amlodipine 2.5 mg daily at bedtime starting tonight. 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 Nonsmoking. No alcohol. Family history: Lung cancer, breast cancer, pancreatic cancer, colon cancer Physical examination: VITAL SIGNS: 98.3, 97, 16, 155/90, 96% room air GENERAL: Laying in bed comfortable EYES: Pupils equal. Conjunctiva normal. HEENT: External appearance of nose and ears normal, oral cavity grossly normal. NECK: JVD not raised; masses not palpable. HEART: First and second heart sounds are normal; no edema. LUNGS: Respiratory rate normal; clear to auscultation. ABDOMEN: Soft, nontender, liver spleen not palpable, no masses palpable. PSYCH: Answering simple questions. MUSCULOSKELETAL:No Clubbing/cyanosis;muscles-grossly intact NEUROLOGICAL: [Cranial nerves grossly intact; no facial asymmetry, patient is moving all 4 limbs.. Speech is slow. INVESTIGATIONS, reviewed in the clinical context: July 07: White count 8.5 hemoglobin 11.1 pressure 4.3 creatinine 1.01 ODALIS: Negative EEG: Negative for epilepsy. MRI brain: Left amos lacunar infarct with other findings White count 9.1 hemoglobin 14.3 platelets 216 sodium 140 potassium 4.1 creatinine 1.06 Troponin I less than 0.012 UA: Negative EKG tracing personally reviewed by me: Right bundle-branch block, sinus rhythm Chest x-ray film personally reviewed by me-possible chronic changes CT angiogram head and neck: JVD T changes. Nothing acute CT brain without contrast for TPA: Pain volume loss changes, chronic ischemic changes and scattered chronic infarct. Lacunar infarct cannot be ruled out. Assessment and plan: -acute lacunar infarct/stroke in the left amos, in a patient with a stroke just over a month ago Not a candidate for TPA symptoms improved in the ER. Continue aspirin and Plavix. Lipitor 40 mg daily at bedtime ODALIS: Negative follow-up monitor. Because of agitation patient cannot Loop monitor. -Essential hypertension with emergency: Upon presentation Zestoretic 20/12.5 tablet twice daily. Amlodipine 2.5 mg daily at bedtime -Hyperlipidemia Lipitor 40 mg daily at bedtime -Diabetes mellitus type 2 trajenta 5 mg daily. Follow Accu-Cheks with sliding scale. 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 Speech therapy Disposition: [facility] Plan - Discharge Summary Discharge Rx Participant: No New Discharge Prescriptions: New Ticagrelor [Brilinta] 90 mg PO BID #42 tab INSULIN ASPART (NovoLOG) [NovoLOG (formulary)] 0 unit SQ ACHS ml Continue lisinopriL [Zestril] 20 mg PO DAILY tab Atorvastatin Calcium [Lipitor] 40 mg PO HS Aspirin 81 mg PO DAILY Linagliptin [Tradjenta] 5 mg PO DAILY@0800 Folic Acid 1 mg PO DAILY@0800 Healthshake 1 dose PO TID-W/MEALS Discontinued Clopidogrel [Plavix] 75 mg PO DAILY@0800 No Action Gabapentin [Neurontin] 100 mg PO BID #60 cap QUEtiapine [SEROquel] 100 mg PO HS Discharge Medication List Aspirin 81 mg PO DAILY 05/27/21 [Rx] Gabapentin [Neurontin] 100 mg PO BID #60 cap 05/27/21 [Rx] lisinopriL [Zestril] 20 mg PO DAILY tab 05/27/21 [Rx] Atorvastatin Calcium [Lipitor] 40 mg PO HS 07/01/21 [History] Folic Acid 1 mg PO DAILY@0800 07/01/21 [History] Healthshake 1 dose PO TID-W/MEALS 07/01/21 [History] Linagliptin [Tradjenta] 5 mg PO DAILY@0800 07/01/21 [History] QUEtiapine [SEROquel] 100 mg PO HS 07/01/21 [History] INSULIN ASPART (NovoLOG) [NovoLOG (formulary)] 0 unit SQ ACHS ml 07/03/21 [Rx] Ticagrelor [Brilinta] 90 mg PO BID #42 tab 07/03/21 [Rx] Follow up Appointment(s)/Referral(s): Michael Diego DO [Primary Care Provider] - 1-2 days Brown Ricks MD [Medical Doctor] - 2 Weeks Activity/Diet/Wound Care/Special Instructions: Event monitor
[2021-07-07 14:38] VITALS: BP 143/74; PULSE 61; TEMP 97.9
[2021-07-07] MEDS: SODIUM CHLORIDE 0.9% 1,000 ML IV SCH (14:42)
== END 2021-07-07 17:55 | DRG 65 ==
LOC: EC 09:49 → 3SCARD 13:14
PROVIDERS: ADMIT Hospitalist; ATTEND Hospitalist
PROC: B246ZZ4 Ultrasonography of Right and Left Heart, Transesophageal (ICD-10-PCS; principal; 2021-07-04 10:20)
DX: I63.81 Other cerebral infarction due to occlusion or stenosis of small artery (principal); I67.4 Hypertensive encephalopathy; I16.1 Hypertensive emergency; G81.94 Hemiplegia, unspecified affecting left nondominant side; I69.322 Dysarthria following cerebral infarction; I69.318 Other symptoms and signs involving cognitive functions following cerebral infarction; G31.84 Mild cognitive impairment of uncertain or unknown etiology; I10 Essential (primary) hypertension; R47.01 Aphasia; E11.9 Type 2 diabetes mellitus without complications; I34.0 Nonrheumatic mitral (valve) insufficiency; K59.00 Constipation, unspecified; I45.10 Unspecified right bundle-branch block; E78.5 Hyperlipidemia, unspecified; F41.9 Anxiety disorder, unspecified; G47.00 Insomnia, unspecified; H91.90 Unspecified hearing loss, unspecified ear; Z79.02 Long term (current) use of antithrombotics/antiplatelets; Z79.4 Long term (current) use of insulin; Z79.82 Long term (current) use of aspirin; Z79.899 Other long term (current) drug therapy; Z80.0 Family history of malignant neoplasm of digestive organs; Z80.1 Family history of malignant neoplasm of trachea, bronchus and lung; Z80.3 Family history of malignant neoplasm of breast; Z85.038 Personal history of other malignant neoplasm of large intestine; Z85.07 Personal history of malignant neoplasm of pancreas; Z85.118 Personal history of other malignant neoplasm of bronchus and lung; Z85.3 Personal history of malignant neoplasm of breast
CPT/HCPCS: 36415; 51798; 70450; 70496; 70498; 70551; 71046; 80053; 80061; 81003; 84484; 85025; 85610; 85730; 93005; 93306; 93312; 93320; 93325; 95816; 96374; 99285

== ENCOUNTER 2021-07-09 12:34 | Inpatient (IN) | payer MEDICARE ==
[2021-07-09] MEDS ORDERED: SODIUM CHLORIDE 0.9% 500 ML 500 ML IV STA (12:36)
[2021-07-09 12:42] LABS: Glucose,Whole Blood 148 mg/dL (75-99)
[2021-07-09 13:16] LABS: HCT 44.9 % (39.0-53.0); HGB 14.7 gm/dL (13.0-17.5); MCH 30.8 pg (25.0-35.0); MCHC 32.8 g/dL (31.0-37.0); MCV 94.1 fL (80.0-100.0); Mean Platelet Volume 7.6; Platelet Count 339 k/uL (150-450); RBC 4.77 m/uL (4.30-5.90); RDW 12.9 % (11.5-15.5); WBC 21.9 k/uL (3.8-10.6)
[2021-07-09 13:19] LABS: Albumin 3.6 g/dL (3.5-5.0); Calcium 8.7 mg/dL (8.4-10.2); Magnesium 2.7 mg/dL (1.6-2.3); Potassium 4.8 mmol/L (3.5-5.1); Total Bilirubin 0.8 mg/dL (0.2-1.3); Total Protein 6.5 g/dL (6.3-8.2)
[2021-07-09 13:21] LABS: INR 0.9 (<1.2); Partial Thromboplastin Time 23.9 sec (22.0-30.0); Prothrombin Time 9.8 sec (9.0-12.0)
--- NOTE | 2021-07-09 13:37 | ED ---
General Adult HPI - General Chief complaint: Syncope Stated complaint: Unresponsive Time Seen by Provider: 07/09/21 12:36 Source: EMS, RN notes reviewed, old records reviewed Mode of arrival: EMS Limitations: altered mental status - History of Present Illness Initial comments: 81 yo male who presented with an episode of unresponsiveness [facility] at [facility]. Patient was transported as priority 1. He was initially hypotensive. He regained his baseline level of consciousness during transport. He was recently admitted to this institution with multiple syncopal episodes. There was concern for arrhythmia at that time. The patient refused a monitor. he denies any pain complaints but history is somewhat limited. - Related Data Home Medications Medication Instructions Recorded Confirmed Folic Acid 1 mg PO DAILY 07/01/21 07/09/21 Healthshake 1 dose PO TID-W/MEALS 07/01/21 07/09/21 Linagliptin [Tradjenta] 5 mg PO DAILY 07/01/21 07/09/21 QUEtiapine [SEROquel] 100 mg PO HS 07/01/21 07/09/21 Atorvastatin [Lipitor] 40 mg PO HS 07/09/21 07/09/21 INSULIN ASPART (NovoLOG) [NovoLOG See Protocol SQ ACHS 07/09/21 07/09/21 (formulary)] Previous Rx's Medication Instructions Recorded Aspirin 81 mg PO DAILY 05/27/21 lisinopriL [Zestril] 20 mg PO DAILY tab 05/27/21 Ticagrelor [Brilinta] 90 mg PO BID #42 tab 07/03/21 Gabapentin [Neurontin] 100 mg PO BID #6 cap 07/07/21 amLODIPine [Norvasc] 2.5 mg PO HS #1 tablet 07/07/21 Allergies Allergy/AdvReac Type Severity Reaction Status Date / Time No Known Allergies Allergy Verified 07/09/21 13:09 Review of Systems ROS Statement: Those systems with pertinent positive or pertinent negative responses have been documented in the HPI. ROS Other: All systems not noted in ROS Statement are negative. Past Medical History Past Medical History: No Reported History Additional Past Medical History / Comment(s): Per sister, denies any medial diagnosis History of Any Multi-Drug Resistant Organisms: Unobtainable Past Surgical History: No Surgical Hx Reported Additional Past Surgical History / Comment(s): Per sister, no surgical interventions, patient did have eye injury at 9 years old with branch from tree Past Anesthesia/Blood Transfusion Reactions: No Reported Reaction Past Psychological History: No Psychological Hx Reported Smoking Status: Never smoker Past Alcohol Use History: None Reported Past Drug Use History: None Reported - Past Family History family Family Medical History: Cancer Additional Family Medical History / Comment(s): Father of lung cancer. Mother had Breast Cancer. Brother of pancreatic cancer. brother of colon cancer. Was the forth child out of sever, oldest living ouf of siblings General Exam Limitations: altered mental status General appearance: alert, in no apparent distress Head exam: Present: atraumatic, normocephalic Eye exam: Present: normal appearance, PERRL ENT exam: Present: normal exam Neck exam: Present: normal inspection. Absent: tenderness, meningismus Respiratory exam: Present: normal lung sounds bilaterally. Absent: respiratory distress, wheezes Cardiovascular Exam: Present: regular rate, normal rhythm GI/Abdominal exam: Present: soft. Absent: distended, tenderness Extremities exam: Present: normal inspection, normal capillary refill. Absent: pedal edema Neurological exam: Present: alert. Absent: oriented X3 (2) Psychiatric exam: Present: normal affect, normal mood Skin exam: Present: warm, dry, intact. Absent: cyanosis, diaphoretic Course Vital Signs 07/09/21 07/09/21 12:36 14:02 Temperature 98.3 F Pulse Rate 91 89 Respiratory 16 18 Rate Blood Pressure 130/69 114/64 O2 Sat by Pulse 96 98 Oximetry EKG Findings - EKG Comments: EKG Findings:: Sinus rhythm, right bundle branch block rate of 88, KS interval 170, QRS duration 134, QTC 4:15, no ST segment elevation, very poor baseline artifact. Medical Decision Making - Medical Decision Making 79-year-old male with syncopal episode from snf. Recent admission to hospital with syncopal episode. There was no preceding symptoms according to paramedics. No fever. Chest x-ray does show the possibility of pneumonia. Head CT was performed and with recent history of CVA, shows right cerebellar infarct. He has a leukocytosis of 21.9. He is in acute kidney renal failure with creatinine of 2.8. He has a mildly elevated troponin. This will be trended. Urinalysis is pending. He has been evaluated by Dr. Vivas emergency department and will admit. - Lab Data Result diagrams: 07/09/21 12:51 07/09/21 12:51 Lab Results 07/09/21 07/09/21 07/09/21 Range/Units 12:36 12:51 12:51 WBC 21.9 H (3.8-10.6) k/uL RBC 4.77 (4.30-5.90) m/uL Hgb 14.7 (13.0-17.5) gm/dL Hct 44.9 (39.0-53.0) % MCV 94.1 (80.0-100.0) fL MCH 30.8 (25.0-35.0) pg MCHC 32.8 (31.0-37.0) g/dL RDW 12.9 (11.5-15.5) % Plt Count 339 (150-450) k/uL MPV 7.6 Neutrophils % (Manual) 88 % Lymphocytes % (Manual) 3 % Monocytes % (Manual) 9 % Eosinophils % (Manual) 1 % Neutrophils # (Manual) 19.27 H (1.3-7.7) k/uL Lymphocytes # (Manual) 0.66 L (1.0-4.8) k/uL Monocytes # (Manual) 1.97 H (0-1.0) k/uL Eosinophils # (Manual) 0.22 (0-0.7) k/uL Nucleated RBCs 0 (0-0) /100 WBC Manual Slide Review Performed RBC Morphology Normal PT 9.8 (9.0-12.0) sec INR 0.9 (<1.2) APTT 23.9 (22.0-30.0) sec Sodium (137-145) mmol/L Potassium (3.5-5.1) mmol/L Chloride (98-107) mmol/L Carbon Dioxide (22-30) mmol/L Anion Gap mmol/L BUN (9-20) mg/dL Creatinine (0.66-1.25) mg/dL Est GFR (CKD-EPI)AfAm (>60 ml/min/1.73 sqM) Est GFR (CKD-EPI)NonAf (>60 ml/min/1.73 sqM) Glucose (74-99) mg/dL POC Glucose (mg/dL) 148 H (75-99) mg/dL POC Glu [employer] Pebbles Gonzalez Calcium (8.4-10.2) mg/dL Magnesium (1.6-2.3) mg/dL Total Bilirubin (0.2-1.3) mg/dL AST (17-59) U/L ALT (4-49) U/L Alkaline Phosphatase (38-126) U/L Troponin I (0.000-0.034) ng/mL Total Protein (6.3-8.2) g/dL Albumin (3.5-5.0) g/dL 07/09/21 07/09/21 Range/Units 12:51 12:51 WBC (3.8-10.6) k/uL RBC (4.30-5.90) m/uL Hgb (13.0-17.5) gm/dL Hct (39.0-53.0) % MCV (80.0-100.0) fL MCH (25.0-35.0) pg MCHC (31.0-37.0) g/dL RDW (11.5-15.5) % Plt Count (150-450) k/uL MPV Neutrophils % (Manual) % Lymphocytes % (Manual) % Monocytes % (Manual) % Eosinophils % (Manual) % Neutrophils # (Manual) (1.3-7.7) k/uL Lymphocytes # (Manual) (1.0-4.8) k/uL Monocytes # (Manual) (0-1.0) k/uL Eosinophils # (Manual) (0-0.7) k/uL Nucleated RBCs (0-0) /100 WBC Manual Slide Review RBC Morphology PT (9.0-12.0) sec INR (<1.2) APTT (22.0-30.0) sec Sodium 141 (137-145) mmol/L Potassium 4.8 (3.5-5.1) mmol/L Chloride 105 (98-107) mmol/L Carbon Dioxide 24 (22-30) mmol/L Anion Gap 12 mmol/L BUN 69 H (9-20) mg/dL Creatinine 2.80 H (0.66-1.25) mg/dL Est GFR (CKD-EPI)AfAm 23 (>60 ml/min/1.73 sqM) Est GFR (CKD-EPI)NonAf 20 (>60 ml/min/1.73 sqM) Glucose 149 H (74-99) mg/dL POC Glucose (mg/dL) (75-99) mg/dL POC Glu Sound Equipment Mechanic ID Calcium 8.7 (8.4-10.2) mg/dL Magnesium 2.7 H (1.6-2.3) mg/dL Total Bilirubin 0.8 (0.2-1.3) mg/dL AST 30 (17-59) U/L ALT 14 (4-49) U/L Alkaline Phosphatase 78 (38-126) U/L Troponin I 0.037 H* (0.000-0.034) ng/mL Total Protein 6.5 (6.3-8.2) g/dL Albumin 3.6 (3.5-5.0) g/dL Disposition Clinical Impression: Syncope and collapse, CVA (cerebral vascular accident), SNEHA (acute kidney injury) Disposition: ADMITTED IP TO THIS [facility] Condition: Stable Is patient prescribed a controlled substance at d/c from ED?: No Referrals: Michael Diego DO [Primary Care Provider] - 1-2 days Decision to Admit Reason: Admit from EC Decision Date: 07/09/21 Decision Time: 14:45
[2021-07-09 13:39] LABS: Eosinophils # (M) 0.22 k/uL (0-0.7); Lymphocytes # (M) 0.66 k/uL (1.0-4.8); Monocytes # (M) 1.97 k/uL (0-1.0); Neutrophils # (M) 19.27 k/uL (1.3-7.7); Neutrophils % (M) 88 %; Nucleated Red Blood Cells 0 /100 WBC (0-0); Total Cells Counted 200
[2021-07-09 13:40] LABS: RBC Morphology Normal
--- NOTE | 2021-07-09 13:41 | CT ---
EXAMINATION TYPE: CT brain wo con DATE OF EXAM: 07/09/2021 COMPARISON: 07/01/2021 HISTORY: Unresponsive, AMS CT DLP: 1170.[address] of the brain was performed. The ventricles, basal cisterns and sulci overlying the cerebral convexities demonstrate mild enlargem ent. Interval development of right cerebellar infarct inferiorly medially. No evidence for hemorrhagic tra nsformation. There is no evidence for intracranial hemorrhage. Remote lacunar infarcts in the bilateral basal gang mic. There is decreased attenuation about the periventricular white matter and deep white matter of both c erebral hemispheres, compatible with chronic small vessel ischemia. Differential diagnosis does inclu de demyelination. No mass effects are seen.No midline shift. Osseous calvarium is intact. If symptoms persist consider MRI. IMPRESSION: 1. Interval development of right cerebellar infarct inferiorly medially. No evidence for hemorrhagic transformation.
--- NOTE | 2021-07-09 14:15 | XR ---
EXAMINATION TYPE: XR chest 1V portable DATE OF EXAM: 07/09/2021 COMPARISON: 07/01/2021 HISTORY: Syncope TECHNIQUE: Single frontal view of the chest is obtained. FINDINGS: There is no focal air space opacity, pleural effusion, or pneumothorax seen. The cardiac silhouette size is within normal limits. The osseous structures are intact. Limited inspiration wit h subsegmental changes at the lung bases. IMPRESSION: Basilar atelectasis favored over pneumonia.
[2021-07-09] MEDS ORDERED: SODIUM CHLORIDE 0.9% 1,000 ML IV SCH (14:30)
[2021-07-09] MEDS ORDERED: NALOXONE 0.4 MG/ML 1 ML VIAL IV PRN (14:40)
[2021-07-09] MEDS ORDERED: ACETAMINOPHEN TAB 325 MG TAB PO PRN (14:40)
[2021-07-09] MEDS ORDERED: ONDANSETRON 4 MG/2 ML VIAL IVP PRN (14:40)
[2021-07-09] MEDS ORDERED: cefTRIAXone IN SWFI 1,000 MG/10 ML SYRINGE IVP STA (14:46)
[2021-07-09 16:22] LABS: Appearance,Urine Turbid (Clear); Bacteria,Urine Occasional /hpf; Bilirubin,Urine Negative (Negative); Blood,Urine Large (Negative); Color,Urine Red; Glucose,Urine (UA) Trace (Negative); Ketones,Urine Negative (Negative); Leukocyte Esterase,Urine Small (Negative); Mucus,Urine Rare /hpf; Nitrite,Urine Negative (Negative); Protein,Urine 1+ (Negative); RBC,Urine >182 /hpf (0-5); Specific Gravity,Urine 1.018 (1.001-1.035); Squamous Epithelial Cell,Urine 1 /hpf (0-4); Urobilinogen,Urine <2.0 mg/dL (<2.0); WBC,Urine 60 /hpf (0-5)
[2021-07-09] MEDS ORDERED: NON FORMULARY DRUG (Healthshake 1 DOSE) PO SCH (17:30)
--- NOTE | 2021-07-09 17:30 | P.HPIM ---
History of Present Illness H&P Date: 07/09/21 Chief Complaint: Past out This is a 81-year-old patient who follows with Dr. Diego. Chronic stable medical conditions include stroke basal ganglia, hearing difficulties, diabetes mellitus type 2, hyperlipidemia. [facility] following left amos lacunar stroke. ODALIS was unremarkable. Loop monitor could not be done as patient was agitated. Patient was discharged with event monitor. Patient is brought in from the [facility] today as during physical therapy patient collapsed and was found to be significant hypotensive. A bit pale. Nose convulsive activity was noted. Patient took a few minutes to come around. Patient's patient is still slow at her baseline from the discharged 2 days ago. No new or any focal weakness. No chest pain or palpitation. Blood pressure by the EMS initially was 98 x 61. 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 Nonsmoking. No alcohol. Family history: Lung cancer, breast cancer, pancreatic cancer, colon cancer Physical examination: VITAL SIGNS: 98.3, 91, 16, 1:30/69, 96% on 4 L GENERAL: BMI 25.8, laying in bed, awake, lethargic. EYES: Pupils equal. Conjunctiva normal. HEENT: External appearance of nose and ears normal, oral cavity grossly normal. NECK: JVD not raised; masses not palpable. HEART: First and second heart sounds are normal; no edema. LUNGS: Respiratory rate normal; clear to auscultation. ABDOMEN: Soft, nontender, liver spleen not palpable, no masses palpable. PSYCH: Able to answer simple questions. MUSCULOSKELETAL:No Clubbing/cyanosis;muscles-grossly intact NEUROLOGICAL: [Cranial nerves grossly intact; no facial asymmetry, patient is moving all 4 limbs.. Slow speech LYMPHATICS: No lymph nodes palpable in neck and axilla INVESTIGATIONS, reviewed in the clinical context: July 09: White count 21.9 hemoglobin 14.7 platelets 339 2141 BUN 69 creatinine 2.8 Troponin I 0.037, 0.20 UA positive for request trace, WBC EKG tracing personally reviewed by me-sinus rhythm. Right bundle-branch block. Nonspecific changes. Chest x-ray film personally reviewed by me-no infiltrates CT brain without contrast: Interval development of right cerebellar infarct inferiorly and medially. July 07: White count 8.5 hemoglobin 11.1 pressure 4.3 creatinine 1.01 From 07/01/2021 admission ODALIS: Negative EEG: Negative for epilepsy. MRI brain: Left amos lacunar infarct with other findings CT angiogram head and neck: JVD T changes. Nothing acute CT brain without contrast for TPA: Pain volume loss changes, chronic ischemic changes and scattered chronic infarct. Lacunar infarct cannot be ruled out. Assessment and plan: -Acute right cerebellar stroke. In a patient who recently had acute lacunar infarct/stroke in the left amos, and also stroke in May 2021. Exline to be embolic Recent ODALIS was negative. Discussed with Dr. Taveras from neurology. Given acute strokes and recurrent in a short span of time. The patient eliquis 5 mg twice a day. Continue aspirin. -Hypotension from dehydration/acute kidney injury IV fluids -Acute kidney injury likely ATN/prerenal Creatinine was 1.06 on July 01. Currently 2.8 DC lisinopril HCl. IV fluids. -Essential hypertension Zestoretic -hold. Amlodipine 2.5 mg daily at bedtime -Hyperlipidemia Lipitor 40 mg daily at bedtime -Diabetes mellitus type 2 Hold trajenta 5 mg daily. Follow Accu-Cheks with sliding scale. -Chronic dysarthria Speech therapy Eliquis 5 mg twice a day. Continue aspirin. Hold Zestoretic. Hold trajenta. Accu-Cheks. Neuro checks. Discussed with Dr. Taveras from neurology. Fall pre cautions. Given the complexity and severity of patient's condition expect the patient to be in the hospital at least for 2 overnights Past Medical History Past Medical History: No Reported History Additional Past Medical History / Comment(s): Per sister, denies any medial diagnosis History of Any Multi-Drug Resistant Organisms: Unobtainable Past Surgical History: No Surgical Hx Reported Additional Past Surgical History / Comment(s): Per sister, no surgical interventions, patient did have eye injury at 9 years old with branch from tree Past Anesthesia/Blood Transfusion Reactions: No Reported Reaction Past Psychological History: No Psychological Hx Reported Smoking Status: Never smoker Past Alcohol Use History: None Reported Past Drug Use History: None Reported - Past Family History family Family Medical History: Cancer Additional Family Medical History / Comment(s): Father of lung cancer. Mother had Breast Cancer. Brother of pancreatic cancer. brother of colon cancer. Was the forth child out of sever, oldest living ouf of siblings Medications and Allergies Home Medications Medication Instructions Recorded Confirmed Type Aspirin 81 mg PO DAILY 05/27/21 07/09/21 Rx lisinopriL [Zestril] 20 mg PO DAILY tab 05/27/21 07/09/21 Rx Folic Acid 1 mg PO DAILY 07/01/21 07/09/21 History Healthshake 1 dose PO TID-W/MEALS 07/01/21 07/09/21 History Linagliptin [Tradjenta] 5 mg PO DAILY 07/01/21 07/09/21 History QUEtiapine [SEROquel] 100 mg PO HS 07/01/21 07/09/21 History Ticagrelor [Brilinta] 90 mg PO BID #42 tab 07/03/21 07/09/21 Rx Gabapentin [Neurontin] 100 mg PO BID #6 cap 07/07/21 07/09/21 Rx amLODIPine [Norvasc] 2.5 mg PO HS #1 tablet 07/07/21 07/09/21 Rx Atorvastatin [Lipitor] 40 mg PO HS 07/09/21 07/09/21 History INSULIN ASPART (NovoLOG) [NovoLOG See Protocol SQ ACHS 07/09/21 07/09/21 History (formulary)] Allergies Allergy/AdvReac Type Severity Reaction Status Date / Time No Known Allergies Allergy Verified 07/09/21 13:09 Physical Exam Vitals: Vital Signs Temp Pulse Resp BP Pulse Ox 07/09/21 14:57 88 18 118/68 94 L 07/09/21 14:02 89 18 114/64 98 07/09/21 12:36 98.3 F 91 16 130/69 96 Intake and Output 07/09/21 07/09/21 07/09/21 06:59 14:59 22:59 Other: Weight 81.647 kg Results CBC & Chem 7: 07/09/21 12:51 07/09/21 12:51 Labs: Abnormal Lab Results - Last 24 Hours (Table) 07/09/21 07/09/21 07/09/21 Range/Units 12:36 12:51 12:51 WBC 21.9 H (3.8-10.6) k/uL Neutrophils # (Manual) 19.27 H (1.3-7.7) k/uL Lymphocytes # (Manual) 0.66 L (1.0-4.8) k/uL Monocytes # (Manual) 1.97 H (0-1.0) k/uL BUN 69 H (9-20) mg/dL Creatinine 2.80 H (0.66-1.25) mg/dL Glucose 149 H (74-99) mg/dL POC Glucose (mg/dL) 148 H (75-99) mg/dL Magnesium 2.7 H (1.6-2.3) mg/dL Troponin I (0.000-0.034) ng/mL Urine Protein (Negative) Urine Glucose (UA) (Negative) Urine Blood (Negative) Ur Leukocyte Esterase (Negative) Urine RBC (0-5) /hpf Urine WBC (0-5) /hpf Urine Bacteria (None) /hpf Urine Mucus (None) /hpf 07/09/21 07/09/21 Range/Units 12:51 15:55 WBC (3.8-10.6) k/uL Neutrophils # (Manual) (1.3-7.7) k/uL Lymphocytes # (Manual) (1.0-4.8) k/uL Monocytes # (Manual) (0-1.0) k/uL BUN (9-20) mg/dL Creatinine (0.66-1.25) mg/dL Glucose (74-99) mg/dL POC Glucose (mg/dL) (75-99) mg/dL Magnesium (1.6-2.3) mg/dL Troponin I 0.037 H* (0.000-0.034) ng/mL Urine Protein 1+ H (Negative) Urine Glucose (UA) Trace H (Negative) Urine Blood Large H (Negative) Ur Leukocyte Esterase Small H (Negative) Urine RBC >182 H (0-5) /hpf Urine WBC 60 H (0-5) /hpf Urine Bacteria Occasional H (None) /hpf Urine Mucus Rare H (None) /hpf
[2021-07-09] MEDS: SODIUM CHLORIDE 0.9% 1,000 ML IV SCH ×2 (19:46→19:48)
[2021-07-09] MEDS ORDERED: APIXABAN 5 MG TAB PO SCH (21:00)
[2021-07-09 21:04] LABS: Glucose,Whole Blood 145 mg/dL (75-99)
[2021-07-09] MEDS: INSULIN ASPART (NovoLOG) 100 UNIT/ML VIAL SQ SCH (21:22)
[2021-07-09 22:21] LABS: Glucose,Whole Blood 109 mg/dL (75-99)
[2021-07-09] MEDS: amLODIPine 2.5 MG TAB PO SCH (22:28)
[2021-07-09] MEDS: ATORVASTATIN 40 MG TAB PO SCH (22:28)
[2021-07-09] MEDS: QUEtiapine 100 MG TAB PO SCH (22:29)
[2021-07-10 05:48] LABS: Glucose,Whole Blood 111 mg/dL (75-99)
[2021-07-10] MEDS: INSULIN ASPART (NovoLOG) 100 UNIT/ML VIAL SQ SCH ×3 (06:14→17:01)
[2021-07-10 08:08] LABS: Calcium 8.2 mg/dL (8.4-10.2); Potassium 4.2 mmol/L (3.5-5.1)
--- NOTE | 2021-07-10 08:43 | P.CNNES ---
History of Present Illness Consult date: 07/09/21 Requesting physician: Roland Vivas Reason for Consult: CVA History of Present Illness: Patient is a 81-year-old male with history of recent ischemic strokes, came to the hospital with another stroke symptoms. Patient is a poor historian, not able to provide any history. According to EMS flow sheet when they arrived, patient was laying in Trendelenburg position. Staff mentioned that patient became unresponsive during physical therapy. The staff laid the patient down on the bed and was unable to palpate a radial pulse. They did get a systolic blood pressure in the 70s. Patient was breathing however snoring respiration. Patient's skin was pink warm and clammy. Patient's blood glucose was 282. EKG showed normal sinus rhythm. IV fluids were started. During transport patient became awake and was talking. Upon arrival to the ED the patient's status improved. Patient was noted to be alert and confused which is normal for him. Initial vitals at the scene was 98/61, pulse rate 90, respirations 16 and saturation 91%. Repeat blood pressure was 121/55 with pulse of 90. Saturation 94%. Patient's blood test shows WBC 21.9 hemoglobin 14.7 platelets 339. PT/PTT normal, electrolytes normal, BUN 69, creatinine 2.80. Hepatic panel is normal, troponin is mildly elevated 0.037. UA shows small amount of leukocyte esterase and 60 WBC. EKG shows sinus rhythm. Right bundle-branch block. Chest x-ray showed basilar atelectasis is favored over pneumonia. Patient at present denies any headache, no chest pain, this complained of some epigastric discomfort. Patient has moderate dysarthria. Patient is very slow mentation, prolonged latency time to answer questions. He is very hard of hearing. Review of records: Patient presented on 05/24/2021 with altered mental status, difficulty speaking and some slurring of speech. He was diagnosed with acute to subacute ischemic stroke involving the right rousseau radiata. Patient was placed on dual antiplatelet medication aspirin 81 mg and Plavix 75 mg. It was recommended to stay on both medications for 21 days and then stop Plavix and continue aspirin indefinitely. Patient's B12 was borderline to 75. Patient was given B12 injection 1000 g IM for 2 days followed by 1000 g orally daily. Folic acid 1 mg daily. Patient presented on 07/01/2021 for worsening slurred speech and left-sided weakness. He was diagnosed with subacute stroke over the subcortical left parietal region. Patient had uncontrolled hypertension at that time. Patient was started on aspirin 81 mg and Brilinta 90 mg twice a day. ODALIS was negative. EEG showed no epileptiform discharges. I spent at least 20-25 minutes time in reviewing previous records, previous images in comparing with the current ones. This time was spent beyond the p atient encounter time. Review of Systems Otherwise as mentioned above in HPI. ROS unobtainable: due to mental status Past Medical History Past Medical History: No Reported History Additional Past Medical History / Comment(s): Per sister, denies any medial diagnosis History of Any Multi-Drug Resistant Organisms: Unobtainable Past Surgical History: No Surgical Hx Reported Additional Past Surgical History / Comment(s): Per sister, no surgical interventions, patient did have eye injury at 9 years old with branch from tree Past Anesthesia/Blood Transfusion Reactions: No Reported Reaction Past Psychological History: No Psychological Hx Reported Smoking Status: Never smoker Past Alcohol Use History: None Reported Past Drug Use History: None Reported - Past Family History family Family Medical History: Cancer Additional Family Medical History / Comment(s): Father of lung cancer. Mother had Breast Cancer. Brother of pancreatic cancer. brother of colon cancer. Was the forth child out of sever, oldest living ouf of siblings Medications and Allergies Home Medications Medication Instructions Recorded Confirmed Type Aspirin 81 mg PO DAILY 05/27/21 07/09/21 Rx lisinopriL [Zestril] 20 mg PO DAILY tab 05/27/21 07/09/21 Rx Folic Acid 1 mg PO DAILY 07/01/21 07/09/21 History Healthshake 1 dose PO TID-W/MEALS 07/01/21 07/09/21 History Linagliptin [Tradjenta] 5 mg PO DAILY 07/01/21 07/09/21 History QUEtiapine [SEROquel] 100 mg PO HS 07/01/21 07/09/21 History Ticagrelor [Brilinta] 90 mg PO BID #42 tab 07/03/21 07/09/21 Rx Gabapentin [Neurontin] 100 mg PO BID #6 cap 07/07/21 07/09/21 Rx amLODIPine [Norvasc] 2.5 mg PO HS #1 tablet 07/07/21 07/09/21 Rx Atorvastatin [Lipitor] 40 mg PO HS 07/09/21 07/09/21 History INSULIN ASPART (NovoLOG) [NovoLOG See Protocol SQ ACHS 07/09/21 07/09/21 History (formulary)] Allergies Allergy/AdvReac Type Severity Reaction Status Date / Time No Known Allergies Allergy Verified 07/09/21 13:09 Physical Examination - Vital Signs Vital Signs: Vital Signs Temp Pulse Resp BP Pulse Ox 07/09/21 14:57 88 18 118/68 94 L 07/09/21 14:02 89 18 114/64 98 07/09/21 12:36 98.3 F 91 16 130/69 96 Intake and Output 07/09/21 07/09/21 07/09/21 06:59 14:59 22:59 Other: Weight 81.647 kg Patient is an elderly male, who is in no acute respiratory distress. Patient is alert awake, appears slightly encephalopathic, slow mentation, appears slightly spacey. Patient states is the month of , could not tell the year. He could not tell the city he lives in although he knows he is in [facility]. Patient's speech has moderate dysarthria. He is able to name objects like pen and eyeglasses, and can repeat. No obvious aphasia. Attention, concentration and fund of knowledge is quite limited. On cranial examination, pupils are equal, round and reacting to light, visual farrell are full on confrontation, extraocular muscles at times appeared to have slight restriction of gaze on the right, but later he was able to bring gaze to all sides. There is no nystagmus. Face is symmetric, tongue protrudes to the midline. Palatal elevation and sensation normal, hearing is moderate to sev erely decreased and shoulder shrug normal, facial sensation normal. Shoulder shrug normal. On muscle strength testing, there is no pronator drift and the strength is normal in arms distally and proximally. In the lower extremities(right/left) hip flexion 5-/5, ankle dorsiflexion 5/5, plantarflexion 5/5. Deep tendon reflexes are symmetric, 1 at the biceps, 0 brachioradialis, 2 at the knees 1 ankles and plantars are downgoing bilaterally. Sensory to touch is equal with no neglect. Cerebellar function showed no ataxia for [id number] testing. Tone and bulk of muscles normal. Gait not checked. On general examination, there is no carotid bruit or murmur, S1-S2 audible. Abdomen is soft nontender. No organomegaly. Bowel sounds present. Chest is clear to auscultation. Peripheral pulses are present. No peripheral edema. Results - Laboratory Findings CBC and BMP: 07/09/21 12:51 07/09/21 12:51 Abnormal Lab Findings: Abnormal Labs 07/09/21 07/09/21 07/09/21 12:36 12:51 12:51 WBC 21.9 H Neutrophils # (Manual) 19.27 H Lymphocytes # (Manual) 0.66 L Monocytes # (Manual) 1.97 H BUN 69 H Creatinine 2.80 H Glucose 149 H POC Glucose (mg/dL) 148 H Magnesium 2.7 H Troponin I 07/09/21 12:51 WBC Neutrophils # (Manual) Lymphocytes # (Manual) Monocytes # (Manual) BUN Creatinine Glucose POC Glucose (mg/dL) Magnesium Troponin I 0.037 H* Assessment and Plan Assessment: * Recurrent ischemic strokes (third event now). Patient had presented with a syncopal spell, but computed tomography scan of the head revealed an acute isc hemic stroke involving the right medial cerebellar hemisphere. This is new as compared to the recent MRI of brain from 07/02/2021. * Hypertension * Diabetes * Vascular dementia. * History of B12 deficiency * Hard of hearing Plan: * Patient is presenting with recurrent ischemic strokes. The current stroke is clearly embolic in nature. His previous strokes also appeared embolic in nature. Patient has failed all combinations of antiplatelet medications. Patient will be started empirically on Eliquis 2.5 mg twice a day for further stroke prevention. * Suggest cardiology consultation for a loop recorder, rule out paroxysmal atrial fibrillation. * Patient already had extensive workup performed for ischemic strokes as mentioned below. No need to repeat. * ODALIS performed on 07/04/2021 revealed no PFO. No clot in the left atrial appendage, normal valvular function, except trace to mild MR. Preserved LV function. Moderate plaque in the aorta. Continue current medical therapy. * CTA of head and neck on 07/01/2021 shows no significant abnormality is seen. No evidence of dissection, aneurysm, or embolus. No significant stenosis of the proximal ICA. * Patient's hemoglobin A1c 6.51 05/24/2021 * Lipid panel with cholesterol 113, LDL 55, HDL 42 and triglycerides 79.3. C ontinue Lipitor 40 mg. * B12 275, folate 10.5. Patient has received B12 injections on the last admis [place]. Patient also on folic acid. * PT OT, speech therapy * Suggest patient follow-up with neuro intervention as outpatient to consider cerebral angiogram, rule out [employer] vasculitis. * Neurology will follow. Discussed with Dr. Vivas in detail. Time with Patient: Greater than 30
[2021-07-10] MEDS ORDERED: ASPIRIN 81 MG PO SCH (09:00)
[2021-07-10] MEDS: PANTOPRAZOLE 40 MG/10 ML VIAL IV SCH (09:53)
[2021-07-10] MEDS: FOLIC ACID 1 MG TAB PO SCH (09:56)
[2021-07-10] MEDS: APIXABAN 2.5 MG TABLET PO SCH ×2 (09:56→20:59)
[2021-07-10] MEDS: ASPIRIN 81 MG PO SCH (09:56)
--- NOTE | 2021-07-10 11:15 | P.CRDCN ---
History of Present Illness History of present illness: This is a 82 year old male with a past medical history of hypertension, recent subacute CVA over the subcortical left parietal, CVA in 05/2021, history of bilateral basal ganglia ischemic stroke. He does not follow with a spud grader that is known. He presents via EMS from nursing facility for alerted mental status and possible syncope. Per the EMS report "patient was found lying in bed in trendelenburg position, staff stated patient became unresponsive during physical therapy. Systolic BP was in the 70s, patient was breathing, and snoring, 12 lead EKG performed revealed NSR. IV was established, patient was give 0.9NS and during transport patient became awake, alert and was talking, upon arrival to [facility], patient became more alert but confused." Patient seen and examined at bedside, he is lethargic, difficult to arouse. He is arousal to stimuli. He is unable to state why he is in the hospital. Unable to give accurate history or review of systems. His vital signs are stable. He is in sinus mechanism. Maintaining oxygenation saturations on room air. Brain CT revealed interval development of right cerebral infarct inferiorly medially. No evidence of hemorrhagic transformation. Patient was admitted from 07/01/2021-07/07/2021 for ischemic stroke. Patient under went ODALIS 07/04/2021 which revealed No PFO, No clot in the left atrial appendage, Normal valvular function, except trace to mild mitral regurgitation, Preserved LV function, Moderate plaque in the aorta. Loop recorder was requested per Nephrology, patient seen by Dr. Juarez, per Dr. Juarez patient felt to be not a candidate for loop recorder due to mental status, combative at that time, unable to complete loop recorder procedure safely, and quality of life of the patient. DIAGNOSTICS -EKG via EMS revealed sinus rhythm HR 89, right bundle branch block, no acute ST-T wave abnormalities. EKG on admission revealed sinus rhythm HR 88, right bundle branch block, no acute ST-T wave abnormalities -Telemetry tracings indicate maintaining sinus mechanism -Echo 07/03/2021 EF >55% -Chest xray no acute heart failure, basilar atelectasis -Laboratory reviewed, sodium 143, potassium 4.2, BUN 71, serum creatinine 1.8, troponin 0.037, 0.02, 0.017, WBC 21, hemoglobin 14.7, platelets 339 -Current home medications include lisinopril 20 mg daily, amlodipine 2.5 mg daily, Brilinta 90 mg twice a day, aspirin 81 mg daily, atorvastatin 40 mg REVIEW OF SYSTEMS At the time of my exam: Unable to complete accurate review of systems due to mental status PHYSICAL EXAMINATION Blood pressure 100/63, heart rate 80, afebrile oxygen saturation is 96% on room air CONSTITUTIONAL: No apparent distress. HEENT: Head is normocephalic. Pupils are equal, round. Sclerae anicteric. Mucous membranes of the mouth are moist. No JVD. No carotid bruit. CHEST EXAMINATION: Lungs are clear to auscultation. No chest wall tenderness is noted on palpation or with deep breathing. HEART EXAMINATION: Regular rate and rhythm. S1, S2 heard. No murmurs, gallops or rub. ABDOMEN: Soft, nontender. Positive bowel sounds. EXTREMITIES: 2+ peripheral pulses, no lower extremity edema and no calf tenderness. NEUROLOGIC EXAMINATION: Patient is awake, alert and oriented x3. ASSESSMENT Recurrent ischemic strokes Acute kidney injury, likely prerenal due to dehydration, improved with IV Fluids Hypertension Dementia PLAN -Per neurology and discussion with primary- they're recommend starting Eliquis for further stroke prevention. Decrease Eliquis to 2.5mg BID due to age and renal function, if renal function improves can increase to Eliquis 5mg BID -Neurology recommended loop recorder insertion, discussed with Dr. Juarez, at this time due to mental status and quality of life/prognosis Dr. Juarez recommends treating medically and not inserting a loop recorder -Patient also on statin and amlodipine -No further changes at this time, from a cardiology perspective. Nurse practitioner note has been reviewed by physician. Signing provider agrees with the documented findings, assessment, and plan of care. Past Medical History Past Medical History: No Reported History Additional Past Medical History / Comment(s): Per sister, denies any medial diagnosis History of Any Multi-Drug Resistant Organisms: Unobtainable Past Surgical History: No Surgical Hx Reported Additional Past Surgical History / Comment(s): Per sister, no surgical interventions, patient did have eye injury at 9 years old with branch from tree Past Anesthesia/Blood Transfusion Reactions: No Reported Reaction Past Psychological History: No Psychological Hx Reported Smoking Status: Never smoker Past Alcohol Use History: None Reported Additional Past Alcohol Use History / Comment(s): Per friends and sister, denies use, patient denies uses aswell Past Drug Use History: None Reported - Past Family History family Family Medical History: Cancer Additional Family Medical History / Comment(s): Father of lung cancer. Mother had Breast Cancer. Brother of pancreatic cancer. brother of colon cancer. Was the forth child out of sever, oldest living ouf of siblings Medications and Allergies Home Medications Medication Instructions Recorded Confirmed Type Aspirin 81 mg PO DAILY 05/27/21 07/09/21 Rx lisinopriL [Zestril] 20 mg PO DAILY tab 05/27/21 07/09/21 Rx Folic Acid 1 mg PO DAILY 07/01/21 07/09/21 History Healthshake 1 dose PO TID-W/MEALS 07/01/21 07/09/21 History Linagliptin [Tradjenta] 5 mg PO DAILY 07/01/21 07/09/21 History QUEtiapine [SEROquel] 100 mg PO HS 07/01/21 07/09/21 History Ticagrelor [Brilinta] 90 mg PO BID #42 tab 07/03/21 07/09/21 Rx Gabapentin [Neurontin] 100 mg PO BID #6 cap 07/07/21 07/09/21 Rx amLODIPine [Norvasc] 2.5 mg PO HS #1 tablet 07/07/21 07/09/21 Rx Atorvastatin [Lipitor] 40 mg PO HS 07/09/21 07/09/21 History INSULIN ASPART (NovoLOG) [NovoLOG See Protocol SQ ACHS 07/09/21 07/09/21 History (formulary)] Allergies Allergy/AdvReac Type Severity Reaction Status Date / Time No Known Allergies Allergy Verified 07/09/21 13:09 Physical Exam Vitals: Vital Signs Temp Pulse Pulse Resp BP BP Pulse Ox 07/10/21 04:00 97.3 F L 93 18 114/66 95 07/10/21 02:00 70 18 07/10/21 00:00 98 F 70 18 126/66 92 L 07/09/21 21:24 76 22 110/87 92 L 07/09/21 19:51 86 18 124/83 9 L 07/09/21 14:57 88 18 118/68 94 L 07/09/21 14:02 89 18 114/64 98 07/09/21 12:36 98.3 F 91 16 130/69 96 Intake and Output 07/09/21 07/10/21 07/10/21 22:59 06:59 14:59 Other: Voiding Method Diaper # Voids 2 Weight 81.647 kg Results 07/09/21 12:51 07/10/21 07:45 Cardiac Enzymes 07/09/21 07/09/21 07/09/21 Range/Units 12:51 12:51 15:33 AST 30 (17-59) U/L Troponin I 0.037 H* 0.020 (0.000-0.034) ng/mL 07/09/21 Range/Units 18:47 AST (17-59) U/L Troponin I 0.017 (0.000-0.034) ng/mL Coagulation 07/09/21 Range/Units 12:51 PT 9.8 (9.0-12.0) sec APTT 23.9 (22.0-30.0) sec CBC 07/09/21 Range/Units 12:51 WBC 21.9 H (3.8-10.6) k/uL RBC 4.77 (4.30-5.90) m/uL Hgb 14.7 (13.0-17.5) gm/dL Hct 44.9 (39.0-53.0) % Plt Count 339 (150-450) k/uL Comprehensive Metabolic Panel 07/09/21 07/10/21 Range/Units 12:51 07:45 Sodium 141 143 (137-145) mmol/L Potassium 4.8 4.2 (3.5-5.1) mmol/L Chloride 105 111 H (98-107) mmol/L Carbon Dioxide 24 24 (22-30) mmol/L BUN 69 H 71 H (9-20) mg/dL Creatinine 2.80 H 1.83 H (0.66-1.25) mg/dL Glucose 149 H 124 H (74-99) mg/dL Calcium 8.7 8.2 L (8.4-10.2) mg/dL AST 30 (17-59) U/L ALT 14 (4-49) U/L Alkaline Phosphatase 78 (38-126) U/L Total Protein 6.5 (6.3-8.2) g/dL Albumin 3.6 (3.5-5.0) g/dL Current Medications Generic Name Dose Route Start Last Admin Trade Name Freq PRN Reason Stop Dose Admin Acetaminophen 650 mg 07/09/21 14:40 Acetaminophen Tab 325 Mg Tab PO Q6HR PRN Mild Pain or Fever > 100.5 Amlodipine Besylate 2.5 mg 07/09/21 21:00 07/09/21 22:28 Amlodipine 2.5 Mg Tab PO 2.5 mg HS [place] Administration Apixaban 2.5 mg 07/10/21 09:00 Apixaban 2.5 Mg Tablet PO BID [facility] Protocol Aspirin 81 mg 07/10/21 09:00 Aspirin 81 Mg PO DAILY [facility] Atorvastatin Calcium 40 mg 07/09/21 21:00 07/09/21 22:28 Atorvastatin 40 Mg Tab PO 40 mg HS [place] Administration Folic Acid 1 mg 07/10/21 09:00 Folic Acid 1 Mg Tab PO DAILY [facility] Sodium Chloride 1,000 mls @ 130 mls/hr 07/09/21 17:30 07/09/21 19:48 Saline 0.9% IV 130 mls/hr .[id number] [place] Administration Insulin Aspart 0 unit 07/09/21 17:30 07/10/21 06:14 Insulin Aspart (Novolog) 100 Unit/Ml Vial SQ Not Given AC-TID [facility] Protocol Naloxone HCl 0.2 mg 07/09/21 14:40 Naloxone 0.4 Mg/Ml 1 Ml Vial IV Q2M PRN Opioid Reversal Ondansetron HCl 4 mg 07/09/21 14:40 Ondansetron 4 Mg/2 Ml Vial IVP Q8HR PRN Nausea And Vomiting Pantoprazole Sodium 40 mg 07/10/21 09:00 Pantoprazole 40 Mg/10 Ml Vial IV DAILY [facility] Quetiapine Fumarate 100 mg 07/09/21 21:00 07/09/21 22:29 Quetiapine 100 Mg Tab PO 100 mg HS [facility] Administration Intake and Output 07/09/21 07/10/21 07/10/21 22:59 06:59 14:59 Other: Voiding Method Diaper # Voids 2 Weight 81.647 kg 07/09/21 12:51 07/10/21 07:45
[2021-07-10 11:39] LABS: Glucose,Whole Blood 94 mg/dL (75-99)
[2021-07-10] MEDS ORDERED: LIDOCAINE 1% INJ 10MG/ML (20 ML MDV) ONE (13:49)
--- NOTE | 2021-07-10 14:21 | P.PN ---
Progress Note - Text Progress Note Date: 07/10/21 Chief Complaint: Past out This is a 81-year-old patient who follows with Dr. Diego. Chronic stable medical conditions include stroke basal ganglia, hearing difficulties, diabetes mellitus type 2, hyperlipidemia. Patient [facility] [place] following left amos lacunar stroke. ODALIS was unremarkable. Loop monitor could not be done as patient was agitated. Patient was discharged with event monitor. Patient is brought in from the [facility] today as during physical therapy patient collapsed and was found to be significant hypotensive. A bit pale. No convulsive activity was noted. Patient took a few minutes to come around. Patient's patient is still slow at her baseline from the discharged 2 days ago. No new or any focal weakness. No chest pain or palpitation. Blood pressure by the EMS initially was 98 x 61. Admitted with acute right cerebellar stroke. Started on eliquis given recent 2 stroke after discussion with Dr. Taveras. Also acute kidney injury. Zestoretic discontinued. IV fluids. Creatinine slowly coming down July 10: Patient with lethargic. Not really eating. Speaking slowly. Speech is slurred. PTOT on the case. Requiring full assist. Patient also does not have sitting balance. Tending to fall on the left. Patient not having IV access. Nurse's 10 on for the same. Active Medications Acetaminophen (Acetaminophen Tab 325 Mg Tab) 650 mg PO Q6HR PRN PRN Reason: Mild Pain or Fever > 100.5 Amlodipine Besylate (Amlodipine 2.5 Mg Tab) 2.5 mg PO [facility] Last Admin: 07/09/21 22:28 Dose: 2.5 mg Documented by: Apixaban (Apixaban 2.5 Mg Tablet) 2.5 mg PO BID [facility]; Protocol Last Admin: 07/10/21 09:56 Dose: 2.5 mg Documented by: Aspirin (Aspirin 81 Mg) 81 mg PO DAILY [facility] Last Admin: 07/10/21 09:56 Dose: 81 mg Documented by: Atorvastatin Calcium (Atorvastatin 40 Mg Tab) 40 mg PO [facility] Last Admin: 07/09/21 22:28 Dose: 40 mg Documented by: Folic Acid (Folic Acid 1 Mg Tab) 1 mg PO DAILY [facility] Last Admin: 07/10/21 09:56 Dose: 1 mg Documented by: Sodium Chloride (Saline 0.9%) 1,000 mls @ 130 mls/hr IV .Q7H42M [facility] Last Admin: 07/09/21 19:48 Dose: 130 mls/hr Documented by: Insulin Aspart (Insulin Aspart (Novolog) 100 Unit/Ml Vial) 0 unit SQ AC-TID [facility]; Protocol Last Admin: 07/10/21 12:33 Dose: Not Given Documented by: Naloxone HCl (Naloxone 0.4 Mg/Ml 1 Ml Vial) 0.2 mg IV Q2M PRN PRN Reason: Opioid Reversal Ondansetron HCl (Ondansetron 4 Mg/2 Ml Vial) 4 mg IVP Q8HR PRN PRN Reason: Nausea And Vomiting Pantoprazole Sodium (Pantoprazole 40 Mg/10 Ml Vial) 40 mg IV DAILY [facility] Quetiapine Fumarate (Quetiapine 100 Mg Tab) 100 mg PO HS [facility] Last Admin: 07/09/21 22:29 Dose: 100 mg Documented by: Past medical history to include: 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 Nonsmoking. No alcohol. Family history: Lung cancer, breast cancer, pancreatic cancer, colon cancer Physical examination: VITAL SIGNS: 97.6, 70, 18, 137/87, 95% on room air GENERAL:reclining in bed, lethargic. EYES: Pupils equal. Conjunctiva normal. HEENT: External appearance of nose and ears normal, oral cavity grossly normal. NECK: JVD not raised; masses not palpable. HEART: First and second heart sounds are normal; no edema. LUNGS: Respiratory rate normal; clear to auscultation. ABDOMEN: Soft, nontender, liver spleen not palpable, no masses palpable. PSYCH: Unable to assess. MUSCULOSKELETAL:No Clubbing/cyanosis;muscles-grossly intact NEUROLOGICAL: [Cranial nerves grossly intact; no facial asymmetry, patient is moving all 4 limbs.. Slurred slow speech. Difficulty with coordination. Poor sitting balance INVESTIGATIONS, reviewed in the clinical context: July 10: Potassium 4.2 BUN 71 creatinine 1.83 July 09: White count 21.9 hemoglobin 14.7 platelets 339 2141 BUN 69 creatinine 2.8 Troponin I 0.037, 0.20 UA positive for request trace, WBC EKG tracing personally reviewed by me-sinus rhythm. Right bundle-branch block. Nonspecific changes. Chest x-ray film personally reviewed by me-no infiltrates CT brain without contrast: Interval development of right cerebellar infarct inferiorly and medially. July 07: White count 8.5 hemoglobin 11.1 pressure 4.3 creatinine 1.01 From 07/01/2021 admission ODALIS: Negative EEG: Negative for epilepsy. MRI brain: Left amos lacunar infarct with other findings CT angiogram head and neck: JVD T changes. Nothing acute CT brain without contrast for TPA: Pain volume loss changes, chronic ischemic changes and scattered chronic infarct. Lacunar infarct cannot be ruled out. Assessment and plan: -Acute right cerebellar stroke. In a patient who recently had acute lacunar infarct/stroke in the left amos, and also stroke in May 2021. [place] to be embolic: Slow to respond Recent ODALIS was negative. Discussed with Dr. Taveras from neurology. Given acute strokes and recurrent in a short span of time. eliquis 5 mg twice a day. Continue aspirin. -Hypotension from dehydration/acute kidney injury: Slow to respond IV fluids -Severe truncal ataxia from cerebral stroke Fall precautions -Acute kidney injury likely ATN/prerenal: Slow to respond Creatinine was 1.06 on July 01. On admission 2.8. DC lisinopril HCl. IV fluids. -Essential hypertension Zestoretic -hold. Amlodipine 2.5 mg daily at bedtime -Hyperlipidemia Lipitor 40 mg daily at bedtime -Diabetes mellitus type 2, on oral hypoglycemic Hold trajenta 5 mg daily. Follow Accu-Cheks with sliding scale. -Acute on Chronic dysarthria, secondary to cerebellar stroke : Slow to respond Speech therapy Eliquis 5 mg twice a day. aspirin. Accu-Cheks. Neuro checks. Nurse is ranging from IV access. Speech therapy.. Diet. Aspiration precautions.
--- NOTE | 2021-07-10 15:17 | IR ---
EXAMINATION TYPE: IR cvc insert >=5 years DATE OF EXAM: 07/10/2021 COMPARISON: NONE CLINICAL HISTORY: Cerebrovascular accident Needs long-term intravenous access for therapy PROCEDURE: Hand hygiene obtained with soap and water and alcohol-based hand rub. After informed consent, the skin overlying the right basilic vein was localized with ultrasound and n oted to be compressible and patent. An ultrasound image was obtained and submitted on the patient's chart. The overlying skin was prepped and draped and Lidocaine was used for local anesthesia. A ski n lianne was made with a scalpel. Access was gained to the vein under ultrasound guidance with a 21 ga uge needle and a 0.018 inch wire was advanced. Access site was dilated with Peel-Away sheath and cat heter tailored to the appropriate length and advanced such that the distal tip is at the cavoatrial j unction. Spot image was obtained verifying placement. Catheter was fixed to the skin and a sterile dressing was placed following hemostasis. Catheter was aspirated and flushed with saline. Patient w as discharged in stable condition without complication.Maximal barrier technique is utilized. Ultras ound image is documented on the chart. Ultrasound used with sterile technique. Fluoro time and fluoroscopic images submitted to document procedure: 0.1 minutes fluoroscopy time, 10 intraoperative images document the procedure IMPRESSION: STATUS POST ULTRASOUND AND FLUOROSCOPIC GUIDED PICC LINE PLACEMENT, READY FOR USE. THIS PROCEDURE WAS PERFORMED BY THE UNDERSIGNED.
[2021-07-10 16:33] LABS: Glucose,Whole Blood 115 mg/dL (75-99)
[2021-07-10] MEDS: SODIUM CHLORIDE 0.9% 1,000 ML IV SCH (17:53)
[2021-07-10 20:43] LABS: Glucose,Whole Blood 114 mg/dL (75-99)
[2021-07-10] MEDS: QUEtiapine 100 MG TAB PO SCH (20:59)
[2021-07-10] MEDS: ATORVASTATIN 40 MG TAB PO SCH (20:59)
[2021-07-10] MEDS: amLODIPine 2.5 MG TAB PO SCH (20:59)
[2021-07-11 06:38] LABS: Glucose,Whole Blood 111 mg/dL (75-99)
--- NOTE | 2021-07-11 09:25 | P.PN ---
Subjective Progress Note Date: 07/10/21 Patient was seen for a follow-up. Patient is laying comfortably in the bed. He just came back from PICC line placement. Patient denies headache, denies any numbness or tingling. Objective - Vital Signs Vital signs: Vital Signs Temp 97.5 F L 07/11/21 07:45 Pulse 70 07/10/21 12:00 Resp 16 07/11/21 07:45 BP 148/73 07/11/21 07:45 Pulse Ox 95 07/11/21 07:45 Intake & Output 07/10/21 07/11/21 07/11/21 18:59 06:59 18:59 Intake Total 778 Output Total 800 Balance 778 -800 Weight 62 kg Intake: Oral 778 Output: Urine 800 Other: Voiding Method Diaper # Voids 1 1 - Exam Patient is alert and awake in no distress. He is slow to respond. Speech is moderately dysarthric. No aphasia. Patient can name and repeat. Pupils are round and reacting. Visual farrell are full and face is symmetric. Muscle strength appears equal. - Labs CBC & Chem 7: 07/09/21 12:51 07/10/21 07:45 Labs: Abnormal Lab Results - Last 24 Hours (Table) 07/10/21 07/10/21 07/11/21 Range/Units 16:30 20:40 06:34 POC Glucose (mg/dL) 115 H 114 H 111 H (75-99) mg/dL Microbiology - Last 24 Hours (Table) 07/09/21 15:39 Blood Culture - Preliminary Blood No Growth after 24 hours 07/09/21 15:15 Blood Culture - Preliminary Blood No Growth after 24 hours Assessment and Plan Assessment: * Recurrent ischemic strokes (third event now). Patient had presented with a syncopal spell, but computed tomography scan of the head revealed an acute ischemic stroke involving the right medial cerebellar hemisphere. This is new as compared to the recent MRI of brain from 07/02/2021. * Hypertension * Diabetes * Vascular dementia. * History of B12 deficiency * Hard of hearing Plan: * Patient is presenting with recurrent ischemic strokes. The current stroke is clearly embolic in nature. His previous strokes also appeared embolic in nature. Patient has failed all combinations of antiplatelet medications. Patient will be started empirically on Eliquis 2.5 mg twice a day for further stroke prevention. From neurology point, patient does not need to be on antiplatelet medication, as there is no significant carotid or vertebrobasilar disease noted on CTA. Okay to continue low-dose aspirin if indicated from cardiology point. * Suggest cardiology consultation for a loop recorder, rule out paroxysmal atrial fibrillation. * Patient already had extensive workup performed for ischemic strokes as mentioned below. No need to repeat. * ODALIS performed on 07/04/2021 revealed no PFO. No clot in the left atrial appendage, normal valvular function, except trace to mild MR. Preserved LV function. Moderate plaque in the aorta. Continue current medical therapy. * CTA of head and neck on 07/01/2021 shows no significant abnormality is seen. No evidence of dissection, aneurysm, or embolus. No significant stenosis of the proximal ICA. * Patient's hemoglobin A1c 6.5 on 05/24/2021 * Lipid panel with cholesterol 113, LDL 55, HDL 42 and triglycerides 79.3. Continue Lipitor 40 mg. * B12 275, folate 10.5. Patient has received B12 injections on the last admission. Patient also on folic acid. * PT OT, speech therapy * Suggest patient follow-up with neuro intervention as outpatient to consider cerebral angiogram, rule out QUALIFICATION ENGINEER vasculitis. * Neurologically clear.
[2021-07-11] MEDS: INSULIN ASPART (NovoLOG) 100 UNIT/ML VIAL SQ SCH ×3 (09:39→18:24)
[2021-07-11] MEDS: PANTOPRAZOLE 40 MG/10 ML VIAL IV SCH (09:49)
[2021-07-11] MEDS: APIXABAN 2.5 MG TABLET PO SCH ×2 (09:50→20:29)
[2021-07-11] MEDS: FOLIC ACID 1 MG TAB PO SCH (09:50)
[2021-07-11] MEDS: ASPIRIN 81 MG PO SCH (09:51)
[2021-07-11 11:47] LABS: Glucose,Whole Blood 105 mg/dL (75-99)
[2021-07-11] MEDS: SODIUM CHLORIDE 0.9% 1,000 ML IV SCH ×4 (11:57→21:22)
--- NOTE | 2021-07-11 12:59 | P.PN ---
Subjective This is a 82 year old male with a past medical history of hypertension, recent subacute CVA over the subcortical left parietal, CVA in 05/2021, history of bilateral basal ganglia ischemic stroke. He does not follow with a biomedical engineering professor that is known. He presents via EMS from nursing facility for alerted mental status and possible syncope. Per the EMS report "patient was found lying in bed in trendelenburg position, staff stated patient became unresponsive during physical therapy. Systolic BP was in the 70s, patient was breathing, and snoring, 12 lead EKG performed revealed NSR. IV was established, patient was give 0.9NS and during transport patient became awake, alert and was talking, upon arrival to [facility], patient became more alert but confused." Patient seen and examined at bedside, he is lethargic, difficult to arouse. He is arousal to stimuli. He is unable to state why he is in the hospital. Unable to give accurate history or review of systems. His vital signs are stable. He is in sinus mechanism. Maintaining oxygenation saturations on room air. Brain CT revealed interval development of right cerebral infarct inferiorly medially. No evidence of hemorrhagic transformation. Patient was admitted from 07/01/2021-07/07/2021 for ischemic stroke. Patient underwent ODALIS 07/04/2021 which revealed No PFO, No clot in the left atrial appendage, Normal valvular function, except trace to mild mitral regurgitation, Preserved LV function, Moderate plaque in the aorta. Loop recorder was requested per Nephrology, patient seen by Dr. Juarez, per Dr. Juarez patient felt to be not a candidate for loop recorder due to mental status, combative at that time, unable to complete loop recorder procedure safely, and quality of life of the patient. 07/11/2021 Patient seen at bedside, no acute distress. He is lying flat comfortably. He's Alert, oriented x 0. Unable to follow commands or answer questions. Patient in sinus mechanism HR 80s-90s, no atrial fibrillation noted. PHYSICAL EXAMINATION Vitals reviewed CONSTITUTIONAL: No apparent distress. HEENT: Neck Supple. No JVD. CHEST EXAMINATION: Lungs are clear to auscultation. No chest wall tenderness is noted on palpation or with deep breathing. HEART EXAMINATION: Regular rate and rhythm. S1, S2 heard. No murmurs, gallops or rub. ABDOMEN: Soft, nontender. Positive bowel sounds. EXTREMITIES: 2+ peripheral pulses, no lower extremity edema and no calf tenderness. NEUROLOGIC EXAMINATION: Patient is awake, alert and oriented x3. ASSESSMENT Recurrent ischemic strokes Acute kidney injury, likely prerenal due to dehydration, improved with IV Fluids Hypertension Dementia PLAN -Per neurology and discussion with primary- they're recommend starting Eliquis for further stroke prevention. Decrease Eliquis to 2.5mg BID due to age and re nal function, if renal function improves can increase to Eliquis 5mg BID -Neurology recommended loop recorder insertion, discussed with Dr. Juarez, at this time due to mental status and quality of life/prognosis Dr. Juarez recommends treating medically and not inserting a loop recorder -Patient also on statin and amlodipine -No further changes at this time, from a cardiology perspective. Nurse practitioner note has been reviewed by physician. Signing provider agrees with the documented findings, assessment, and plan of care. Objective - Vital Signs Vital signs: Vital Signs Temp 97.5 F L 07/11/21 12:00 Pulse 70 07/10/21 12:00 Resp 18 07/11/21 12:00 BP 132/66 07/11/21 12:00 Pulse Ox 97 07/11/21 12:00 Intake & Output 07/10/21 07/11/21 07/11/21 18:59 06:59 18:59 Intake Total 778 Output Total 800 Balance 778 -800 Weight 62 kg Intake: Oral 778 Output: Urine 800 Other: Voiding Method Diaper # Voids 1 1 - Labs CBC & Chem 7: 07/09/21 12:51 07/10/21 07:45 Labs: Abnormal Lab Results - Last 24 Hours (Table) 07/10/21 07/10/21 07/11/21 Range/Units 16:30 20:40 06:34 POC Glucose (mg/dL) 115 H 114 H 111 H (75-99) mg/dL 07/11/21 Range/Units 11:45 POC Glucose (mg/dL) 105 H (75-99) mg/dL Microbiology - Last 24 Hours (Table) 07/09/21 15:39 Blood Culture - Preliminary Blood No Growth after 24 hours 07/09/21 15:15 Blood Culture - Preliminary Blood No Growth after 24 hours
--- NOTE | 2021-07-11 13:31 | P.NPCON ---
History of Present Illness - Reason for Consult acute renal failure - History of Present Illness Patient is a 81-year-old male with history of type 2 diabetes, hyperlipidemia and recent CVA. He was discharged to [facility] 2 days ago and was admitted as patient apparently collapsed during physical therapy. He was noted to be hypotensive. No cardiac arrest. Lowest documented systolic blood pressure is 91 mmHg Patient is currently maintained on IV fluids He is voiding in diapers/brief Currently not eating due to risk of aspiration. Serum creatinine was 2.8 on initial admission and decreased to 1.8 today. PICC line was placed yesterday as an IV access could not be obtained. Review of Systems As per HPI. Other systems negative Past Medical History Past Medical History: No Reported History Additional Past Medical History / Comment(s): Per sister, denies any medial diagnosis History of Any Multi-Drug Resistant Organisms: Unobtainable Past Surgical History: No Surgical Hx Reported Additional Past Surgical History / Comment(s): Per sister, no surgical interventions, patient did have eye injury at 9 years old with branch from tree Past Anesthesia/Blood Transfusion Reactions: No Reported Reaction Past Psychological History: No Psychological Hx Reported Smoking Status: Never smoker Past Alcohol Use History: None Reported Additional Past Alcohol Use History / Comment(s): Per friends and sister, denies use, patient denies uses aswell Past Drug Use History: None Reported - Past Family History family Family Medical History: Cancer Additional Family Medical History / Comment(s): Father of lung cancer. Mother had Breast Cancer. Brother of pancreatic cancer. brother of colon cancer. Was the forth child out of [facility] [place], oldest living ouf of siblings Medications and Allergies Home Medications Medication Instructions Recorded Confirmed Type Aspirin 81 mg PO DAILY 05/27/21 07/09/21 Rx lisinopriL [Zestril] 20 mg PO DAILY tab 05/27/21 07/09/21 Rx Folic Acid 1 mg PO DAILY 07/01/21 07/09/21 History Healthshake 1 dose PO TID-W/MEALS 07/01/21 07/09/21 History Linagliptin [Tradjenta] 5 mg PO DAILY 07/01/21 07/09/21 History QUEtiapine [SEROquel] 100 mg PO HS 07/01/21 07/09/21 History Gabapentin [Neurontin] 100 mg PO BID #6 cap 07/07/21 07/09/21 Rx amLODIPine [Norvasc] 2.5 mg PO HS #1 tablet 07/07/21 07/09/21 Rx Atorvastatin [Lipitor] 40 mg PO HS 07/09/21 07/09/21 History INSULIN ASPART (NovoLOG) [NovoLOG See Protocol SQ ACHS 07/09/21 07/09/21 History (formulary)] Apixaban [Eliquis] 2.5 mg PO BID tablet 07/11/21 Rx Allergies Allergy/AdvReac Type Severity Reaction Status Date / Time No Known Allergies Allergy Verified 07/09/21 13:09 Physical Exam Vitals: Vital Signs Temp Resp BP BP Pulse Ox 07/11/21 12:00 97.5 F L 18 132/66 97 07/11/21 07:45 97.5 F L 16 148/73 95 07/11/21 03:37 98.3 F 18 107/63 95 07/10/21 23:54 98.1 F 15 117/67 96 07/10/21 20:00 99.2 F 14 149/70 92 L 07/10/21 16:46 97.9 F 18 111/61 94 L Intake and Output 07/10/21 07/11/21 07/11/21 22:59 06:59 14:59 Intake Total 118 118 Output Total 400 400 Balance -282 -400 118 Intake: Oral 118 118 Output: Urine 400 400 Other: Voiding Method Diaper Diaper # Voids 1 Weight 62 kg Patient is awake. Comfortable. Not in any acute distress. Speech is dysarthric Examination of the heart S1 and S2 Examination of lungs bilateral breath sounds are heard Abdomen is soft nontender Examination lower extremities shows no significant edema. Results - Lab Results Most recent lab results Calcium 8.2 mg/dL (8.4-10.2) L 07/10/21 07:45 Magnesium 2.7 mg/dL (1.6-2.3) H 07/09/21 12:51 07/09/21 12:51 07/10/21 07:45 Assessment and Plan Assessment: 1. Acute kidney injury, prerenal currently improving with IV hydration. Hold BRUCE inhibitor's for now. Continue with IV fluids 2. Hypovolemia currently maintained on IV fluids Gregorio 3. Recent CVA with dysarthria 4. Hypertension, blood pressure was low currently on very low-dose Norvasc. If blood pressure is further elevated we can resume Bruce inhibitors in the next 1-2 days. 5. Pyuria currently asymptomatic Plan: Continue IV fluids Increase oral intake when able to eat without aspiration Can resume Bruce inhibitors in 1-2 days if blood pressure is further elevated. Should check orthostatics before starting BRUCE inhibitor's. Check bladder scan and rule out urine retention in view of recent CVA
--- NOTE | 2021-07-11 14:53 | P.PN ---
Progress Note - Text Progress Note Date: 07/11/21 Chief Complaint: Past out This is a 81-year-old patient who follows with Dr. Diego. Chronic stable medical conditions include stroke basal ganglia, hearing difficulties, diabetes mellitus type 2, hyperlipidemia. Patient [facility] [place] following left amos lacunar stroke. ODALIS was unremarkable. Loop monitor could not be done as patient was agitated. Patient was discharged with event monitor. Patient is brought in from the ECF today as during physical therapy patient collapsed and was found to be significant hypotensive. A bit pale. No convulsive activity was noted. Patient took a few minutes to come around. Patient's patient is still slow at her baseline from the discharged 2 days ago. No new or any focal weakness. No chest pain or palpitation. Blood pressure by the EMS initially was 98 x 61. Admitted with acute right cerebellar stroke. Started on eliquis given recent 2 stroke after discussion with Dr. Taveras. Also acute kidney injury. Zestoretic discontinued. IV fluids. Creatinine slowly coming down July 10: Patient with lethargic. Not really eating. Speaking slowly. Speech is slurred. PTOT on the case. Requiring full assist. Patient also does not have sitting balance. Tending to fall on the left. Patient not having IV access. Nurse's 10 on for the same. July 11: Patient more awake today. No speech remains slurred. Seen by speech therapy. 4 dysphagia 1/pured textured diet/nectar thick liquid. BUN and creatinine is coming down. Continue IV fluids. Active Medications Acetaminophen (Acetaminophen Tab 325 Mg Tab) 650 mg PO Q6HR PRN PRN Reason: Mild Pain or Fever > 100.5 Amlodipine Besylate (Amlodipine 2.5 Mg Tab) 2.5 mg PO [facility] Last Admin: 07/10/21 20:59 Dose: 2.5 mg Documented by: Apixaban (Apixaban 2.5 Mg Tablet) 2.5 mg PO BID [facility]; Protocol Last Admin: 07/11/21 09:50 Dose: 2.5 mg Documented by: Aspirin (Aspirin 81 Mg) 81 mg PO DAILY [facility] Last Admin: 07/11/21 09:51 Dose: 81 mg Documented by: Atorvastatin Calcium (Atorvastatin 40 Mg Tab) 40 mg PO [facility] Last Admin: 07/10/21 20:59 Dose: 40 mg Documented by: Folic Acid (Folic Acid 1 Mg Tab) 1 mg PO DAILY [facility] Last Admin: 07/11/21 09:50 Dose: 1 mg Documented by: Sodium Chloride (Saline 0.9%) 1,000 mls @ 100 mls/hr IV .Q10H [facility] Last Admin: 07/11/21 11:57 Dose: Not Given Documented by: Insulin Aspart (Insulin Aspart (Novolog) 100 Unit/Ml Vial) 0 unit SQ AC-TID [facility]; Protocol Last Admin: 07/11/21 11:57 Dose: Not Given Documented by: Naloxone HCl (Naloxone 0.4 Mg/Ml 1 Ml Vial) 0.2 mg IV Q2M PRN PRN Reason: Opioid Reversal Ondansetron HCl (Ondansetron 4 Mg/2 Ml Vial) 4 mg IVP Q8HR PRN PRN Reason: Nausea And Vomiting Pantoprazole Sodium (Pantoprazole 40 Mg/10 Ml Vial) 40 mg IV DAILY [facility] Last Admin: 07/11/21 09:49 Dose: 40 mg Documented by: Quetiapine Fumarate (Quetiapine 100 Mg Tab) 100 mg PO HS [facility] Last Admin: 07/10/21 20:59 Dose: 100 mg Documented by: Sodium Chloride (Sodium Chloride 0.9% Flush 10 Ml Syringe) 10 ml IV Q4HR PRN PRN Reason: PICC Line Sodium Chloride (Sodium Chloride 0.9% Flush 10 Ml Syringe) 10 ml IV WEEKLY [facility] Sodium Chloride (Sodium Chloride 0.9% Flush 10 Ml Syringe) 20 ml IV Q4HR PRN PRN Reason: PICC Line Past medical history to include: 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 Nonsmoking. No alcohol. Family history: Lung cancer, breast cancer, pancreatic cancer, colon cancer Physical examination: VITAL SIGNS: 97.5, 18, 132/66, 97% room air GENERAL:reclining in bed, more awake. EYES: Pupils equal. Conjunctiva normal. HEENT: External appearance of nose and ears normal, oral cavity grossly normal. NECK: JVD not raised; masses not palpable. HEART: First and second heart sounds are normal; no edema. LUNGS: Respiratory rate normal; clear to auscultation. ABDOMEN: Soft, nontender, liver spleen not palpable, no masses palpable. PSYCH: Answering some simple questions MUSCULOSKELETAL:No Clubbing/cyanosis;muscles-grossly intact NEUROLOGICAL: [Cranial nerves grossly intact; no facial asymmetry, patient is moving all 4 limbs.. Slurred slow speech. Difficulty with coordination. INVESTIGATIONS, reviewed in the clinical context: July 10: Potassium 4.2 BUN 71 creatinine 1.83 July 09: White count 21.9 hemoglobin 14.7 platelets 339 2141 BUN 69 creatinine 2.8 Troponin I 0.037, 0.20 UA positive for request trace, WBC EKG tracing personally reviewed by me-sinus rhythm. Right bundle-branch block. Nonspecific changes. Chest x-ray film personally reviewed by me-no infiltrates CT brain without contrast: Interval development of right cerebellar infarct inferiorly and medially. July 07: White count 8.5 hemoglobin 11.1 pressure 4.3 creatinine 1.01 From 07/01/2021 admission ODALIS: Negative EEG: Negative for epilepsy. MRI brain: Left amos lacunar infarct with other findings CT angiogram head and neck: JVD T changes. Nothing acute CT brain without contrast for TPA: Pain volume loss changes, chronic ischemic changes and scattered chronic infarct. Lacunar infarct cannot be ruled out. Assessment and plan: -Acute right cerebellar stroke. In a patient who recently had acute lacunar infarct/stroke in the left amos, and also stroke in May 2021. Bailey to be embolic: Recent ODALIS was negative. Discussed with Dr. Taveras from neurology. Given acute strokes and recurrent in a short span of time. eliquis 5 mg twice a day. Continue aspirin. -Hypotension from dehydration/acute kidney injury: Back to IV fluids -Severe truncal ataxia from cerebral stroke Fall precautions -Acute kidney injury likely ATN/prerenal: Slow to respond Creatinine was 1.06 on July 01. On admission 2.8. DC lisinopril HCl. Continue IV fluids. -Essential hypertension Zestoretic -hold. Amlodipine 2.5 mg daily at bedtime -Hyperlipidemia Lipitor 40 mg daily at bedtime -Diabetes mellitus type 2, on oral hypoglycemic Hold trajenta 5 mg daily. Follow Accu-Cheks with sliding scale. -Acute on Chronic dysarthria, secondary to cerebellar stroke : Slow to respond Speech therapy -Acute dysphagia from acute stroke Dysphagia 1/pured diet with nectar thick liquids. Supervise. Eliquis 5 mg twice a day. aspirin. Repeat labs in the morning. I'll feeding supervise. Repeat BMP in the morning. Could return to the ECF tomorrow if renal function much improved.
[2021-07-11 16:36] LABS: Glucose,Whole Blood 78 mg/dL (75-99)
[2021-07-11] MEDS: QUEtiapine 100 MG TAB PO SCH (20:29)
[2021-07-11] MEDS: amLODIPine 2.5 MG TAB PO SCH (20:29)
[2021-07-11] MEDS: ATORVASTATIN 40 MG TAB PO SCH (20:29)
[2021-07-11 20:51] LABS: Glucose,Whole Blood 125 mg/dL (75-99)
[2021-07-12] MEDS: SODIUM CHLORIDE 0.9% 1,000 ML IV SCH ×2 (01:45→20:08)
[2021-07-12] MEDS: INSULIN ASPART (NovoLOG) 100 UNIT/ML VIAL SQ SCH ×3 (06:15→17:53)
[2021-07-12 06:30] LABS: Glucose,Whole Blood 96 mg/dL (75-99)
[2021-07-12] MEDS: ASPIRIN 81 MG PO SCH (09:05)
[2021-07-12] MEDS: APIXABAN 2.5 MG TABLET PO SCH ×2 (09:06→20:08)
[2021-07-12] MEDS: PANTOPRAZOLE 40 MG/10 ML VIAL IV SCH (09:06)
[2021-07-12] MEDS: FOLIC ACID 1 MG TAB PO SCH (09:06)
[2021-07-12] MEDS ORDERED: ANIDULAFUNGIN 200 MG in SODIUM CHLORIDE 0.9% 200 ML IVPB ONE (10:00)
[2021-07-12 11:40] LABS: Glucose,Whole Blood 64 mg/dL (75-99)
--- NOTE | 2021-07-12 12:05 | P.PN ---
Subjective Patient is seen for follow-up for acute kidney injury, mostly prerenal currently improving with IV fluids. Post void residual residual has been around 200 mL. This is currently being monitored. In down to 1.8 yesterday from 2.8 on initial admission. The maintained on IV fluids, previous creatinine 1.0 on 07/02/2019 to Objective - Vital Signs Vital signs: Vital Signs Temp 97.7 F 07/12/21 08:00 Pulse 78 07/12/21 08:00 Resp 18 07/12/21 08:00 BP 166/78 07/12/21 08:00 Pulse Ox 97 07/12/21 08:00 Intake & Output 07/11/21 07/12/21 07/12/21 18:59 06:59 18:59 Intake Total 236 Output Total 200 [id number] Balance 36 -436139 Intake: Oral 236 Output: Urine 200 100 Post Void Residual [id number] Other: Voiding Method Diaper Diaper # Voids 1 1 - Exam Awake comfortable. Not in any acute distress. Examination of the heart S1 and S2 Examination lungs bilateral breath sounds are heard Abdomen is soft nontender Examination lower extremities shows no evidence of edema - Labs CBC & Chem 7: 07/09/21 12:51 07/10/21 07:45 Labs: Abnormal Lab Results - Last 24 Hours (Table) 07/11/21 07/11/21 07/12/21 Range/Units 11:45 20:27 11:37 POC Glucose (mg/dL) 105 H 125 H 64 L (75-99) mg/dL Microbiology - Last 24 Hours (Table) 07/09/21 15:15 Blood Culture - Final Blood 07/09/21 15:15 Blood Culture Gram Stain - Preliminary Blood Blood Culture - Preliminary Coagulase Negative Staph 07/09/21 15:39 Blood Culture - Preliminary Blood No Growth after 48 hours Assessment and Plan Assessment: 1. Acute kidney injury, prerenal currently improving with IV hydration. Hold BRUCE inhibitor's for now. Continue with IV fluids 2. Hypovolemia currently maintained on IV fluids Gregorio 3. Recent CVA with dysarthria 4. Hypertension, blood pressure was low currently on very low-dose Norvasc. If blood pressure is further elevated we can resume Bruce inhibitors in the next 1-2 days. 5. Pyuria currently asymptomatic Plan: Continue IV fluids Increase oral intake when able to eat without aspiration Can resume Bruce inhibitors in 1-2 days if blood pressure is further elevated. Continue to monitor post void residual Repeat labs
[2021-07-12 12:09] LABS: Glucose,Whole Blood 83 mg/dL (75-99)
[2021-07-12 12:29] LABS: Calcium 8.2 mg/dL (8.4-10.2); Potassium 4.2 mmol/L (3.5-5.1)
[2021-07-12 16:32] LABS: Glucose,Whole Blood 82 mg/dL (75-99)
[2021-07-12] MEDS: lisinopriL 20 MG TAB PO SCH (17:53)
--- NOTE | 2021-07-12 20:04 | PN ---
PROGRESS NOTE DATE OF SERVICE: 07/12/2021 This 81-year-old gentleman who was admitted with acute right cerebellar stroke also had change in mental status. Patient continues to be confused at this time. Patient also ( ) hypertension. The patient has some renal failure because of dehydration on admission. PAST MEDICAL HISTORY: Reviewed. REVIEW OF SYSTEMS: Could not be taken. CURRENT MEDICATIONS: Reviewed include Norvasc, Tylenol, Eliquis. Doses reviewed. Other medications reviewed. PHYSICAL EXAMINATION: Pulse 86, blood pressure 181/81, respiration 18. CHEST: Clear to auscultation. CARDIOVASCULAR SYSTEM: S1/S2. ABDOMEN: Soft, nontender. NERVOUS SYSTEM: Diffuse weakness, could not be examined completely. LABS: Sodium 143, potassium 4.2. Other labs reviewed. ASSESSMENT: 1. Acute right cerebellar stroke. 2. Hypertension. 3. Hypotension present on admission. 4. Hyperlipidemia. 5. Diabetes mellitus, type 2. RECOMMENDATIONS: Recommend to continue current management and symptomatic treatment. Otherwise, at this time we will monitor the blood pressure closely. The patient has coagulase-negative Staph grown from the blood culture. Prognosis guarded. Further recommendations to follow. MMODL / IJN: [id number] /
[2021-07-12 20:05] LABS: Glucose,Whole Blood 121 mg/dL (75-99)
[2021-07-12] MEDS: amLODIPine 2.5 MG TAB PO SCH (20:08)
[2021-07-12] MEDS: QUEtiapine 100 MG TAB PO SCH (20:08)
[2021-07-12] MEDS: ATORVASTATIN 40 MG TAB PO SCH (20:08)
--- NOTE | 2021-07-12 23:44 | P.CONS ---
History of Present Illness - Reason for Consult Consult date: 07/12/21 Bacteremia Requesting physician: Roland Vivas - Chief Complaint unresponsivness x 1 day - History of Present Illness Patient is 81-year-old male presenting to the ER 3 days ago for evaluation of an episode of unresponsiveness while at the [facility] patient on presentation to the hospital was afebrile and no fever has been recorded subsequently patient is currently breathing comfortably on room air patient did have a white count of 21.9 on admission and it has not been rechecked since then BUN was slightly elevated creatinine has improved levels and has been normal troponin was mildly elevated patient did have a positive UA however no urine culture was done patient did have a blood cultures which was initially reported as yeast and the patient was started on Eraxis pending evaluation subsequently the blood cultures were finalized as coagulase-negative staph infectious disease has been consulted for further management of antibiotic therapy most of the information has been obtained from review the chart and talking nursing staff as the patient himself was not able to provide any history patient also have a chest x-ray on admission basilar atelectasis favored over pneumonia Review of Systems Positive points has been mentioned in HPI complete review could not be obtained because of his underlying mental status Past Medical History Past Medical History: No Reported History Additional Past Medical History / Comment(s): Per sister, denies any medial diagnosis History of Any Multi-Drug Resistant Organisms: Unobtainable Past Surgical History: No Surgical Hx Reported Additional Past Surgical History / Comment(s): Per sister, no surgical interventions, patient did have eye injury at 9 years old with branch from tree Past Anesthesia/Blood Transfusion Reactions: No Reported Reaction Past Psychological History: No Psychological Hx Reported Smoking Status: Never smoker Past Alcohol Use History: None Reported Additional Past Alcohol Use History / Comment(s): Per friends and sister, denies use, patient denies uses aswell Past Drug Use History: None Reported - Past Family History family Family Medical History: Cancer Additional Family Medical History / Comment(s): Father of lung cancer. Mother had Breast Cancer. Brother of pancreatic cancer. brother of colon cancer. Was the forth child out of sever, oldest living ouf of siblings Medications and Allergies Home Medications Medication Instructions Recorded Confirmed Type Aspirin 81 mg PO DAILY 05/27/21 07/09/21 Rx lisinopriL [Zestril] 20 mg PO DAILY tab 05/27/21 07/09/21 Rx Folic Acid 1 mg PO DAILY 07/01/21 07/09/21 History Healthshake 1 dose PO TID-W/MEALS 07/01/21 07/09/21 History Linagliptin [Tradjenta] 5 mg PO DAILY 07/01/21 07/09/21 History QUEtiapine [SEROquel] 100 mg PO HS 07/01/21 07/09/21 History Gabapentin [Neurontin] 100 mg PO BID #6 cap 07/07/21 07/09/21 Rx amLODIPine [Norvasc] 2.5 mg PO HS #1 tablet 07/07/21 07/09/21 Rx Atorvastatin [Lipitor] 40 mg PO HS 07/09/21 07/09/21 History INSULIN ASPART (NovoLOG) [NovoLOG See Protocol SQ ACHS 07/09/21 07/09/21 History (formulary)] Apixaban [Eliquis] 2.5 mg PO BID tablet 07/11/21 Rx Allergies Allergy/AdvReac Type Severity Reaction Status Date / Time No Known Allergies Allergy Verified 07/09/21 13:09 Physical Exam Vitals: Vital Signs Temp Pulse Resp BP Pulse Ox 07/12/21 08:00 97.7 F 78 18 166/78 97 07/12/21 04:00 79 18 170/63 94 L 07/12/21 00:00 98.7 F 75 16 171/73 95 07/11/21 20:20 99 F 18 177/90 94 L 07/11/21 15:53 98.1 F 18 177/87 97 Intake and Output 07/11/21 07/12/21 07/12/21 22:59 06:59 14:59 Intake Total 118 Output Total 288362 Balance 118 -934280 Intake: Oral 118 Output: Urine 100 Post Void Residual [id number] Other: Voiding Method Diaper Diaper Diaper # Voids 1 1 GENERAL DESCRIPTION: An elderly male lying in bed, no distress. No tachypnea or accessory muscle of respiration use. HEENT: Shows Pallor , no scleral icterus. Oral mucous membrane is dry. No pharyngeal erythema or thrush NECK: Trachea central, no thyromegaly. LUNGS: Unlabored breathing. Decreased present at the base. No wheeze or crackle. HEART: S1, S2, regular rate and rhythm. No loud murmur ABDOMEN: Soft, no tenderness , guarding or rigidity, no organomegaly EXTREMITIES: No edema of feet. SKIN: No rash, no masses palpable. NEUROLOGICAL: The patient is lethargic and nonverbal orientation could not be determined Results CBC & Chem 7: 07/09/21 12:51 07/12/21 10:39 Labs: Abnormal Lab Results - Last 24 Hours (Table) 07/11/21 07/12/21 07/12/21 Range/Units 20:27 10:39 11:37 Chloride 113 H (98-107) mmol/L BUN 35 H (9-20) mg/dL Glucose 104 H (74-99) mg/dL POC Glucose (mg/dL) 125 H 64 L (75-99) mg/dL Calcium 8.2 L (8.4-10.2) mg/dL Microbiology - Last 24 Hours (Table) 07/09/21 15:15 Blood Culture - Final Blood 07/09/21 15:15 Blood Culture Gram Stain - Preliminary Blood Blood Culture - Preliminary Coagulase Negative Staph 07/09/21 15:39 Blood Culture - Preliminary Blood No Growth after 48 hours Assessment and Plan (1) Bacteremia Current Visit: Yes Status: Acute Code(s): R78.81 - BACTEREMIA SNOMED Code(s): 5331814 Plan: 1patient with a positive blood culture which has been finalized with coagulase- negative staph in this patient with no clinical disease to follow with more likely skin contaminant and no need for systemic antibiotic therapy for the same blood cultures will be repeated to document clearance of bacteremia 2patient did have elevated white count admission with a positive UA unfortunately culture has not been done, we will repeat his CBC urine culture is still positive we will add antibiotics to cover for possible UTI 3-gentle IV fluid We will follow on clinical condition and cultures to further adjust medication if needed Thank you for this consultation will follow this patient along with you Time with Patient: Greater than 30
--- NOTE | 2021-07-13 00:40 | P.PN ---
Subjective Progress Note Date: 07/11/21 Patient was seen for a follow-up. Patient is laying comfortably in the bed. Patient denies headache, denies any numbness or tingling. Patient has started to feed himself. He is able to take nectar thick food. He is not choking, talking more. Objective - Vital Signs Vital signs: Vital Signs Temp 97.2 F L 07/12/21 20:05 Pulse 93 07/13/21 00:00 Resp 18 07/13/21 00:00 BP 145/73 07/13/21 00:00 Pulse Ox 95 07/13/21 00:00 Intake & Output 07/12/21 07/12/21 07/13/21 06:59 18:59 07:59 Output Total 404808 Balance -686253 Output: Urine 100 Post Void Residual [id number] Other: Voiding Method Diaper Diaper Diaper # Voids 1 1 - Exam Patient is alert and awake in no distress. He is slow to respond. Speech is moderately dysarthric. No aphasia. Patient can name and repeat. Patient states it is August and the year is 2001. Pupils are equal, round and reacting. Visual farrell are full and face is symmetric. Muscle strength appears equal. No ataxia. Sensations are equal. - Labs CBC & Chem 7: 07/09/21 12:51 07/12/21 10:39 Labs: Abnormal Lab Results - Last 24 Hours (Table) 07/12/21 07/12/21 07/12/21 Range/Units 10:39 11:37 20:03 Chloride 113 H (98-107) mmol/L BUN 35 H (9-20) mg/dL Glucose 104 H (74-99) mg/dL POC Glucose (mg/dL) 64 L 121 H (75-99) mg/dL Calcium 8.2 L (8.4-10.2) mg/dL Microbiology - Last 24 Hours (Table) 07/09/21 15:39 Blood Culture - Preliminary Blood No Growth after 72 hours 07/09/21 15:15 Blood Culture - Final Blood 07/09/21 15:15 Blood Culture Gram Stain - Preliminary Blood Blood Culture - Preliminary Coagulase Negative Staph Assessment and Plan Assessment: * Recurrent ischemic strokes (third event now). Patient had presented with a syncopal spell, but computed tomography scan of the head revealed an acute ischemic stroke involving the right medial cerebellar hemisphere. This is new as compared to the recent MRI of brain from 07/02/2021. * Hypertension * Diabetes * Vascular dementia. * History of B12 deficiency * Hard of hearing Plan: * Patient is presenting with recurrent ischemic strokes. The current stroke is clearly embolic in nature. His previous strokes also appeared embolic in nature. Patient has failed all combinations of antiplatelet medications. Patient will be started empirically on Eliquis 2.5 mg twice a day for further stroke prevention. Okay to continue low-dose aspirin, especially if indicated from cardiology point. Patient does have vascular risk factors. * Cardiology input appreciated. No indication for loop recorder. Treat [facility]. * Patient already had extensive workup performed for ischemic strokes as mentioned below. No need to repeat. * ODALIS performed on 07/04/2021 revealed no PFO. No clot in the left atrial appendage, normal valvular function, except trace to mild MR. Preserved LV function. Moderate plaque in the aorta. Continue current medical therapy. * CTA of head and neck on 07/01/2021 shows no significant abnormality is seen. No evidence of dissection, aneurysm, or embolus. No significant stenosis of the proximal ICA. * Patient's hemoglobin A1c 6.5 on 05/24/2021 * Lipid panel with cholesterol 113, LDL 55, HDL 42 and triglycerides 79.3. Continue Lipitor 40 mg. * B12 275, folate 10.5. Patient has received B12 injections on the last admission. Patient also on folic acid. * PT OT, speech therapy * Suggest patient follow-up with neuro intervention as outpatient to consider cerebral angiogram, rule out QUALITY AUDITOR vasculitis. * Neurologically clear. We will sign off. Please reconsult neurology if any concerns.
[2021-07-13] MEDS: SODIUM CHLORIDE 0.9% 1,000 ML IV SCH (04:17)
[2021-07-13 06:26] LABS: Glucose,Whole Blood 90 mg/dL (75-99)
[2021-07-13] MEDS: INSULIN ASPART (NovoLOG) 100 UNIT/ML VIAL SQ SCH ×3 (06:34→17:08)
[2021-07-13] MEDS: lisinopriL 20 MG TAB PO SCH (08:42)
[2021-07-13] MEDS: APIXABAN 2.5 MG TABLET PO SCH ×2 (08:42→21:58)
[2021-07-13] MEDS: FOLIC ACID 1 MG TAB PO SCH (08:42)
[2021-07-13] MEDS: ASPIRIN 81 MG PO SCH (08:42)
[2021-07-13] MEDS: PANTOPRAZOLE 40 MG/10 ML VIAL IV SCH (08:42)
[2021-07-13] MEDS ORDERED: ANIDULAFUNGIN 100 MG in SODIUM CHLORIDE 0.9% 100 ML IVPB SCH (09:00)
[2021-07-13 11:46] LABS: HCT 42.2 % (39.0-53.0); HGB 13.4 gm/dL (13.0-17.5); MCH 30.4 pg (25.0-35.0); MCHC 31.8 g/dL (31.0-37.0); MCV 95.6 fL (80.0-100.0); Mean Platelet Volume 7.2; Platelet Count 315 k/uL (150-450); RBC 4.41 m/uL (4.30-5.90); RDW 12.4 % (11.5-15.5); WBC 10.7 k/uL (3.8-10.6)
[2021-07-13 11:55] LABS: Albumin 3.2 g/dL (3.5-5.0); C Reactive Protein 8.5 mg/dL (<1.0); Calcium 8.5 mg/dL (8.4-10.2); Potassium 4.1 mmol/L (3.5-5.1); Total Bilirubin 0.6 mg/dL (0.2-1.3)
[2021-07-13 11:56] LABS: Appearance,Urine Cloudy (Clear); Bilirubin,Urine Negative (Negative); Blood,Urine Large (Negative); Color,Urine Light Red; Glucose,Urine (UA) Negative (Negative); Ketones,Urine Negative (Negative); Leukocyte Esterase,Urine Small (Negative); Mucus,Urine Rare /hpf; Nitrite,Urine Negative (Negative); PH, Urine 5.5 (5.0-8.0); Protein,Urine 2+ (Negative); RBC,Urine >182 /hpf (0-5); Specific Gravity,Urine 1.015 (1.001-1.035); Urobilinogen,Urine <2.0 mg/dL (<2.0); WBC,Urine 34 /hpf (0-5)
[2021-07-13 11:57] LABS: Glucose,Whole Blood 85 mg/dL (75-99)
[2021-07-13 12:30] LABS: Lymphocytes # (M) 1.28 k/uL (1.0-4.8); Monocytes # (M) 0.54 k/uL (0-1.0); Neutrophils # (M) 8.88 k/uL (1.3-7.7); Neutrophils % (M) 83 %; Nucleated Red Blood Cells 0 /100 WBC (0-0); Total Cells Counted 100
[2021-07-13 12:31] LABS: RBC Morphology Normal
--- NOTE | 2021-07-13 14:09 | P.PN ---
Subjective Patient is seen for follow-up for acute kidney injury, mostly prerenal currently improving with IV fluids. Post void residual residual has been around 200 mL. This is currently being monitored. In down to 1.0 yesterday from 2.8 on initial admission. The maintained on IV fluids, previous creatinine 1.0 on 07/01/2021 No complaints today. Patient is tearful for some reason. He does not communicate much. Objective - Vital Signs Vital signs: Vital Signs Temp 97.7 F 07/13/21 08:00 Pulse 74 07/13/21 12:00 Resp 18 07/13/21 12:00 BP 164/77 07/13/21 12:00 Pulse Ox 98 07/13/21 12:00 Intake & Output 07/12/21 07/13/21 07/13/21 17:59 06:59 18:59 Output Total 100 Balance -100 Output: Urine 100 Other: Voiding Method Diaper # Voids - Exam Awake comfortable. Not in any acute distress. Dysarthric Examination of the heart S1 and S2 Examination lungs bilateral breath sounds are heard Abdomen is soft nontender Examination lower extremities shows no evidence of edema - Labs CBC & Chem 7: 07/13/21 11:23 07/13/21 11:23 Labs: Abnormal Lab Results - Last 24 Hours (Table) 07/12/21 07/13/21 07/13/21 Range/Units 20:03 10:30 11:23 WBC 10.7 H (3.8-10.6) k/uL Neutrophils # (Manual) 8.88 H (1.3-7.7) k/uL Chloride (98-107) mmol/L BUN (9-20) mg/dL Glucose (74-99) mg/dL POC Glucose (mg/dL) 121 H (75-99) mg/dL C-Reactive Protein (<1.0) mg/dL Total Protein (6.3-8.2) g/dL Albumin (3.5-5.0) g/dL Urine Protein 2+ H (Negative) Urine Blood Large H (Negative) Ur Leukocyte Esterase Small H (Negative) Urine RBC >182 H (0-5) /hpf Urine WBC 34 H (0-5) /hpf Urine Mucus Rare H (None) /hpf 07/13/21 Range/Units 11:23 WBC (3.8-10.6) k/uL Neutrophils # (Manual) (1.3-7.7) k/uL Chloride 110 H (98-107) mmol/L BUN 26 H (9-20) mg/dL Glucose 104 H (74-99) mg/dL POC Glucose (mg/dL) (75-99) mg/dL C-Reactive Protein 8.5 H (<1.0) mg/dL Total Protein 6.0 L (6.3-8.2) g/dL Albumin 3.2 L (3.5-5.0) g/dL Urine Protein (Negative) Urine Blood (Negative) Ur Leukocyte Esterase (Negative) Urine RBC (0-5) /hpf Urine WBC (0-5) /hpf Urine Mucus (None) /hpf Microbiology - Last 24 Hours (Table) 07/12/21 10:39 Blood Culture - Preliminary Blood No Growth after 24 hours 07/09/21 15:15 Blood Culture Gram Stain - Preliminary Blood Blood Culture - Preliminary Coagulase Negative Staph 07/09/21 15:39 Blood Culture - Preliminary Blood No Growth after 72 hours 07/09/21 15:15 Blood Culture - Final Blood Assessment and Plan Assessment: 1. Acute kidney injury, prerenal currently improving with IV hydration. Hold BRUCE inhibitor's for now. Continue with IV fluids 2. Hypovolemia currently maintained on IV fluids Gregorio 3. Recent CVA with dysarthria 4. Hypertension, blood pressure was low currently on very low-dose Norvasc. If blood pressure is further elevated we can resume Bruce inhibitors in the next 1-2 days. 5. Pyuria currently asymptomatic Plan: Continue IV fluids Increase oral intake when able to eat without aspiration Can resume Bruce inhibitors in 1-2 days if blood pressure is further elevated. Continue to monitor post void residual Repeat labs Will follow on an as-needed basis
[2021-07-13 16:59] LABS: Glucose,Whole Blood 120 mg/dL (75-99)
--- NOTE | 2021-07-13 18:32 | PN ---
PROGRESS NOTE DATE OF SERVICE: 07/13/2021 This 81-year-old gentleman who was admitted with acute right cerebellar stroke is being closely monitored. No chest pain. No palpitations. Patient continues to be confused. PHYSICAL EXAMINATION: Pulse is 74, blood pressure 164/77, respiration 18. Chest is clear to auscultation. Abdomen soft. Nervous system: Diffusely weak. LABS: Reviewed. Glucose 120. ASSESSMENT: 1. Acute right cerebellar stroke. 2. Hypertension. 3. Gait dysfunction. 4. Hypotension, present on admission. 5. Hyperlipidemia. 6. Diabetes mellitus, type 2. RECOMMENDATIONS AND DISCUSSION: I recommend to continue current medications, continue with the monitoring, symptomatic treatment. PT/OT evaluation. Possible ECF rehab. Further recommendations to follow. MMODL / IJN: [id number] /
[2021-07-13] MEDS: ATORVASTATIN 40 MG TAB PO SCH (21:58)
[2021-07-13] MEDS: QUEtiapine 100 MG TAB PO SCH (21:58)
[2021-07-13] MEDS: amLODIPine 2.5 MG TAB PO SCH (21:58)
[2021-07-13 23:32] LABS: Glucose,Whole Blood 146 mg/dL (75-99)
[2021-07-14 07:12] LABS: Glucose,Whole Blood 142 mg/dL (75-99)
[2021-07-14] MEDS: ASPIRIN 81 MG PO SCH (08:30)
[2021-07-14] MEDS: lisinopriL 20 MG TAB PO SCH (08:30)
[2021-07-14] MEDS: APIXABAN 2.5 MG TABLET PO SCH ×2 (08:30→19:59)
[2021-07-14] MEDS: FOLIC ACID 1 MG TAB PO SCH (08:30)
[2021-07-14] MEDS: INSULIN ASPART (NovoLOG) 100 UNIT/ML VIAL SQ SCH ×3 (08:31→18:30)
[2021-07-14 12:03] LABS: Glucose,Whole Blood 168 mg/dL (75-99)
--- NOTE | 2021-07-14 14:36 | PN ---
PROGRESS NOTE DATE OF SERVICE: 07/14/2021 This 81-year-old gentleman who was admitted with cerebellar infarct still continues to be confused. No chest pain. No shortness of breath. PHYSICAL EXAMINATION: Pulse is 88, blood pressure 134/72, respiration 18. CHEST: Clear to auscultation. CARDIOVASCULAR: S1, S2 muffled. ABDOMEN: No distention. NERVOUS SYSTEM: Diffusely weak. LABS: Accu-Cheks 146, 142. ASSESSMENT: 1. Acute right cerebellar stroke. 2. Hypertension. 3. Gait dysfunction. 4. Hypotension, present on admission. 5. Hyperlipidemia. 6. Diabetes mellitus, type 2. RECOMMENDATIONS AND DISCUSSION: I recommend to continue current medications, continue with the monitoring, symptomatic treatment. Antiplatelet agents. PT/OT evaluation, possible ECF rehab in the next 24 to 48 hours. MMODL / IJN: [id number] /
[2021-07-14 17:32] LABS: Glucose,Whole Blood 110 mg/dL (75-99)
[2021-07-14] MEDS: SODIUM CHLORIDE 0.9% 1,000 ML IV SCH ×3 (18:16→20:00)
[2021-07-14] MEDS: PANTOPRAZOLE 40 MG/10 ML VIAL IV SCH (18:17)
[2021-07-14] MEDS: ATORVASTATIN 40 MG TAB PO SCH (19:59)
[2021-07-14] MEDS: QUEtiapine 100 MG TAB PO SCH (19:59)
[2021-07-14] MEDS: amLODIPine 2.5 MG TAB PO SCH (19:59)
[2021-07-14 20:17] LABS: Glucose,Whole Blood 67 mg/dL (75-99)
[2021-07-14 20:46] LABS: Glucose,Whole Blood 120 mg/dL (75-99)
--- NOTE | 2021-07-14 23:03 | P.PN ---
Subjective Progress Note Date: 07/13/21 Principal diagnosis: Positive blood cultures and urinary tract infection Patient is 81-year-old male presenting to the hospital with an episode of unresponsiveness while at the correction patient subsequently was noticed to have a positive blood culture which was initially reported as fungal culture and subsequently changed to staph epi, patient also have a positive UA concerning for a symptomatic urinary tract infection. On today's evaluation that is 07/13/2021, the patient is afebrile the patient is more awake and alert today he is breathing comfortably denies having any chest pain, abdominal pain no diarrhea Objective - Vital Signs Vital signs: Vital Signs Temp 97.7 F 07/13/21 08:00 Pulse 82 07/13/21 08:00 Resp 18 07/13/21 08:00 BP 130/77 07/13/21 08:00 Pulse Ox 97 07/13/21 08:44 Intake & Output 07/12/21 07/13/21 07/13/21 17:59 06:59 18:59 Output Total 100 Balance -100 Output: Urine 100 Other: Voiding Method Diaper # Voids - Exam GENERAL DESCRIPTION: An elderly male lying in bed in no distress RESPIRATORY SYSTEM: Unlabored breathing , decreased breath sounds at bases HEART: S1 S2 regular rate and rhythm , ABDOMEN: Soft , no tenderness EXTREMITIES: No edema feet - Labs CBC & Chem 7: 07/13/21 11:23 07/13/21 11:23 Labs: Abnormal Lab Results - Last 24 Hours (Table) 07/12/21 07/13/21 07/13/21 Range/Units 20:03 10:30 11:23 WBC 10.7 H (3.8-10.6) k/uL Neutrophils # (Manual) 8.88 H (1.3-7.7) k/uL Chloride (98-107) mmol/L BUN (9-20) mg/dL Glucose (74-99) mg/dL POC Glucose (mg/dL) 121 H (75-99) mg/dL C-Reactive Protein (<1.0) mg/dL Total Protein (6.3-8.2) g/dL Albumin (3.5-5.0) g/dL Urine Protein 2+ H (Negative) Urine Blood Large H (Negative) Ur Leukocyte Esterase Small H (Negative) Urine RBC >182 H (0-5) /hpf Urine WBC 34 H (0-5) /hpf Urine Mucus Rare H (None) /hpf 07/13/21 Range/Units 11:23 WBC (3.8-10.6) k/uL Neutrophils # (Manual) (1.3-7.7) k/uL Chloride 110 H (98-107) mmol/L BUN 26 H (9-20) mg/dL Glucose 104 H (74-99) mg/dL POC Glucose (mg/dL) (75-99) mg/dL C-Reactive Protein 8.5 H (<1.0) mg/dL Total Protein 6.0 L (6.3-8.2) g/dL Albumin 3.2 L (3.5-5.0) g/dL Urine Protein (Negative) Urine Blood (Negative) Ur Leukocyte Esterase (Negative) Urine RBC (0-5) /hpf Urine WBC (0-5) /hpf Urine Mucus (None) /hpf Microbiology - Last 24 Hours (Table) 07/12/21 10:39 Blood Culture - Preliminary Blood No Growth after 24 hours 07/09/21 15:15 Blood Culture Gram Stain - Preliminary Blood Blood Culture - Preliminary Coagulase Negative Staph 07/09/21 15:39 Blood Culture - Preliminary Blood No Growth after 72 hours 07/09/21 15:15 Blood Culture - Final Blood Assessment and Plan (1) Bacteremia Current Visit: Yes Status: Acute Code(s): R78.81 - BACTEREMIA SNOMED Code(s): 2797529 Plan: 1patient with a positive blood culture which has been finalized with coagulase-negative staph in this patient with no clinical disease to follow with more likely skin contaminant and no need for systemic antibiotic therapy for the same blood cultures will be repeated to document clearance of bacteremia 2patient did have elevated white count admission with a positive UA unfortunat margarita culture has not been done, his repeat UA is still positive and cultures are pending 3Continue with the Britany while waiting for the cultures to finalize Time with Patient: Less than 30
--- NOTE | 2021-07-14 23:04 | P.PN ---
Subjective Progress Note Date: 07/14/21 Principal diagnosis: Positive blood cultures and urinary tract infection Patient is 81-year-old male presenting to the hospital with an episode of unresponsiveness while at the [facility] patient subsequently was noticed to have a positive blood culture which was initially reported as fungal culture and subsequently changed to staph epi, patient also have a positive UA concerning for a symptomatic urinary tract infection. On today's evaluation that is 07/14/2021, the patient remains to be afebrile the patient is slightly sleepy and lethargic and could not provide any history, no vomiting or diarrheaHas been reported by the nursing staff Objective - Vital Signs Vital signs: Vital Signs Temp 97.8 F 07/14/21 14:00 Pulse 77 07/14/21 14:00 Resp 19 07/14/21 14:00 BP 135/74 07/14/21 14:00 Pulse Ox 95 07/14/21 14:00 Intake & Output 07/13/21 07/14/21 07/14/21 18:59 06:59 18:59 Intake Total 120 Output Total 520 500 Balance -400 -500 Weight 71 kg Intake: Oral 120 Output: Urine 520 500 Other: Voiding Method Diaper External Catheter External Catheter - Exam GENERAL DESCRIPTION: An elderly male lying in bed in no distress RESPIRATORY SYSTEM: Unlabored breathing , decreased breath sounds at bases HEART: S1 S2 regular rate and rhythm , ABDOMEN: Soft , no tenderness EXTREMITIES: No edema feet - Labs CBC & Chem 7: 07/13/21 11:23 07/13/21 11:23 Labs: Abnormal Lab Results - Last 24 Hours (Table) 07/13/21 07/13/21 07/14/21 Range/Units 16:53 23:30 07:09 POC Glucose (mg/dL) 120 H 146 H 142 H (75-99) mg/dL 07/14/21 Range/Units 12:01 POC Glucose (mg/dL) 168 H (75-99) mg/dL Microbiology - Last 24 Hours (Table) 07/12/21 10:39 Blood Culture - Preliminary Blood No Growth after 48 hours 07/13/21 10:30 Urine Culture - Final Urine,Clean Catch 07/09/21 15:39 Blood Culture - Preliminary Blood No Growth after 96 hours Assessment and Plan (1) Bacteremia Current Visit: Yes Status: Acute Code(s): R78.81 - BACTEREMIA SNOMED Code(s): 6275837 Plan: 1patient with a positive blood culture which has been finalized with coagulase- negative staph in this patient with no clinical disease to follow with more likely skin contaminant and no need for systemic antibiotic therapy for the same, repeat blood cultures has been negative 2patient did have elevated white count admission with a positive UA unfortunately urine culture were not been done, his repeat UA is still positive and cultures are pending 3Continue [facility] while waiting for the cultures to finalize Time with Patient: Less than 30
[2021-07-14] MEDS ORDERED: HALOPERIDOL LACTATE 5 MG/ML 1 ML VIAL IM PRN (23:25)
[2021-07-14] MEDS: LORazepam 2 MG/ML INJ IV PRN (23:50)
[2021-07-15] MEDS: SODIUM CHLORIDE 0.9% 1,000 ML IV SCH ×3 (01:32→21:26)
[2021-07-15 07:15] LABS: Glucose,Whole Blood 108 mg/dL (75-99)
[2021-07-15] MEDS: INSULIN ASPART (NovoLOG) 100 UNIT/ML VIAL SQ SCH ×3 (07:43→16:55)
[2021-07-15] MEDS: ASPIRIN 81 MG PO SCH (08:17)
[2021-07-15] MEDS: PANTOPRAZOLE 40 MG/10 ML VIAL IV SCH (08:17)
[2021-07-15] MEDS: lisinopriL 20 MG TAB PO SCH (08:17)
[2021-07-15] MEDS: APIXABAN 2.5 MG TABLET PO SCH ×2 (08:18→19:11)
[2021-07-15] MEDS: FOLIC ACID 1 MG TAB PO SCH (08:18)
[2021-07-15 11:09] LABS: Glucose,Whole Blood 137 mg/dL (75-99)
[2021-07-15 13:28] VITALS: BMI 23.3
--- NOTE | 2021-07-15 16:30 | P.PN ---
Subjective Progress Note Date: 07/15/21 This is an 81 year old male who presents with acute right cerebellar stroke following 2 previous strokes this year. Patient has been at subacute rehab. Patient evaluated today resting in bed. Apparently was confused last night. Currently sleeping, not answering questions during examination. Blood culture from the ninth is positive for staph hominis subspecies hominis, he continues IV Rocephin being followed closely by infectious disease. Repeat blood cultures are negative so far. Urine culture negative. No need for antibiotics on discharge. Patient was cleared by neurology for discharge. Labs are unavailable today, we will repeat on the morning. Blood glucose in the 130s. Patient is afebrile, heart rate 86, blood pressure 142/79, 95% room air. Continues in sinus rhythm, was previously discharged with event monitor in place. Unable to complete a full review of systems was patient is not answering questions PHYSICAL EXAMINATION: GENERAL: The patient is alert and oriented x1-2, not in any acute distress. Well developed, well nourished. Lethargic. HEENT: Pupils are round and equally reacting to light. EOMI. No scleral icterus. No conjunctival pallor. Normocephalic, atraumatic. No pharyngeal erythema. No thyromegaly. CARDIOVASCULAR: S1 and S2 present. No murmurs, rubs, or gallops. PULMONARY: Chest is clear to auscultation, no wheezing or crackles. ABDOMEN: Soft, nontender, nondistended, normoactive bowel sounds. No palpable organomegaly. MUSCULOSKELETAL: No joint swelling or deformity. EXTREMITIES: No cyanosis, clubbing, or pedal edema. NEUROLOGICAL: Unable to complete full neurological exam as patient is sleeping and uncooperative with exam SKIN: No rashes. Assessment and plan Assessment Acute right cerebellar stroke, possibly embolic in nature, started on eliquis for prophylaxis Positive blood culture which repeat x2 is negative, possibly a contaminant Hypertension Gait dysfunction Hypotension, present on admission, resolved Hyperlipidemia Diabetes mellitus type 2 History stroke in May 2021, and also beginning of July 2021 GI Prophylaxis DVT Prophylaxis Plan Repeat labs in AM Continue neuro checks Cleared by neurology for discharge Continue all other supportive care 1:1 aspiration precautions Possible DC in the next 24 to 48 hours to rehab Objective - Vital Signs Vital signs: Vital Signs Temp 97.4 F L 07/15/21 14:00 Pulse 86 07/15/21 14:00 Resp 16 07/15/21 14:00 BP 142/79 07/15/21 14:00 Pulse Ox 95 07/15/21 14:00 Intake & Output 07/14/21 07/15/21 07/15/21 18:59 06:59 18:59 Output Total 300 Balance -300 Weight 74 kg 74 kg Output: Urine 300 Other: Voiding Method External Catheter External Catheter External Catheter # Voids 2 1 - Labs CBC & Chem 7: 07/13/21 11:23 07/13/21 11:23 Labs: Abnormal Lab Results - Last 24 Hours (Table) 07/14/21 07/14/21 07/14/21 Range/Units 17:31 20:12 20:43 POC Glucose (mg/dL) 110 H 67 L 120 H (75-99) mg/dL 07/15/21 07/15/21 Range/Units 07:14 11:08 POC Glucose (mg/dL) 108 H 137 H (75-99) mg/dL Microbiology - Last 24 Hours (Table) 07/12/21 10:39 Blood Culture - Preliminary Blood No Growth after 72 hours 07/09/21 15:15 Blood Culture Gram Stain - Final Blood Blood Culture - Final Staph hominis sub sp. hominis 07/09/21 15:39 Blood Culture - Preliminary Blood No Growth after 120 hours 07/13/21 10:30 Urine Culture - Final Urine,Clean Catch Assessment and Plan Time with Patient: Less than 30
[2021-07-15 16:48] LABS: Glucose,Whole Blood 110 mg/dL (75-99)
[2021-07-15 19:07] LABS: Glucose,Whole Blood 115 mg/dL (75-99)
[2021-07-15] MEDS: LORazepam 2 MG/ML INJ IV PRN (19:10)
[2021-07-15] MEDS: ATORVASTATIN 40 MG TAB PO SCH (19:11)
[2021-07-15] MEDS: amLODIPine 2.5 MG TAB PO SCH (19:11)
[2021-07-15] MEDS: QUEtiapine 100 MG TAB PO SCH (19:11)
[2021-07-16 06:40] LABS: Glucose,Whole Blood 98 mg/dL (75-99)
[2021-07-16 07:05] VITALS: RESP 18
[2021-07-16] MEDS: INSULIN ASPART (NovoLOG) 100 UNIT/ML VIAL SQ SCH ×2 (08:26→12:44)
[2021-07-16] MEDS: SODIUM CHLORIDE 0.9% 1,000 ML IV SCH (09:54)
[2021-07-16 10:45] LABS: Glucose,Whole Blood 104 mg/dL (75-99)
[2021-07-16] MEDS: lisinopriL 20 MG TAB PO SCH (10:59)
[2021-07-16] MEDS: ASPIRIN 81 MG PO SCH (10:59)
[2021-07-16] MEDS: APIXABAN 2.5 MG TABLET PO SCH (10:59)
[2021-07-16] MEDS: FOLIC ACID 1 MG TAB PO SCH (11:00)
[2021-07-16] MEDS: PANTOPRAZOLE 40 MG/10 ML VIAL IV SCH (11:12)
[2021-07-16 11:45] LABS: Basophils # (A) 0.05 X 10*3/uL (0.00-0.10); Basophils % (A) 0.5 %; Eosinophils # (A) 0.34 X 10*3/uL (0.04-0.35); Eosinophils % (A) 3.2 %; HCT 33.4 % (39.6-50.0); HGB 10.9 g/dL (13.0-17.0); Immature Grans, Automated 1.6 %; Lymphocytes # (A) 1.26 X 10*3/uL (0.90-5.00); Lymphocytes % (A) 11.9 %; MCH 30.4 pg (27.0-32.0); MCHC 32.6 g/dL (32.0-37.0); MCV 93.3 fL (80.0-97.0); Mean Platelet Volume 9.7 fL (9.5-12.2); Monocytes # (A) 0.91 X 10*3/uL (0.20-1.00); Monocytes % (A) 8.6 %; NRBC Per 100 WBC 0 /100 WBCS (0.0-0.0); Neutrophils # (A) 7.85 X 10*3/uL (1.80-7.70); Neutrophils % (A) 74.2 %; Platelet Count 312 X 10*3/uL (140-440); RBC 3.58 X 10*6/uL (4.40-5.60); RDW 12.2 % (11.5-14.5); WBC 10.58 X 10*3/uL (4.50-10.00)
[2021-07-16 12:05] LABS: African American GFR (CKD) 85.3 (60.0-200.0); Anion Gap 9.7 mmol/L (10.00-18.00); BUN/Creat Ratio 11.18 Ratio (12.00-20.00); Blood Urea Nitrogen 10.7 mg/dL (9.0-27.0); Calcium 8.1 mg/dL (8.7-10.3); Carbon Dioxide 23.8 mmol/L (20.0-27.5); Non-African American GFR(CKD) 73.6 (60.0-200.0); Potassium 3.7 mmol/L (3.5-5.5)
--- NOTE | 2021-07-16 13:10 | P.DS ---
Providers Date of admission: 07/09/21 14:40 Attending physician: Roland Vivas Consults: 07/09/21 14:42 Consult Physician Routine Consulting Provider: Arun Juarez Consult Reason/Comments: Syncope, trop elevated Do you want consulting provider notified?: Yes 07/10/21 08:08 Consult Physician Routine Consulting Provider: Angelo Tyson Consult Reason/Comments: cva Do you want consulting provider notified?: Yes 07/10/21 12:03 Consult Physician Routine Consulting Provider: Keisha Purdy Consult Reason/Comments: low gfr; PICC line placement Do you want consulting provider notified?: Yes 07/11/21 22:46 Consult Physician Routine Consulting Provider: Gayatri Devine Consult Reason/Comments: + blood cultures Do you want consulting provider notified?: Yes Primary care physician: Michael Diego Hospital Course: Final Diagnosis Acute right cerebellar stroke, 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 Hypertension Gait dysfunction Hypotension, present on admission, resolved Hyperlipidemia Diabetes mellitus type 2 History stroke in May 2021, and also beginning of July 2021 Discharge disposition Patient stable for discharge to rehab today. Current mentation is alert times 2, person and place, unaware of the time. Diet recommendations are documented will need ongoing speech therapy. Hospital Course This is a 81 year old male who presented to the from rehab with hypotensive episode which resulted in collapse while working with PT at rehab. Patient was found to have low blood pressure on admission which has since improved. Creatinine was also elevated to 2.8, patient needs encouragement for oral intake. Patient follows with Dr. Diego in the primary care setting, current medical conditions include basal ganglia stroke, hard of hearing, diabetes mellitus type 2, hyperlipidemia. Patient was recently in the hospital for left amos lacunar stroke with an unremarkable ODALIS at that time. He was unable to get a loop recorder however was discharged with an event monitor. Patient's baseline is stable from previous admission, slow to respond. Does still have some aphasia and cognitive impairment since his stroke in May 2021. Due to acute recurrent strokes patient will be discharged on eliquis back to rehab. Patient was treated with IV fluids, and speech evaluation. Patient was evaluated by neurology and nephrology this admission as well as infectious disease. Brain CT on admission shows interval development of right cerebellar infarct inferiorly medially no evidence for hemorrhagic transformation. Chest x-ray shows basilar atelectasis favored over pneumonia. EKG on admission sinus rhythm with a right bundle branch block heart rate 88, QT interval 415. Labs on admission show white count 21.9, D1 69, creatinine 2.0, magnesium 2.7, troponins were negative, urinalysis was suggestive of infection. Urine culture negative Initial blood culture positive for staph hominis however repeat 2 has been negative 07/16/2021 Patient evaluated today sitting up in bed. He currently denies pain, cooperative, appropriate alert x2. He was treated inpatient with IV rocephin, he will not require antibiotics on discharge and all cultures are negative now. He was cleared by all consultations for discharge back to rehab. Most recent labs show a WBC of 10.7, Creatinine of 1.03. Vitals are stable, most recent blood pressure is 133/81, afebrile, 95% on room air, heart rate 78. He denies chest pain, chest pressure, cough or shortness of breath. No dizzines or lightheadedness. No acute events over night per nursing staff. Neurological exam reveals generalized weakness greater on the right than left. Pupils are responsive to light with right slightly more sluggish than left. He has been evaluated by speech therapy with diet recommendations of nectar thick liquids, one-to-one supervision with no straws and aspiration precautions. Patient was resumed back on his home blood pressure medications. Patient to follow up with neurology outpatient as previously recommended from last hospital stay. Please see medication recommendations for a list of current medications. Thank you for allowing us to participate in the care of this patient. Patient Condition at Discharge: Stable Plan - Discharge Summary New Discharge Prescriptions: New Apixaban [Eliquis] 2.5 mg PO BID tablet Continue lisinopriL [Zestril] 20 mg PO DAILY tab amLODIPine [Norvasc] 2.5 mg PO HS #1 tablet INSULIN ASPART (NovoLOG) [NovoLOG (formulary)] See Protocol SQ ACHS Aspirin 81 mg PO DAILY Linagliptin [Tradjenta] 5 mg PO DAILY QUEtiapine [SEROquel] 100 mg PO HS Folic Acid 1 mg PO DAILY [facility] Atorvastatin [Lipitor] 40 mg PO HS Discontinued Ticagrelor [Brilinta] 90 mg PO BID #42 tab Gabapentin [Neurontin] 100 mg PO BID #6 cap Discharge Medication List Aspirin 81 mg PO DAILY 05/27/21 [Rx] lisinopriL [Zestril] 20 mg PO DAILY tab 05/27/21 [Rx] Folic Acid 1 mg PO DAILY 07/01/21 [History] Healthshake 1 dose PO TID-W/MEALS 07/01/21 [History] Linagliptin [Tradjenta] 5 mg PO DAILY 07/01/21 [History] QUEtiapine [SEROquel] 100 mg PO HS 07/01/21 [History] amLODIPine [Norvasc] 2.5 mg PO HS #1 tablet 07/07/21 [Rx] Atorvastatin [Lipitor] 40 mg PO HS 07/09/21 [History] INSULIN ASPART (NovoLOG) [NovoLOG (formulary)] See Protocol SQ ACHS 07/09/21 [History] Apixaban [Eliquis] 2.5 mg PO BID tablet 07/11/21 [Rx] Follow up Appointment(s)/Referral(s): Michael Diego DO [Primary Care Provider] - 1-2 days Candelaria Davidson MD [STAFF PHYSICIAN] - 2 Weeks (Follow up neurointerventionalist for possible CT angiography and further work up ) Brown Ricks MD [Medical Doctor] - 2 Weeks (Keep appt from previous DC if have one) Ambulatory/Diagnostic Orders: Basic Metabolic Panel [LAB.AMB] Time Frame: 2 Days, Location: None Selected Complete Blood Count w/diff [LAB.AMB] Time Frame: 2 Days, Location: None Selected Activity/Diet/Wound Care/Special Instructions: Diet: Dysphagia Level I pureed diet 1:1 Supervision [place] thick liquids No straws Aspiration precautions Discharge Disposition: TRANSFER TO SNF/ECF
[2021-07-16 15:00] VITALS: BP 156/71; PULSE 83; TEMP 98
--- NOTE | 2021-07-17 07:25 | FL ---
Modified barium swallow. HISTORY: Dysphagia. Modified barium swallow was performed with the department of speech pathology. The patient was prese nted with various consistencies of barium. There is minimal aspiration noted with thin liquid barium and nectar thick barium. Full report is to follow from the department of speech pathology. Impression: As above
== END 2021-07-16 17:12 | DRG 64 ==
LOC: EC 12:34 → 3SCARD 14:40 → 4SSUR 07-13 18:24
PROVIDERS: ADMIT Hospitalist; ATTEND Hospitalist
PROC: 02HV33Z Insertion of Infusion Device into Superior Vena Cava, Percutaneous Approach (ICD-10-PCS; principal; 2021-07-10 09:30)
DX: I63.441 Cerebral infarction due to embolism of right cerebellar artery (principal); N17.0 Acute kidney failure with tubular necrosis; J98.11 Atelectasis; N17.9 Acute kidney failure, unspecified; R47.1 Dysarthria and anarthria; I10 Essential (primary) hypertension; E11.9 Type 2 diabetes mellitus without complications; E78.5 Hyperlipidemia, unspecified; E86.0 Dehydration; E86.1 Hypovolemia; F01.50 Vascular dementia, unspecified severity, without behavioral disturbance, psychotic disturbance, mood disturbance, and anxiety; H91.90 Unspecified hearing loss, unspecified ear; I45.10 Unspecified right bundle-branch block; R13.10 Dysphagia, unspecified; R26.9 Unspecified abnormalities of gait and mobility; R47.01 Aphasia; R82.81 Pyuria; R56.9 Unspecified convulsions; Z79.01 Long term (current) use of anticoagulants; Z79.02 Long term (current) use of antithrombotics/antiplatelets; Z79.82 Long term (current) use of aspirin; Z79.84 Long term (current) use of oral hypoglycemic drugs; Z79.899 Other long term (current) drug therapy; Z80.0 Family history of malignant neoplasm of digestive organs; Z80.1 Family history of malignant neoplasm of trachea, bronchus and lung; Z80.3 Family history of malignant neoplasm of breast; Z86.73 Personal history of transient ischemic attack (TIA), and cerebral infarction without residual deficits
CPT/HCPCS: 36415; 36573; 70450; 71045; 74230; 80048; 80053; 81001; 83605; 83735; 84145; 84484; 85025; 85610; 85730; 86140; 87040; 87077; 87086; 87186; 93005; 94760; 96361; 96365; 99285